=== PATIENT | male | born 1960 | race Caucasian/White ===

== ENCOUNTER → 2016-09-21 | Outpatient (CLI) | payer BC ==
[2016-09-21 11:02] LABS: Basophils # (A) 0.1 k/uL (0-0.2); Basophils % (A) 1 %; CH 29.5; CHCM 33.6; Eosinophils # (A) 0.2 k/uL (0-0.7); Eosinophils % (A) 2 %; HCT 48.9 % (39.0-53.0); HDW 2.71; HGB 16.4 gm/dL (13.0-17.5); Luc # (Auto) 0.14; Luc % (Auto) 2; Lymphocytes # (A) 2.6 k/uL (1.0-4.8); Lymphocytes % (A) 28 %; MCH 29.6 pg (25.0-35.0); MCHC 33.5 g/dL (31.0-37.0); MCV 88.3 fL (80.0-100.0); Mean Platelet Volume 8.8; Monocytes # (A) 0.7 k/uL (0-1.0); Monocytes % (A) 7 %; Neutrophils # (A) 5.7 k/uL (1.3-7.7); Neutrophils % (A) 61 %; RBC 5.53 m/uL (4.30-5.90); RDW 13.5 % (11.5-15.5); WBC 9.4 k/uL (3.8-10.6); WBC (Perox) 9.46
[2016-09-21 11:08] LABS: ALT 35 U/L (21-72); AST 29 U/L (17-59); Alkaline Phosphatase 45 U/L (38-126); Anion Gap 12 mmol/L; Blood Urea Nitrogen 10 mg/dL (9-20); Calcium 9.1 mg/dL (8.4-10.2); Carbon Dioxide 27 mmol/L (22-30); Chloride 102 mmol/L (98-107); Cholesterol 144 mg/dL (<200); Glucose 110 mg/dL (74-99); HDL Cholesterol 36 mg/dL (40-60); Non-African American GFR(MDRD) >60 (>60 ml/min/1.73 sqM); Sodium 141 mmol/L (137-145); Total Bilirubin 0.9 mg/dL (0.2-1.3); Triglycerides 220 mg/dL (<150); Uric Acid 8.7 mg/dL (3.5-8.5)
[2016-09-21 11:38] LABS: Prostate Specific Antigen <0.06 ng/mL (0.00-4.00)
[2016-09-21 12:25] LABS: Appearance,Urine Turbid (Clear); Bilirubin,Urine Negative (Negative); Glucose,Urine (UA) Negative (Negative); Ketones,Urine Negative (Negative); Leukocyte Esterase,Urine Large (Negative); Mucus,Urine Occasional /hpf; Nitrite,Urine Negative (Negative); PH, Urine 7.5 (5.0-8.0); Particle Count 134052; Protein,Urine Trace (Negative); RBC,Urine 13 /hpf (0-5); Squamous Epithelial Cell,Urine 8 /hpf (0-4); UA Billing (MACRO vs. MICRO) MICRO; Urobilinogen,Urine <2.0 mg/dL (<2.0); WBC,Urine >182 /hpf (0-5)
[2016-09-21 12:46] LABS: Hepatitis C Virus IgG Ab Negative (Negative); Hepatitis C Virus IgG Index 0.03
== END | disposition home or self-care (01) ==
LOC: LABWHC1 10:36
PROVIDERS: ATTEND Family Medicine
DX: Z00.01 Encounter for general adult medical examination with abnormal findings (principal); I10 Essential (primary) hypertension; R33.9 Retention of urine, unspecified; M10.9 Gout, unspecified; Z13.9 Encounter for screening, unspecified
CPT/HCPCS: 36415; 80053; 80061; 81001; 84153; 84550; 85025; 86803

== ENCOUNTER 2023-09-26 19:17 | Inpatient (IN) | payer BC ==
[2023-09-26] MEDS: MIDAZOLAM 1 MG/ML 5 ML VIAL IV STA (19:20)
[2023-09-26] MEDS ORDERED: NITROGLYCERIN SL TABS 0.4 MG TAB SUBLINGUAL PRN ×2 (19:29→21:06)
[2023-09-26] MEDS ORDERED: HEPARIN SODIUM 1,000 UN/ML (10ML VL) IV PRN (19:30)
--- NOTE | 2023-09-26 19:31 | ED ---
CPR HPI - General Chief Complaint: Cardiac Arrest/CPR Stated Complaint: Stemi Source: EMS, RN notes reviewed, old records reviewed Mode of arrival: EMS Limitations: no limitations - History of Present Illness Initial Comments: This is a 62-year-old male to the ER for evaluation today. Patient presents today for evaluation regards to w cardiac arrest. Patient brought in by EMS after getting ACLS protocol. Patient did have a ventricular tachycardia versus ventricular fibrillation arrest with ST elevation on initial EKG Patient was paged ST elevation LA prehospital MD Complaint: found unresponsive, collapsed during rest -: hour(s) (30) Place: home Bystander CPR Performed: No AED Applied by Bystander/Subcontract Manager: Yes Shock Advised: Yes Number of Shocks Delivered: 1 ROSC in the Field: Yes Associated Injuries: Yes Associated Symptoms: chest pain Treatments Prior to Arrival: BMV, other airway device, epinephrine mgs # - Related Data Home Medications Medication Instructions Recorded Confirmed amLODIPine BESYLATE [Amlodipine 10 mg PO DAILY 11/05/15 09/26/23 Besylate] lisinopriL [Lisinopril] 40 mg PO DAILY 11/05/15 09/26/23 Tamsulosin HCl [Flomax] 0.4 mg PO DAILY 02/15/16 09/26/23 Indomethacin [Indocin] 50 mg PO TID PRN 09/26/23 09/26/23 Tamsulosin [Flomax] 0.4 mg PO DAILY 09/26/23 09/26/23 allopurinoL [Zyloprim] 300 mg PO BID 09/26/23 09/26/23 Allergies Allergy/AdvReac Type Severity Reaction Status Date / Time No Known Allergies Allergy Verified 09/26/23 19:23 Review of Systems ROS Statement: Those systems with pertinent positive or pertinent negative responses have been documented in the HPI. ROS Other: All systems not noted in ROS Statement are negative. Past Medical History Past Medical History: Hypertension Additional Past Medical History / Comment(s): POSS BPH, NOT EMPTYING BLADDER COMPLETELY, TRYING NEW RX. History of Any Multi-Drug Resistant Organisms: None Reported Past Surgical History: Orthopedic Surgery Additional Past Surgical History / Comment(s): CYST REMOVED RT WRIST. COLONOSCOPY. SINUS SX Past Anesthesia/Blood Transfusion Reactions: No Reported Reaction Past Psychological History: No Psychological Hx Reported Past Alcohol Use History: Occasional Past Drug Use History: None Reported - Past Family History Mother Family Medical History: No Reported History General Exam General appearance: alert, in no apparent distress Head exam: Present: atraumatic, normocephalic, normal inspection Eye exam: Present: normal appearance, PERRL, EOMI. Absent: scleral icterus, conjunctival injection, periorbital swelling ENT exam: Present: normal exam, mucous membranes moist Neck exam: Present: normal inspection. Absent: tenderness, meningismus, lymphadenopathy Respiratory exam: Present: normal lung sounds bilaterally. Absent: respiratory distress, wheezes, rales, rhonchi, stridor Cardiovascular Exam: Present: regular rate, normal rhythm, normal heart sounds. Absent: systolic murmur, diastolic murmur, rubs, gallop, clicks GI/Abdominal exam: Present: soft, normal bowel sounds. Absent: distended, tenderness, guarding, rebound, rigid Extremities exam: Present: normal inspection, full ROM, normal capillary refill. Absent: tenderness, pedal edema, joint swelling, calf tenderness Back exam: Present: normal inspection Neurological exam: Present: alert, oriented X3, CN II-XII intact Psychiatric exam: Present: normal affect, normal mood Skin exam: Present: warm, dry, intact, normal color. Absent: rash Course Vital Signs 09/26/23 09/26/23 09/26/23 19:19 19:25 19:40 Temperature 97.9 F Pulse Rate 74 84 Respiratory 20 20 Rate Blood Pressure 95/80 96/65 O2 Sat by Pulse 86 L 100 Oximetry Fraction of 100 Inspired Oxygen (FIO2) - Reevaluation(s) Reevaluation #1: 09/26/23 20:45 Medical records reviewed Reevaluation #2: 09/26/23 20:45 Patient symptoms unchanged Reevaluation #3: 09/26/23 20:45 Patient informed of results and questions answered Reevaluation #4: Was pt. sent in by a medical professional or institution (, PA, FEATHERER, urgent care, hospital, or alf...) When possible be specific @ -no Did you speak to anyone other than the patient for history (EMS, parent, family, police, friend...)? What history was obtained from this source @ -no Did you review nursing and triage notes (agree or disagree)? Why? @ -agree Are old charts reviewed (outside hosp., previous admission, EMS record, old EKG, old radiological studies, urgent care reports/EKG's, alf records)? Report findings @ -yes Differential Diagnosis (chest pain, altered mental status, abdominal pain women, abdominal pain men, vaginal bleeding, weakness, fever, dyspnea, syncope, headache, dizziness, GI bleed, back pain, seizure, CVA, palpatations, mental health, musculoskeletal)? @ -prior EKG interpreted by me (3pts min.). @ -yes X-rays interpreted by me (1pt min.). @ -yes negative for acute disease CT interpreted by me (1pt min.). @ -no U/S interpreted by me (1pt. min.). @ -no What testing was considered but not performed or refused? (CT, X-rays, U/S, labs)? Why? @ -none What meds were considered but not given or refused? Why? @ -none Did you discuss the management of the patient with other professionals (professionals i.e. , PA, FEATHERER, lab, RT, psych nurse, social services assistant, dryland farmer, teacher, security police officer, case supervisor)? Give summary @ -no Was smoking cessation discussed for >3mins.? @ -no Were there social determinants of health that impacted care today? How? (Homelessness, low income, unemployed, alcoholism, drug addiction, tr ansportation, low edu. Level, literacy, decrease access to med. care, care home, rehab)? @ -none Was there de-escalation of care discussed even if they declined (Discuss DNR or withdrawal of care, Hospice)? DNR status @ -no What co-morbidities impacted this encounter? (DM, HTN, Smoking, COPD, CAD, Canc er, CVA, ARF, Chemo, Hep., AIDS, mental health diagnosis, sleep apnea, morbid obesity)? @ -none Was patient admitted / discharged? Hospital course, mention meds given and route, prescriptions, significant lab abnormalities, going to OR and other pertinent info. @ - 62 male to the ER for evaluation of significant for cardiac arrest ventricular tachycardic arrest patient will be admitted to the Lead Technical [facility] for cardiac arrest Admitted Was critical care preformed (if so, how long)? @ -yes31 Undiagnosed new problem with uncertain prognosis? @ -no Drug Therapy requiring intensive monitoring for toxicity (Heparin, Nitro, Insulin, Cardizem)? @ -no Were any procedures done? @ -no Diagnosis/symptom? @ - Acute, or cardiopulmonary arrest or Acute on Chronic? @ -Acute Uncomplicated (without systemic symptoms) or Complicated (systemic symptoms)? @ -Complicated Side effects of treatment? @ -no Exacerbation, Progression, or Severe Exacerbation? @ -exacerbation Poses a threat to life or bodily function? How? (Chest pain, USA, LA, pneumonia, PE, COPD, DKA, ARF, appy, cholecystitis, CVA, Diverticulitis, Homicidal, Suicidal, threat to staff... and all critical care pts) @ -yes with significant ST elevated [place] Reevaluation #5: Hypoxia,Hacidosis,HyperK,HypoGlycemia,Hypotension Trauma,Toxin,Tamponade,Ptx,Thrombosis - Consultations Consultation #1: With Dr. Carlson seeing patient here in the emergency department Consultation #2: Spoke with [facility] who agrees to admit this patient Procedures - Intubation Sedative: Versed Laryngoscope: Sujey Size: 4 ET Tube Size: 8.5 ET Tube Uncuffed: Yes Tube Secured Location: teeth Tube Placement Confirmation: visualized tube passing through cords, equal breath sounds bilaterally Patient Tolerated Procedure: well Intubation Complications: none, difficult intubation Medical Decision Making - Medical Decision Making 62 male to the ER for evaluation of significant for cardiac arrest ventricular tachycardic arrest patient will be admitted to the Lead Technical Architect for cardiac arrest - Lab Data Result diagrams: 09/30/23 04:16 09/30/23 04:16 Lab Results 09/26/23 09/26/23 09/26/23 Range/Units 19:20 19:20 19:20 WBC (3.8-10.6) k/uL RBC (4.30-5.90) m/uL Hgb (13.0-17.5) gm/dL Hct (39.0-53.0) % MCV (80.0-100.0) fL MCH (25.0-35.0) pg MCHC (31.0-37.0) g/dL RDW (11.5-15.5) % Plt Count (150-450) k/uL MPV Neutrophils % % Lymphocytes % % Monocytes % % Eosinophils % % Basophils % % Neutrophils # (1.3-7.7) k/uL Lymphocytes # (1.0-4.8) k/uL Monocytes # (0-1.0) k/uL Eosinophils # (0-0.7) k/uL Basophils # (0-0.2) k/uL PT 11.7 (10.0-12.5) sec INR 1.1 (<1.2) APTT 25.2 (22.0-30.0) sec Sodium 136 L (137-145) mmol/L Potassium 4.3 (3.5-5.1) mmol/L Chloride 103 (98-107) mmol/L Carbon Dioxide 21 L (22-30) mmol/L Anion Gap 12 mmol/L BUN 18 (9-20) mg/dL Creatinine 1.10 (0.66-1.25) mg/dL Est GFR (CKD-EPI)AfAm 82 (>60 ml/min/1.73 sqM) Est GFR (CKD-EPI)NonAf 71 (>60 ml/min/1.73 sqM) Glucose 230 H (74-99) mg/dL Calcium 8.6 (8.4-10.2) mg/dL Magnesium 1.7 (1.6-2.3) mg/dL Total Bilirubin 0.8 (0.2-1.3) mg/dL AST 125 H (17-59) U/L ALT 73 H (4-49) U/L Alkaline Phosphatase 49 (38-126) U/L Troponin I 0.482 H* (0.000-0.034) ng/mL Total Protein 6.4 (6.3-8.2) g/dL Albumin 3.8 (3.5-5.0) g/dL 09/26/23 Range/Units 19:29 WBC 18.9 H (3.8-10.6) k/uL RBC 5.31 (4.30-5.90) m/uL Hgb 15.8 (13.0-17.5) gm/dL Hct 50.1 (39.0-53.0) % MCV 94.3 (80.0-100.0) fL MCH 29.8 (25.0-35.0) pg MCHC 31.6 (31.0-37.0) g/dL RDW 13.3 (11.5-15.5) % Plt Count 272 (150-450) k/uL MPV 9.8 Neutrophils % 79 % Lymphocytes % 17 % Monocytes % 2 % Eosinophils % 1 % Basophils % 1 % Neutrophils # 15.0 H (1.3-7.7) k/uL Lymphocytes # 3.1 (1.0-4.8) k/uL Monocytes # 0.4 (0-1.0) k/uL Eosinophils # 0.2 (0-0.7) k/uL Basophils # 0.2 (0-0.2) k/uL PT (10.0-12.5) sec INR (<1.2) APTT (22.0-30.0) sec Sodium (137-145) mmol/L Potassium (3.5-5.1) mmol/L Chloride (98-107) mmol/L Carbon Dioxide (22-30) mmol/L Anion Gap mmol/L BUN (9-20) mg/dL Creatinine (0.66-1.25) mg/dL Est GFR (CKD-EPI)AfAm (>60 ml/min/1.73 sqM) Est GFR (CKD-EPI)NonAf (>60 ml/min/1.73 sqM) Glucose (74-99) mg/dL Calcium (8.4-10.2) mg/dL Magnesium (1.6-2.3) mg/dL Total Bilirubin (0.2-1.3) mg/dL AST (17-59) U/L ALT (4-49) U/L Alkaline Phosphatase (38-126) U/L Troponin I (0.000-0.034) ng/mL Total Protein (6.3-8.2) g/dL Albumin (3.5-5.0) g/dL - EKG Data -: EKG Interpreted by Me (EKG shows flutter waves 58 QRS 72 QTc 566) Rate: bradycardia - Radiology Data Radiology results: report reviewed (Chest x-ray shows positive ET tube placement), image reviewed Critical Care Time Critical Care Time: Yes Total Critical Care Time: 31 Disposition Clinical Impression: Acute myocardial infarction, Acute respiratory failure, Cardiac arrest, Ventricular tachycardia Disposition: ADMITTED IP TO THIS [facility] Condition: Critical Is patient prescribed a controlled substance at d/c from ED?: No Time of Disposition: 19:55
[2023-09-26] MEDS: HEPARIN SODIUM 1,000 UN/ML (10ML VL) IV ONE (19:40)
[2023-09-26] MEDS ORDERED: VERAPAMIL 2.5 MG/ML 2 ML AMP ONE (19:40)
[2023-09-26] MEDS: ASPIRIN 300 MG SUPP RECTAL STA (19:41)
[2023-09-26] MEDS: SODIUM CHLORIDE 0.9% 500 ML 500 ML IV STA (19:41)
[2023-09-26] MEDS ORDERED: LIDOCAINE 1% INJ 10MG/ML (20 ML MDV) ONE (19:41)
[2023-09-26] MEDS ORDERED: fentaNYL (PF) 50 MCG/ML 2 ML AMP ONE (19:41)
[2023-09-26] MEDS ORDERED: HEPARIN SODIUM 1,000 UN/ML (10ML VL) ONE (19:41)
[2023-09-26] MEDS: SODIUM CHLORIDE 0.9% 1,000 ML IV ONE (19:49)
[2023-09-26 19:55] LABS: Basophils # (A) 0.2 k/uL (0-0.2); Basophils % (A) 1 %; Eosinophils # (A) 0.2 k/uL (0-0.7); Eosinophils % (A) 1 %; HCT 50.1 % (39.0-53.0); HGB 15.8 gm/dL (13.0-17.5); Lymphocytes # (A) 3.1 k/uL (1.0-4.8); Lymphocytes % (A) 17 %; MCH 29.8 pg (25.0-35.0); MCHC 31.6 g/dL (31.0-37.0); MCV 94.3 fL (80.0-100.0); Mean Platelet Volume 9.8; Monocytes # (A) 0.4 k/uL (0-1.0); Monocytes % (A) 2 %; Neutrophils % (A) 79 %; Platelet Count 272 k/uL (150-450); RBC 5.31 m/uL (4.30-5.90); RDW 13.3 % (11.5-15.5); WBC 18.9 k/uL (3.8-10.6)
--- NOTE | 2023-09-26 19:56 | P.CRDCN ---
History of Present Illness History of present illness: HISTORY OF PRESENTING ILLNESS This is a pleasant 62-year-old with past medical history significant for obesity, gout, hypertension. patient unresponsive on ventilator and history is supplied by chart, EMS and ER. Per EMS patient had been with his and had been feeling fine and actually had a recent visit within the last few days with one of his doctors and was told he was doing fairly well. apparently patient had slumped over at the table and became unresponsive. No reported complaints prior to this. EMS was called and was there with patient not having a pulse and given CPR and epinephrine with reported initial rhythm of PEA and then second pulse check ventricular tachycardia. Patient had wide complex rhythm and EKG concerning for ST elevation anteriorly and therefore granulating blender was activated in route.per report from EMS patient had been down believes approximately 10 mi nutes. did not give CPR. Patient had agonal breathing on arrival and pinpoint pupils and nonresponsive. Patient was not given more sedation and not responding after return of spontaneous circulation. Patient was however given 10 mg of Versed in the emergency department and currently unresponsive on ventilator. EKG showing atrial flutter with slow ventricular rate, right bundle branch morphology with Q waves inferiorly and ST depressions in the lateral leads. previous EKG from 2016 did show right bundle-branch morphology with first-degree block and sinus bradycardia as well as ST depressions in the lateral leads. he is not on any pressors and blood pressures in the 90s over 80s. chest x-ray has not been interpreted however shows cardiomegaly and vascular congestion. REVIEW OF SYSTEMS At the time of my exam: unable to obtain secondary to sedation, unresponsive PHYSICAL EXAMINATION Vital signs reviewed. CONSTITUTIONAL: No apparent distress, obese, unresponsive on vent HEENT: Head is normocephalic. Pupils are equal, round. Sclerae anicteric. +ETT No JVD. No carotid bruit. CHEST EXAMINATION: Lungs are clear to auscultation. No chest wall tenderness is noted on palpation or with deep breathing. HEART EXAMINATION: Regular rate and rhythm. S1, S2 heard. No murmurs, gallops or rub. ABDOMEN: Soft, nontender. Positive bowel sounds. EXTREMITIES: 2+ peripheral pulses, no lower extremity edema and no calf tenderness. NEUROLOGIC EXAMINATION: Patient is awake, alert and oriented x3. ASSESSMENT 1. Cardiac arrest concerning for acute coronary syndrome 2. Reported ST elevation in EMS, EKG on presentation not meeting criteria for ST elevation 3. New-onset atrial flutter with slow ventricular rate 4. History of sinus bradycardia 5. Hypertension, currently borderline 6. Altered mental status, rule out anoxic brain injury 7. Morbid obesity PLAN Patient with acute onset cardiac arrest concerning for cardiac etiology. EKG not meeting criteria for STEMI however given presentation, risk factors and EKG having ST depressions we will check left heart catheterization for definitive evaluation. Check 2-D echo. If heart cath normal, would consider workup to rule out PE. Pressors as needed. Further recommendations to follow. Past Medical History Past Medical History: Hypertension Additional Past Medical History / Comment(s): POSS BPH, NOT EMPTYING BLADDER COMPLETELY, TRYING NEW RX. History of Any Multi-Drug Resistant Organisms: None Reported Past Surgical History: Orthopedic Surgery Additional Past Surgical History / Comment(s): CYST REMOVED RT WRIST. COLONOSCOPY. SINUS SX Past Anesthesia/Blood Transfusion Reactions: No Reported Reaction Past Psychological History: No Psychological Hx Reported Past Alcohol Use History: Occasional Past Drug Use History: None Reported - Past Family History Mother Family Medical History: No Reported History Medications and Allergies Home Medications Medication Instructions Recorded Confirmed Type Aspirin [Adult Low Dose Aspirin EC] 81 mg PO DAILY 11/05/15 02/15/16 History Metoprolol Tartrate [Lopressor] 100 mg PO DAILY 11/05/15 02/16/16 History Multivitamin [Men's Multi-Vitamin] 1 each PO DAILY 11/05/15 02/15/16 History amLODIPine BESYLATE [Amlodipine 10 mg PO DAILY 11/05/15 02/16/16 History Besylate] lisinopriL [Lisinopril] 40 mg PO DAILY 11/05/15 02/16/16 History Tamsulosin HCl [Flomax] 0.4 mg PO DAILY 02/15/16 02/16/16 History Docusate [Colace] 100 mg PO BID #30 capsule 02/16/16 Rx HYDROcodone/APAP 5-325MG [[place] 1 tab PO Q4HR PRN #30 tab 02/16/16 Rx 5-325] Allergies Allergy/AdvReac Type Severity Reaction Status Date / Time No Known Allergies Allergy Verified 09/26/23 19:23 Physical Exam Vitals: Vital Signs Pulse Resp BP Pulse Ox 09/26/23 19:19 74 20 95/80 86 L Intake and Output 09/26/23 09/26/23 09/26/23 06:59 14:59 22:59 Other: Weight 158.757 kg Results Current Medications Generic Name Dose Route Start Last Admin Trade Name Freq PRN Reason Stop Dose Admin Heparin Sodium (Porcine) 0 unit 09/26/23 19:30 Heparin Sodium 1,000 Un/Ml (10ml Vl) IV PER PROTOCOL PRN Low PTT Protocol Sodium Chloride 500 mls @ 999 mls/hr 09/26/23 19:29 09/26/23 19:41 Saline 0.9% IV 09/26/23 19:59 999 mls/hr .Q31M STA Administration Amiodarone HCl 360 mg/ 200 mls @ 33.333 mls/hr 09/26/23 20:00 Dextrose/Water IV 09/27/23 01:59 .Q6H ONE Protocol 1 MG/MIN Amiodarone HCl 450 mg/ 250 mls @ 16.667 mls/hr 09/27/23 02:00 Dextrose/Water IV 09/27/23 19:59 .Q15H MARICRUZ Protocol 0.5 MG/MIN Heparin Sodium/Sodium Chloride 250 mls @ 10 mls/hr 09/26/23 19:30 25,000 unit/ Sodium Chloride IV .Q24H MARICRUZ Protocol 6.299 UNITS/KG/HR Nitroglycerin 0.4 mg 09/26/23 19:29 Nitroglycerin Sl Tabs 0.4 Mg Tab SUBLINGUAL Q5M PRN Chest Pain Intake and Output 09/26/23 09/26/23 09/26/23 06:59 14:59 22:59 Other: Weight 158.757 kg Patient Weight 09/27/23 06:59 Weight 158.757 kg
[2023-09-26] MEDS ORDERED: NALOXONE 0.4 MG/ML 1 ML VIAL IV PRN (19:57)
[2023-09-26] MEDS ORDERED: AMIODARONE 360 MG in DEXTROSE 5% IN WATER 200 ML IV ONE (20:00)
[2023-09-26] MEDS: LIDOCAINE 1% INJ 10MG/ML (20 ML MDV) SQ ONE (20:02)
[2023-09-26] MEDS: VERAPAMIL SYRINGE (5 MG/10 ML) INTRAARTER ONE (20:02)
[2023-09-26 20:04] LABS: INR 1.1 (<1.2); Partial Thromboplastin Time 25.2 sec (22.0-30.0); Prothrombin Time 11.7 sec (10.0-12.5)
[2023-09-26 20:07] LABS: ALT 73 U/L (4-49); AST 125 U/L (17-59); African American GFR (CKD) 82 (>60 ml/min/1.73 sqM); Albumin 3.8 g/dL (3.5-5.0); Alkaline Phosphatase 49 U/L (38-126); Anion Gap 12 mmol/L; Blood Urea Nitrogen 18 mg/dL (9-20); Calcium 8.6 mg/dL (8.4-10.2); Carbon Dioxide 21 mmol/L (22-30); Chloride 103 mmol/L (98-107); Glucose 230 mg/dL (74-99); Magnesium 1.7 mg/dL (1.6-2.3); Non-African American GFR(CKD) 71 (>60 ml/min/1.73 sqM); Potassium 4.3 mmol/L (3.5-5.1); Sodium 136 mmol/L (137-145); Total Bilirubin 0.8 mg/dL (0.2-1.3); Total Protein 6.4 g/dL (6.3-8.2)
[2023-09-26] MEDS: HEPARIN SODIUM 1,000 UN/ML (10ML VL) IVP ONE (20:07)
[2023-09-26] MEDS: PHENYLEPHRINE 10 MG/ML VIAL IV ONE (20:08)
[2023-09-26] MEDS ORDERED: TICAGRELOR 90 MG TAB ONE (20:24)
[2023-09-26] MEDS: fentaNYL (PF) 50 MCG/1 ML VIAL IVP ONE (20:31)
[2023-09-26] MEDS: MIDAZOLAM 2 MG/2 ML VIAL IVP ONE (20:31)
[2023-09-26] MEDS ORDERED: ONDANSETRON 4 MG/2 ML VIAL IVP PRN (20:37)
[2023-09-26] MEDS: TICAGRELOR 90 MG TAB OG-TUBE ONE (20:50)
[2023-09-26] MEDS: IOPAMIDOL-370 100ML BTL INJ ONE ×2 (20:50)
[2023-09-26] MEDS ORDERED: ATROPINE SULFATE 0.1 MG/ML 10ML SYRINGE IV PRN (21:06)
[2023-09-26] MEDS ORDERED: ZOLPIDEM 5 MG TAB PO PRN (21:06)
[2023-09-26] MEDS ORDERED: RX INFO: IV CONTRAST WAS GIVEN 1 EACH MISC MISCELLANE PRN (21:06)
[2023-09-26] MEDS ORDERED: MAG HYDROX/AL HYDROX/SIMETH 30 ML CUP PO PRN (21:06)
[2023-09-26 21:16] LABS: Glucose,Whole Blood 152 mg/dL (70-110)
--- NOTE | 2023-09-26 21:17 | P.PRCINT ---
Percutaneous Coronary Int. - Percutaneous Coronary Intervention Percutaneous Coronary Intervention: PROCEDURES PERFORMED: Left heart catheterization, bilateral coronary angiography, ultrasound guided arterial access, IVUS LAD, PCI mid LAD with a 3.25 x 28mm Xience MARIO, post dilated with a 3.25mm NC balloon INDICATION: Cardiac arrest, NSTEMI CONSENT:I have discussed the risks, benefits and alternative therapies for the above-mentioned procedure and for both sedation/analgesia as well as necessary blood product administration, if indicated, as they pertain to this patient. The patient has indicated understanding and acceptance of the risks and procedures discussed. PROCEDURE: After the risks, benefits and alternatives of the above mentioned procedure explained in detail with the patient, informed consent was obtained. Patient was taken to the catheterization lab and prepped and draped in usual fashion. Ultrasound guidance was used to assess for arterial access. 1% lidocaine was used to anesthetize the right radial artery. A 6-Cuban sheath was placed in the right radial artery using modified Seldinger technique and ultrasound guidance. Left coronary angiography was performed with a 5-Cuban JL 3.5 catheter and right coronary angiography was performed with a 5-Cuban FR5 catheter in various views. A 5-Cuban FR5 catheter was inserted into the left ventricle and pressure measurements were obtained. There was haziness of the mid LAD with 80% appearing plaque. Therefore the decision was made to perform intravascular ultrasound/PCI of the LAD. A 6- [place] CLS 4.0 guide catheter was used to engage the left main. A 0.014 BMW wire was advanced in the distal LAD. Intravascular ultrasound showed diffuse mild plaque however no other focal 80% stenosis of the mid LAD with thrombus. Therefore decision made to perform PCI of LAD. The lesion was predilated with a 3.0 mm balloon. The reference vessel diameter was 3.25 mm. There was more diffuse distal 60-70% stenosis however mid LAD. The culprit lesion and therefore this was left for medical therapy. PCI was performed with a 3.25 x 28mm Xience MARIO. The proximal midportion of the stent were postdilated with a 3.25 mm noncompliant balloon. Repeat intravascular ultrasound showed well- expanded stent with no dissection and good stent apposition. Final angiograms were performed. Pre-intervention there is 80% stenosis and CECELIA-3 flow and postintervention there was less than 10% stenosis with CECELIA 3 flow. The right radial sheath was removed and a TR band was placed with hemostasis achieved. The patient tolerated the procedure well. Patient was transported back to the post catheterization holding area in stable condition. Conscious Sedation: Patient was monitored under the direct supervision of myself for conscious sedation using Versed and fentanyl for a total duration of 45 minutes HEMODYNAMICS: AO: 96/72 LV: 97/10, LVEDP 22 SELECTIVE CORONARY ARTERIOGRAPHY: LEFT MAIN: The left main is a large caliber vessel which bifurcates into the LAD and circumflex. There is no significant stenosis. LEFT ANTERIOR DESCENDING CORONARY ARTERY: LAD is a large caliber vessel which wraps around to the apex. There is no significant proximal LAD stenosis. Diagonal 1 is moderate caliber with a proximal to mid 40% stenosis. The entire mid to distal LAD has some diffuse disease with more focal 80% long tubular mid LAD stenosis after a larger first septal. The distal LAD has tandem 60% and 60- 70% stenosis. LEFT CIRCUMFLEX CORONARY ARTERY: Left circumflex is a moderate caliber vessel with a mid circumflex 30% stenosis. RIGHT CORONARY ARTERY: The right coronary artery is a large caliber vessel which gives off a PDA and PLV branch and is the dominant vessel. There is diffuse proximal to distal RCA disease with 20-30% stenoses. The mid to distal RCA has a focal 50-60% stenosis. FINAL IMPRESSION: 1. CAD as described above including 80% mid LAD, distal LAD 60-70%, circumflex 30% and mid to distal RCA 50-60% stenosis. 2. Elevated left sided filling pressures 3. S/p cardiac arrest PLAN: 1. Aggressive risk factor modification per most recent ACC/AHA guidelines. 2. Continue dual antiplatelets with aspirin and Brillinta for 12 months 3. Recommend medical therapy for RCA and distal LAD and less patient having more significant angina.
--- NOTE | 2023-09-26 21:28 | XR ---
EXAM: XR chest 1V portable CLINICAL INDICATION:Male, 62 years old with history of chest pain; [facility] COMPARISON: None. TECHNIQUE: Chest single view. FINDINGS: Lines/tubes/devices: ET tube tip about 2.9 cm above the diamante. Cardiomediastinum: Cardiac silhouette appears mildly enlarged. Unremarkable mediastinal silhouette. Vasculature: Mildly increased pulmonary vasculature. Lungs/pleura: No consolidation, sizeable effusion, or visible pneumothorax. Bones/soft tissues: Bony thorax appears grossly intact as seen. Regional soft tissues appear unremarkable. IMPRESSION: Mild cardiomegaly and mild pulmonary vascular congestion. ET tube in good position.
[2023-09-26 22:09] LABS: ABG Base Excess 0.4 mmol/L; ABG HCO3 26 mmol/L (21-25); ABG Oxygen Saturation 97.5 % (94-97); ABG PCO2 46 mmHg (35-45); ABG PH 7.37 (7.35-7.45); ABG PO2 100 mmHg (83-108); Allen Test Performed? Yes
[2023-09-26] MEDS: propofoL 100 ML IV ONE ×2 (23:15)
[2023-09-26] MEDS: SODIUM CHLORIDE 0.9% 1,000 ML IV SCH (23:15)
[2023-09-26] MEDS: HEPARIN SOD,PORK IN 0.45% NACL 25,000 UNIT in 0.45% NACL 1 250ML.BAG IV SCH (23:15)
--- NOTE | 2023-09-26 23:25 | XR ---
EXAM: XR Chest, 1 View CLINICAL HISTORY: ITS.REASON XR Reason: OG tube placement TECHNIQUE: Frontal view of the chest. COMPARISON: No relevant prior studies available. FINDINGS: Lungs: Unremarkable. No consolidation. Pleural space: Unremarkable. No pneumothorax. Heart: Unremarkable. No cardiomegaly. Mediastinum: Unremarkable. Normal mediastinal contour. Bones/joints: Unremarkable. No acute fracture. Tubes, lines and devices: Feeding tube terminates in the stomach. IMPRESSION: Feeding tube terminates in the stomach.
[2023-09-27] MEDS: HEPARIN SODIUM,PORCINE 5,000 UNIT/ML 1 ML VIAL SQ SCH (00:21)
[2023-09-27] MEDS: ATORVASTATIN 80 MG TAB PO SCH (00:21)
--- NOTE | 2023-09-27 01:04 | P.PCN ---
Date of Procedure: 09/27/23 Preoperative Diagnosis: Cardiac arrest, acute hypoxemic respiratory failure Postoperative Diagnosis: Cardiac arrest, acute hypoxemic respiratory failure Procedure(s) Performed: Insertion of a left wrist radial arterial line Indications for Procedure: Continuous blood pressure monitoring and frequent blood draws Description of Procedure: Informed consent was obtained, and a procedural timeout was performed . The patient was placed in supine position. The left radial region was prepared in a sterile fashion, and a sterile drape was applied. The left radial artery was palpated, easily cannulated, and a guidewire was placed. A Cook catheter was inserted over the guidewire, and the guidewire was removed. There was good arterial blood flow, good arterial waveform, and no complications. The line was secured with using a 3-0 silk suture.
[2023-09-27] MEDS: CHLORHEXIDINE GLUCONATE 15 ML CUP MUCOUS MEM SCH (01:57)
[2023-09-27] MEDS ORDERED: AMIODARONE 450 MG in DEXTROSE 5% IN WATER 250 ML IV SCH (02:00)
--- NOTE | 2023-09-27 02:15 | P.CNPUL ---
History of Present Illness Consult date: 09/27/23 Requesting physician: Eric Marcelo Reason for consult: other (Out of hospital cardiac arrest) Chief complaint: Out of hospital cardiac arrest History of present illness: Patient is a 62-year-old white male with past medical history significant for hypertension, obesity, and former tobacco smoker. Patient is currently intensive care unit, intubated and unable to provide any information. On review of the patient's EMR, the patient was an out of hospital cardiac arrest. He was apparently playing a board game on his phone, slumped over and became unresponsive. His then called 911. Patient was noted to have a V. tach/V- fib arrest by EMS. Estimated time before EMS arrival was 10 minutes, and did not provide CPR. ROSC was achieved in the field by EMS. May have had some ST elevation on initial EKG per EMS. On arrival to the emergency room, he was noted to be unresponsive after ROSC. The patient was intubated by the ER physician. Initial EKG done on arrival showed atrial flutter with slow ventricular rate, right bundle branch with Q waves inferiorly and ST depression in the lateral leads. Patient was emergently taken to the [facility], and was noted to have multivessel coronary artery disease including 80% stenosis of the mid LAD, 30% stenosis of the left circumflex, and 50 to 60% stenosis of the RCA. Patient did receive PCI/stenting of the mid LAD. He was then transferred to the intensive care unit in critical condition. I am evaluating this patient in room 262. He is intubated to the mechanical ventilator. Chest x-ray shows the endotracheal tube approximately 2.9 cm above the diamante. NG tube courses into the stomach. There is mild cardiomegaly and pulmonary vascular congestion. No effusions, pneumothoraces, focal infiltrates. Current ventilator settings include assist-control, respiratory rate 18, tidal volume 500, FiO2 60%, PEEP of 5. He is breathing above set rate in the mid 20s. ABGs done on the above- mentioned settings but an FiO2 of 100% had a PaO2 of 100, pCO2 46, pH of 7.37. He is sedated on propofol at 40 mcg/kg/min. Does not follow any commands. Unresponsive to painful stimuli at this time. Heart rhythm on bedside monitor appears first-degree AV block, with a heart rate of 60 bpm. Blood pressure is normotensive. He has received a total of 1.5 L normal saline bolus since arrival to the emergency room. Currently has normal saline infusing at 75 mL/h. No vasopressors have been required. Temperature currently 98.5 F. CBC on arrival: WBC count 18.9, hemoglobin 15.8, hematocrit 50.1, platelets 272. CMP on arrival: Sodium 136, potassium 4.3, chloride 103, serum bicarb 21, BUN 18, creatinine 1.1, glucose 230. Lactic acid level 3.1 and down to 2.2. LFTs mildly elevated. Troponin 0.482 and 0.848 respectively. NT proBNP 2900. Patient's has already left and went home for the night. Review of Systems ROS unobtainable: due to endotracheal tube, due to mental status Past Medical History Past Medical History: Hypertension Additional Past Medical History / Comment(s): POSS BPH, NOT EMPTYING BLADDER COMPLETELY, TRYING NEW RX. History of Any Multi-Drug Resistant Organisms: None Reported Past Surgical History: Orthopedic Surgery Additional Past Surgical History / Comment(s): CYST REMOVED RT WRIST. COLONOSCOPY. SINUS SX Past Anesthesia/Blood Transfusion Reactions: No Reported Reaction Past Psychological History: No Psychological Hx Reported Smoking Status: Never smoker Past Alcohol Use History: Occasional Past Drug Use History: None Reported - Past Family History Mother Family Medical History: No Reported History Medications and Allergies Home Medications Medication Instructions Recorded Confirmed Type amLODIPine BESYLATE [Amlodipine 10 mg PO DAILY 11/05/15 09/26/23 History Besylate] lisinopriL [Lisinopril] 40 mg PO DAILY 11/05/15 09/26/23 History Tamsulosin HCl [Flomax] 0.4 mg PO DAILY 02/15/16 09/26/23 History Indomethacin [Indocin] 50 mg PO TID PRN 09/26/23 09/26/23 History Tamsulosin [Flomax] 0.4 mg PO DAILY 09/26/23 09/26/23 History allopurinoL [Zyloprim] 300 mg PO BID 09/26/23 09/26/23 History Allergies Allergy/AdvReac Type Severity Reaction Status Date / Time No Known Allergies Allergy Verified 09/26/23 19:23 Physical Exam Vitals: Vital Signs Temp Pulse Pulse Resp BP BP Pulse Ox 09/27/23 00:01 09/26/23 23:45 62 26 H 99/72 94 L 09/26/23 23:30 63 18 93/70 94 L 09/26/23 23:22 09/26/23 23:15 61 25 H 92/62 99 09/26/23 23:00 63 23 85/61 99 09/26/23 22:45 63 19 87/62 99 09/26/23 22:30 98.5 F 68 63 18 83/53 110/79 99 09/26/23 22:15 66 26 H 68/41 99 09/26/23 22:00 66 18 92/62 99 09/26/23 21:51 98.5 F 66 26 H 09/26/23 21:45 76 18 94/63 99 09/26/23 21:30 75 32 H 114/80 99 09/26/23 21:18 09/26/23 21:15 73 30 H 110/79 09/26/23 21:14 30 H 110/79 09/26/23 21:12 09/26/23 20:15 09/26/23 19:40 09/26/23 19:25 84 20 96/65 100 09/26/23 19:19 97.9 F 74 20 95/80 86 L FiO2 09/27/23 00:01 60 09/26/23 23:45 09/26/23 23:30 09/26/23 23:22 60 09/26/23 23:15 09/26/23 23:00 09/26/23 22:45 09/26/23 22:30 100 09/26/23 22:15 09/26/23 22:00 09/26/23 21:51 100 09/26/23 21:45 09/26/23 21:30 09/26/23 21:18 100 09/26/23 21:15 09/26/23 21:14 09/26/23 21:12 100 09/26/23 20:15 100 09/26/23 19:40 100 09/26/23 19:25 09/26/23 19:19 Intake and Output 09/26/23 09/26/23 09/27/23 14:59 22:59 06:59 Intake Total 660.311 141 Output Total 400 30 Balance 260.311 111 Intake: IV 650 75 Sodium Chloride 0.9% 150 75 1000ml @ 75ml/hr Intake, IV Titration 10.311 66 Amount propofoL 1,000 mg In Empty Bag 1 bag @ 15 MCG/ KG/MIN 14.85 mls/hr IV . Q6H45M [facility] Rx#:[id number] Output: Urine 400 30 Other: Weight 165 kg GENERAL EXAM: Currently, unresponsive on the mechanical ventilator, breathing slightly above set rate, no seizure-like activity noted HEAD: Normocephalic and atraumatic EYES: Pupils approximately 1 mm in diameter, sluggish to light, equal size. NOSE: Clear with pink turbinates. THROAT: No erythema or exudates. NECK: No masses, no JVD. CHEST: No chest wall deformity. LUNGS: Equal air entry with no crackles, wheeze, rhonchi or dullness. Intubated to the mechanical ventilator, breathing slightly above set rate, peak pressures 19, no significant endotracheal secretions noted. CVS: S1 and S2 normal with no audible murmur, regular rhythm. No extra heart sounds ABDOMEN: No hepatosplenomegaly, active bowel sounds, no guarding or rigidity. SPINE: No scoliosis or deformity SKIN: No rashes CENTRAL NERVOUS SYSTEM: No obvious focal deficits, no seizure-like activity noted, no myoclonic jerks, eyes are midline, no nystagmus or asymmetry, no gag reflex, extremities are flaccid and did not withdraw to painful stimuli, patellar DTRs 1+ bilaterally, Babinski is neutral EXTREMITIES: There is no peripheral edema, clubbing, or cyanosis. Peripheral pulses are intact. Results - Laboratory Findings CBC and BMP: 09/26/23 19:09/26/23 19:20 ABG ABG pH 7.37 (7.35-7.45) 09/26/23 21:55 ABG pCO2 46 mmHg (35-45) H 09/26/23 21:55 ABG pO2 100 mmHg (83-108) 09/26/23 21:55 ABG O2 Saturation 97.5 % (94-97) H 09/26/23 21:55 PT/INR, D-dimer PT 11.7 sec (10.0-12.5) 09/26/23 19:20 INR 1.1 (<1.2) 09/26/23 19:20 Abnormal lab findings: Abnormal Labs 09/26/23 09/26/23 09/26/23 19:20 19:20 19:29 WBC 18.9 H Neutrophils # 15.0 H ABG pCO2 ABG HCO3 ABG O2 Saturation Sodium 136 L Carbon Dioxide 21 L Glucose 230 H POC Glucose (mg/dL) Plasma Lactic Acid Chase AST 125 H ALT 73 H Troponin I 0.482 H* 09/26/23 09/26/23 09/26/23 21:14 21:46 21:46 WBC Neutrophils # ABG pCO2 ABG HCO3 ABG O2 Saturation Sodium Carbon Dioxide Glucose POC Glucose (mg/dL) 152 H Plasma Lactic Acid Chase 3.1 H* AST ALT Troponin I 0.848 H* 09/26/23 21:55 WBC Neutrophils # ABG pCO2 46 H ABG HCO3 26 H ABG O2 Saturation 97.5 H Sodium Carbon Dioxide Glucose POC Glucose (mg/dL) Plasma Lactic Acid Chase AST ALT Troponin I - Diagnostic Findings Chest x-ray: image reviewed Assessment and Plan Assessment: Out of hospital cardiac arrest and suspected ACS, estimated downtime prior to EMS arrival was approximately 10 minutes, did not perform any CPR. Rhythm noted as V. tach versus V-fib arrest per EMS. ROSC was ultimately achieved in the field, and patient was intubated on arrival to the emergency department, there were concerns for airway protection as the patient was unresponsive. After ROSC, concerns for some potential ST elevation in route by EMS. Patient was emergently taken to the [facility] on arrival, and received 1 stent to the mid LAD. Acute hypoxemic respiratory failure, secondary to above, intubated to the mechanical ventilator. Chest x-ray shows the endotracheal tube in satisfactory position. Nasogastric tube also noted. There is mild cardiomegaly and pulmon shun vascular congestion. No pneumothoraces, pleural effusions, or focal infiltrates appreciated. Coronary artery disease, heart catheterization noted 80% stenosis of the mid LAD, 30% stenosis of the left circumflex, and 50 to 60% stenosis of the RCA. Patient did receive PCI/stenting of the mid LAD. Leukocytosis, likely reactive to cardiac arrest Mild transaminitis, likely secondary to cardiac arrest and hypoperfusion Altered mental status, rule out anoxic brain injury History of hypertension History of obesity with a BMI of 48 kg/m History of former tobacco dependence History of gout History of BPH Plan: Patient's medications, labs, imaging were reviewed Patient did undergo PCI/stenting of the mid LAD late last night. Follow-up echocardiogram is pending for later this morning Patient was noted to be atrial flutter with slow ventricular response earlier, beta-alissa currently on hold. Statin also on hold secondary to elevated LFTs. Started on dual antiplatelet medications. For tonight, he will remain on the mechanical ventilator with current settings. May wean FiO2 as tolerated. Ventilator bundle ordered. Wean sedation for appropriate RASS of 0 to -1 He is currently unresponsive, will have to rule out anoxic brain injury Not currently requiring any vasopressors No further arrhythmias noted. Heparin for DVT prophylaxis. Protonix for GI prophylaxis. Add dietary consult for tube feedings. Patient's condition is currently critical but stable, prognosis is guarded. He will continue to be monitored in the intensive care unit. I have personally seen and examined the patient, performed the documentation and the assessment and plan as written. Number of minutes spent on the visit:20 Time with Patient: Greater than 30
[2023-09-27] MEDS: MORPHINE SULFATE 4 MG/ML SYRINGE IV PRN (03:50)
[2023-09-27 04:45] LABS: Basophils % (A) 0 %; Eosinophils % (A) 0 %; HCT 47.1 % (39.0-53.0); HGB 15.4 gm/dL (13.0-17.5); Lymphocytes # (A) 0.9 k/uL (1.0-4.8); Lymphocytes % (A) 4 %; MCH 29.9 pg (25.0-35.0); MCHC 32.7 g/dL (31.0-37.0); MCV 91.6 fL (80.0-100.0); Mean Platelet Volume 9.8; Monocytes # (A) 1.2 k/uL (0-1.0); Monocytes % (A) 5 %; Neutrophils % (A) 90 %; Platelet Count 245 k/uL (150-450); RBC 5.15 m/uL (4.30-5.90); RDW 13.7 % (11.5-15.5); WBC 22.3 k/uL (3.8-10.6)
[2023-09-27 05:10] LABS: ABG HCO3 26 mmol/L (21-25); ABG Oxygen Saturation 94.4 % (94-97); ABG PCO2 40 mmHg (35-45); ABG PH 7.42 (7.35-7.45); ABG PO2 70 mmHg (83-108); Allen Test Performed? Yes
[2023-09-27 05:13] LABS: ALT 76 U/L (4-49); AST 84 U/L (17-59); African American GFR (CKD) 74 (>60 ml/min/1.73 sqM); Albumin 3.6 g/dL (3.5-5.0); Alkaline Phosphatase 62 U/L (38-126); Anion Gap 6 mmol/L; Blood Urea Nitrogen 24 mg/dL (9-20); Calcium 8.6 mg/dL (8.4-10.2); Carbon Dioxide 23 mmol/L (22-30); Chloride 106 mmol/L (98-107); Glucose 162 mg/dL (74-99); Magnesium 1.6 mg/dL (1.6-2.3); Non-African American GFR(CKD) 64 (>60 ml/min/1.73 sqM); Phosphorus 3.4 mg/dL (2.5-4.5); Potassium 4.2 mmol/L (3.5-5.1); Sodium 135 mmol/L (137-145); Total Bilirubin 0.6 mg/dL (0.2-1.3); Total Protein 6.2 g/dL (6.3-8.2)
[2023-09-27] MEDS ORDERED: MAGNESIUM SULFATE-D5W PMX 1 GM in DEXTROSE/WATER 1 100ML.BAG IVPB ONE (05:57)
[2023-09-27] MEDS ORDERED: Magnesium Replacement Protocol 1 EACH MISC MISCELLANE PRN (05:57)
[2023-09-27] MEDS: MAGNESIUM SULFATE-D5W PMX 1 GM in DEXTROSE/WATER 1 100ML.BAG IVPB SCH (06:18)
[2023-09-27 06:30] LABS: Glucose,Whole Blood 169 mg/dL (70-110)
--- NOTE | 2023-09-27 08:06 | XR ---
EXAMINATION TYPE: XR chest 1V portable DATE OF EXAM: 09/27/2023 Comparison: 09/26/2023 Clinical History: 62-year-old male Tube placement Findings: ET and NG tubes are satisfactory. Heart mild to moderately enlarged. Retrocardiac and left basilar op acity is suspected left effusion. Mild interstitial density persists. Impression: Correlate for ongoing CHF and mild pulmonary vascular congestion. Small left effusion with retrocardi ac atelectasis and/or consolidation.
[2023-09-27] MEDS: ASPIRIN 81 MG PO SCH (08:13)
[2023-09-27] MEDS: TICAGRELOR 90 MG TAB PO SCH (08:13)
[2023-09-27] MEDS: PANTOPRAZOLE 40 MG/10 ML VIAL IV SCH (08:14)
[2023-09-27] MEDS ORDERED: CHLORHEXIDINE GLUCONATE 15 ML CUP MUCOUS MEM SCH (09:00)
--- NOTE | 2023-09-27 09:38 | P.PN ---
Subjective Progress Note Date: 09/27/23 The patient is a 62-year-old male who presented to the hospital after PEA arrest in his home. On arrival to the emergency room, EKG showed right bundle branch block with ST depression and therefore was taken to the [facility]. Coronary angiogram revealed 80% lesion in the mid LAD, 60 to 70% lesion in the distal LAD, 30% in the left circumflex, and 50% in the distal RCA. He underwent stenting of the mid LAD. Patient is currently intubated and sedated in the ICU. Echocardiogram is pending. GENERAL: Ill-appearing, well-nourished and in no acute distress. Sedated on ventilator NECK: Supple without JVD or thyromegaly. LUNGS: Breath sounds clear to auscultation bilaterally. Respiration equal and unlabored. No wheezes, rales or rhonchi. HEART: Regular rate and rhythm without murmurs, rubs or gallops. S1 and S2 heard. EXTREMITIES: Normal range of motion, no edema. No clubbing or cyanosis. Periphe ral pulses intact and strong. TELEMETRY: Sinus rhythm overnight. 1 brief run of nonsustained ventricular tachycardia LABS: WBC 22.3, hemoglobin 15.4, hematocrit 47.1, platelet 245, sodium 135, potassium 4.2, BUN 24, creatinine 1.21, AST 84, ALT 76 IMPRESSION: Cardiac arrest, PEA followed by ventricular tachycardia Non-ST elevated myocardial infarction Status post stenting to the LAD History of hypertension History of dyslipidemia Morbid obesity, BMI 48 PLAN: Continue supportive treatment Will start beta-blockers once extubated Awaiting echocardiogram report Further recommendations to be based upon clinical course I am dictating on behalf of Dr Brad Westfall's history/physical and assess ment/plan. Objective - Vital Signs Vital signs: Vital Signs Temp 98.2 F 09/27/23 08:01 Pulse 67 09/27/23 09:00 Resp 22 09/27/23 09:00 BP 93/57 09/27/23 08:01 Pulse Ox 97 09/27/23 09:00 FiO2 60 09/27/23 08:28 Intake & Output 09/26/23 09/27/23 09/27/23 18:59 06:59 18:59 Intake Total 1729.451 494.225 Output Total 725 115 Balance 1004.451 379.225 Weight 163.5 kg 166 kg Intake: IV 1268 334 Magnesium Sulfate-D5w Pmx 100 1 gm In Dextrose/Water 1 100ml.bag @ 100 mls/hr IVPB ONCE ONE Rx#: [id number] Pressure Bag 18 9 Sodium Chloride 0.9% 750 225 1000ml @ 75ml/hr Intake, IV Titration 461.451 160.225 Amount Magnesium Sulfate-D5w Pmx 100 1 gm In Dextrose/Water 1 100ml.bag @ 100 mls/hr IVPB Q1H [facility] Rx#: [id number] propofoL 1,000 mg In 361.451 160.225 Empty Bag 1 bag @ 15 MCG/ KG/MIN 14.85 mls/hr IV . Q6H45M [facility] Rx#:[id number] Output: Urine 725 115 Other: Voiding Method Indwelling Catheter Indwelling Catheter ABP, PAP, CO, CI - Last Documented Arterial Blood Pressure 105/65 - Labs CBC & Chem 7: 09/27/23 04:22 09/27/23 04:22 Labs: Abnormal Lab Results - Last 24 Hours (Table) 09/26/23 09/26/23 09/26/23 Range/Units 19:20 19:20 19:29 WBC 18.9 H (3.8-10.6) k/uL Neutrophils # 15.0 H (1.3-7.7) k/uL Lymphocytes # (1.0-4.8) k/uL Monocytes # (0-1.0) k/uL ABG pCO2 (35-45) mmHg ABG pO2 (83-108) mmHg ABG HCO3 (21-25) mmol/L ABG O2 Saturation (94-97) % Sodium 136 L (137-145) mmol/L Carbon Dioxide 21 L (22-30) mmol/L BUN (9-20) mg/dL Glucose 230 H (74-99) mg/dL POC Glucose (mg/dL) (70-110) mg/dL Hemoglobin A1c (<=6.0) % Plasma Lactic Acid Chase (0.7-2.0) mmol/L AST 125 H (17-59) U/L ALT 73 H (4-49) U/L Troponin I 0.482 H* (0.000-0.034) ng/mL Total Protein (6.3-8.2) g/dL 09/26/23 09/26/23 09/26/23 Range/Units 21:14 21:46 21:46 WBC (3.8-10.6) k/uL Neutrophils # (1.3-7.7) k/uL Lymphocytes # (1.0-4.8) k/uL Monocytes # (0-1.0) k/uL ABG pCO2 (35-45) mmHg ABG pO2 (83-108) mmHg ABG HCO3 (21-25) mmol/L ABG O2 Saturation (94-97) % Sodium (137-145) mmol/L Carbon Dioxide (22-30) mmol/L BUN (9-20) mg/dL Glucose (74-99) mg/dL POC Glucose (mg/dL) 152 H (70-110) mg/dL Hemoglobin A1c (<=6.0) % Plasma Lactic Acid Chase 3.1 H* (0.7-2.0) mmol/L AST (17-59) U/L ALT (4-49) U/L Troponin I 0.848 H* (0.000-0.034) ng/mL Total Protein (6.3-8.2) g/dL 09/26/23 09/26/23 09/27/23 Range/Units 21:46 21:55 00:19 WBC (3.8-10.6) k/uL Neutrophils # (1.3-7.7) k/uL Lymphocytes # (1.0-4.8) k/uL Monocytes # (0-1.0) k/uL ABG pCO2 46 H (35-45) mmHg ABG pO2 (83-108) mmHg ABG HCO3 26 H (21-25) mmol/L ABG O2 Saturation 97.5 H (94-97) % Sodium (137-145) mmol/L Carbon Dioxide (22-30) mmol/L BUN (9-20) mg/dL Glucose (74-99) mg/dL POC Glucose (mg/dL) (70-110) mg/dL Hemoglobin A1c 6.4 H (<=6.0) % Plasma Lactic Acid Chase (0.7-2.0) mmol/L AST (17-59) U/L ALT (4-49) U/L Troponin I 1.190 H* (0.000-0.034) ng/mL Total Protein (6.3-8.2) g/dL 09/27/23 09/27/23 09/27/23 Range/Units 01:00 04:22 04:22 WBC 22.3 H (3.8-10.6) k/uL Neutrophils # 20.0 H (1.3-7.7) k/uL Lymphocytes # 0.9 L (1.0-4.8) k/uL Monocytes # 1.2 H (0-1.0) k/uL ABG pCO2 (35-45) mmHg ABG pO2 (83-108) mmHg ABG HCO3 (21-25) mmol/L ABG O2 Saturation (94-97) % Sodium 135 L (137-145) mmol/L Carbon Dioxide (22-30) mmol/L BUN 24 H (9-20) mg/dL Glucose 162 H (74-99) mg/dL POC Glucose (mg/dL) (70-110) mg/dL Hemoglobin A1c (<=6.0) % Plasma Lactic Acid Chase 2.2 H* (0.7-2.0) mmol/L AST 84 H (17-59) U/L ALT 76 H (4-49) U/L Troponin I (0.000-0.034) ng/mL Total Protein 6.2 L (6.3-8.2) g/dL 09/27/23 09/27/23 Range/Units 05:10 06:28 WBC (3.8-10.6) k/uL Neutrophils # (1.3-7.7) k/uL Lymphocytes # (1.0-4.8) k/uL Monocytes # (0-1.0) k/uL ABG pCO2 (35-45) mmHg ABG pO2 70 L (83-108) mmHg ABG HCO3 26 H (21-25) mmol/L ABG O2 Saturation (94-97) % Sodium (137-145) mmol/L Carbon Dioxide (22-30) mmol/L BUN (9-20) mg/dL Glucose (74-99) mg/dL POC Glucose (mg/dL) 169 H (70-110) mg/dL Hemoglobin A1c (<=6.0) % Plasma Lactic Acid Chase (0.7-2.0) mmol/L AST (17-59) U/L ALT (4-49) U/L Troponin I (0.000-0.034) ng/mL Total Protein (6.3-8.2) g/dL
[2023-09-27] MEDS ORDERED: RX INFO: IV CONTRAST WAS GIVEN 1 EACH MISC MISCELLANE PRN (09:59)
[2023-09-27] MEDS: SODIUM CHLORIDE 0.9% 1,000 ML IV SCH (10:54)
[2023-09-27 11:27] VITALS: BMI 48.2
[2023-09-27] MEDS: INSULIN ASPART (NovoLOG) 100 UNIT/ML VIAL SQ SCH (12:15)
[2023-09-27 12:27] LABS: Glucose,Whole Blood 154 mg/dL (70-110)
[2023-09-27] MEDS ORDERED: DEXTROSE 50% SYRINGE 50 ML IVP PRN ×2 (12:27)
--- NOTE | 2023-09-27 13:11 | CT ---
EXAMINATION TYPE: CT brain wo con DATE OF EXAM: 09/27/2023 COMPARISON: INDICATION: cardiac arrest DLP: 1213.4 mGycm, Automated exposure control for dose reduction was used. CONTRAST: None CT of the brain is performed utilizing 3 mm thick sections through the posterior fossa and 3 mm thick sections through the remaining calvarium. Study is performed within 24 hours of arrival to the hosp ital. No abnormal hyperdensity is present to suggest an acute intracranial hemorrhage. No mass lesion is evident. No acute infarcts are evident. The ventricular white matter hypodensity is present, likely on the bas is of chronic white matter ischemic change. Ventricles and sulci are appropriate for the patient age. Prior surgery is evident with ethmoidectomy and uncinectomy. There is diffuse mucosal thickening with in ethmoid air cells and sphenoid sinuses contain fluid IMPRESSION: 1. Patchy periventricular white matter ischemic type changes. Follow-up MRI can be performed as cli nically indicated.
--- NOTE | 2023-09-27 16:54 | P.HPIM ---
History of Present Illness H&P Date: 09/27/23 Chief Complaint: cardiac arrest Patient is a 62-year-old male with a past medical history of hypertension, obesity, gout who came into the ER by EMS after getting ACLS protocol for cardiac arrest. was at bedside. states that patient was doing well in the day. He went out for a walk in the neighborhood. She states that later on in the day he was sitting on a chair and then went unresponsive. So she then called EMS. In the ED patient was found to have ST depressions on his EKG. Patient was intubated. Patient then had an emergent heart catheterization done and it showed 80% lesion in the mid LAD 60 to 70% lesion in the distal LAD, 30% in the left circumflex, and 50% in the distal RCA. He underwent stenting of the mid LAD. Patient was then admitted to the medicine service. ROS: Patient currently intubated and sedated so unable to obtain history Physical exam General: [Patient intubated and sedated]. Eye: [Pinpoint pupils, no scleral icterus]. HENT: [Normocephalic, clear tympanic membranes]. Neck: [Supple, non-tender, no carotid bruits, no JVD, no lymphadenopathy]. Lungs: [Diminished breath sounds bilaterally, ET tube in place]. Heart: [Normal rate, regular rhythm, no murmur, gallop or edema]. Abdomen: [Soft, non-tender, non-distended, normal bowel sounds, no masses, morbidly obese]. Neurologic: [Patient currently intubated and sedated so unable to assess]. Psychiatric: [Patient intubated and sedated so unable to assess]. Assessment and plan Cardiac arrest with PEA followed by ventricular tachycardia Non-ST elevation IA Status post stenting to the LAD Cardiology on board Echocardiogram pending Patient started on aspirin 81 mg daily, atorvastatin 80 mg p.o. at bedtime, Brilinta 90 mg p.o. twice daily Ventilatory dependent respiratory failure secondary cardiac arrest Will need to rule out anoxic brain injury Nutrition Instructor to manage the vent CT head is pending Leukocytosis Likely reactive Continue to monitor for signs or symptoms of infection Hypertension Currently patient is normotensive Hold lisinopril and amlodipine for now Per cardiology will start beta-alissa once off the ventilator Gout Resume allopurinol BPH Hold on on tamsulosin until blood pressure improves DVT prophylaxis: Subcu heparin Past Medical History Past Medical History: Hypertension Additional Past Medical History / Comment(s): POSS BPH, NOT EMPTYING BLADDER COMPLETELY, TRYING NEW RX. History of Any Multi-Drug Resistant Organisms: None Reported Past Surgical History: Orthopedic Surgery Additional Past Surgical History / Comment(s): CYST REMOVED RT WRIST. COLONOSCOPY. SINUS SX Past Anesthesia/Blood Transfusion Reactions: No Reported Reaction Past Psychological History: No Psychological Hx Reported Smoking Status: Never smoker Past Alcohol Use History: Occasional Past Drug Use History: None Reported - Past Family History Mother Family Medical History: No Reported History Medications and Allergies Home Medications Medication Instructions Recorded Confirmed Type amLODIPine BESYLATE [Amlodipine 10 mg PO DAILY 11/05/15 09/26/23 History Besylate] lisinopriL [Lisinopril] 40 mg PO DAILY 11/05/15 09/26/23 History Tamsulosin HCl [Flomax] 0.4 mg PO DAILY 02/15/16 09/26/23 History Indomethacin [Indocin] 50 mg PO TID PRN 09/26/23 09/26/23 History Tamsulosin [Flomax] 0.4 mg PO DAILY 09/26/23 09/26/23 History allopurinoL [Zyloprim] 300 mg PO BID 09/26/23 09/26/23 History Allergies Allergy/AdvReac Type Severity Reaction Status Date / Time No Known Allergies Allergy Verified 09/26/23 19:23 Physical Exam Osteopathic Statement: *. No significant issues noted on an osteopathic structural exam other than those noted in the History and Physical/Consult. Vitals: Vital Signs Temp Pulse Pulse Resp BP BP Pulse Ox 09/27/23 16:00 99.1 F 69 18 98 09/27/23 15:56 09/27/23 15:55 99.3 F 75 21 121/70 97 09/27/23 15:45 70 20 97 09/27/23 15:30 70 19 97 09/27/23 15:29 09/27/23 15:24 09/27/23 15:15 71 20 99 09/27/23 15:00 73 19 99 09/27/23 14:45 75 19 99 09/27/23 14:30 76 19 98 09/27/23 14:15 78 19 97 09/27/23 14:00 79 20 96 05/30/24 13:45 78 19 95 09/27/23 13:30 78 21 93 L 09/27/23 13:26 09/27/23 13:15 78 24 92 L 09/27/23 13:06 09/27/23 13:00 83 19 88 L 09/27/23 12:30 75 18 95 09/27/23 12:15 89 18 95 09/27/23 12:00 99.7 F H 89 27 H 95 09/27/23 11:45 86 29 H 94 L 09/27/23 11:42 09/27/23 11:30 83 25 H 95 09/27/23 11:15 71 22 97 09/27/23 11:00 71 24 103/73 97 09/27/23 10:45 69 23 103/73 97 09/27/23 10:30 70 23 103/73 95 09/27/23 10:15 70 22 103/73 96 09/27/23 10:01 09/27/23 10:00 71 22 103/73 97 09/27/23 09:45 71 20 103/73 98 09/27/23 09:30 69 23 103/73 98 09/27/23 09:15 68 23 103/73 98 09/27/23 09:00 67 22 97 09/27/23 08:45 68 22 96 09/27/23 08:30 68 22 95 09/27/23 08:19 09/27/23 08:15 65 22 95 09/27/23 08:01 98.2 F 65 24 93/57 95 09/27/23 08:00 98.2 F 75 22 95 09/27/23 07:54 09/27/23 07:45 65 23 95 09/27/23 07:30 65 23 95 09/27/23 07:15 66 22 95 09/27/23 07:00 67 24 103/73 95 09/27/23 06:45 69 23 103/73 94 L 09/27/23 06:30 71 24 103/73 95 09/27/23 06:15 72 21 95 09/27/23 06:00 72 24 97 09/27/23 05:45 73 23 97 09/27/23 05:30 75 23 97 09/27/23 05:19 09/27/23 05:15 76 23 103/73 95 09/27/23 05:00 78 23 103/73 93 L 09/27/23 04:45 77 24 103/73 94 L 09/27/23 04:30 78 24 93/69 94 L 09/27/23 04:15 82 31 H 93/69 96 09/27/23 04:00 83 27 H 93/69 95 09/27/23 03:45 82 28 H 93/69 94 L 09/27/23 03:30 84 28 H 93/69 95 09/27/23 03:23 09/27/23 03:15 98.6 F 79 27 H 93/69 94 L 09/27/23 03:00 78 27 H 93/69 95 09/27/23 02:45 75 26 H 93/69 95 09/27/23 02:30 71 27 H 93/69 98 09/27/23 02:15 71 26 H 93/69 98 09/27/23 02:00 67 27 H 93/69 98 09/27/23 01:45 63 25 H 93/69 98 09/27/23 01:30 64 25 H 93/69 98 09/27/23 01:15 64 26 H 93/69 97 09/27/23 01:00 64 27 H 93/69 96 09/27/23 00:45 64 21 93/68 96 09/27/23 00:30 64 26 H 95/70 95 09/27/23 00:15 62 25 H 94/70 95 09/27/23 00:01 09/27/23 00:00 59 L 25 H 93/69 95 09/26/23 23:51 63 24 93/69 94 L 09/26/23 23:45 62 26 H 99/72 94 L 09/26/23 23:30 63 18 93/70 94 L 09/26/23 23:22 09/26/23 23:15 61 25 H 92/62 99 09/26/23 23:00 63 23 85/61 99 09/26/23 22:45 63 19 87/62 99 09/26/23 22:30 98.5 F 68 63 18 83/53 110/79 99 09/26/23 22:15 66 26 H 68/41 99 09/26/23 22:00 66 18 92/62 99 09/26/23 21:51 98.5 F 66 26 H 09/26/23 21:45 76 18 94/63 99 09/26/23 21:30 75 32 H 114/80 99 09/26/23 21:18 09/26/23 21:15 73 30 H 110/79 09/26/23 21:14 30 H 110/79 09/26/23 21:12 09/26/23 19:40 09/26/23 19:25 84 20 96/65 100 09/26/23 19:19 97.9 F 74 20 95/80 86 L FiO2 09/27/23 16:00 50 09/27/23 15:56 50 09/27/23 15:55 50 09/27/23 15:45 09/27/23 15:30 09/27/23 15:29 50 09/27/23 15:24 70 09/27/23 15:15 09/27/23 15:00 09/27/23 14:45 09/27/23 14:30 09/27/23 14:15 09/27/23 14:00 09/27/23 13:45 09/27/23 13:30 70 09/27/23 13:26 70 09/27/23 13:15 09/27/23 13:06 50 09/27/23 13:00 09/27/23 12:30 09/27/23 12:15 09/27/23 12:00 50 09/27/23 11:45 09/27/23 11:42 50 09/27/23 11:30 09/27/23 11:15 09/27/23 11:00 09/27/23 10:45 09/27/23 10:30 09/27/23 10:15 09/27/23 10:01 50 09/27/23 10:00 50 09/27/23 09:45 09/27/23 09:30 50 09/27/23 09:15 09/27/23 09:00 09/27/23 08:45 09/27/23 08:30 09/27/23 08:19 60 09/27/23 08:15 09/27/23 08:01 60 09/27/23 08:00 09/27/23 07:54 60 09/27/23 07:45 09/27/23 07:30 09/27/23 07:15 09/27/23 07:00 09/27/23 06:45 09/27/23 06:30 09/27/23 06:15 09/27/23 06:00 09/27/23 05:45 09/27/23 05:30 09/27/23 05:19 80 09/27/23 05:15 09/27/23 05:00 09/27/23 04:45 09/27/23 04:30 09/27/23 04:15 09/27/23 04:00 60 09/27/23 03:45 09/27/23 03:30 09/27/23 03:23 60 09/27/23 03:15 60 09/27/23 03:00 09/27/23 02:45 09/27/23 02:30 09/27/23 02:15 09/27/23 02:00 09/27/23 01:45 09/27/23 01:30 09/27/23 01:15 09/27/23 01:00 09/27/23 00:45 09/27/23 00:30 09/27/23 00:15 09/27/23 00:01 60 09/27/23 00:00 100 09/26/23 23:51 09/26/23 23:45 09/26/23 23:30 09/26/23 23:22 60 09/26/23 23:15 09/26/23 23:00 09/26/23 22:45 09/26/23 22:30 100 09/26/23 22:15 09/26/23 22:00 09/26/23 21:51 100 09/26/23 21:45 09/26/23 21:30 09/26/23 21:18 100 09/26/23 21:15 09/26/23 21:14 09/26/23 21:12 100 09/26/23 19:40 100 09/26/23 19:25 09/26/23 19:19 Intake and Output 09/27/23 09/27/23 09/27/23 06:59 14:59 22:59 Intake Total 9162.671 3446.517 281 Output Total 325 355 120 Balance 744.140 786.517 161 Intake: IV 618 724 181 Magnesium Sulfate-D5w Pmx 100 1 gm In Dextrose/Water 1 100ml.bag @ 100 mls/hr IVPB ONCE ONE Rx#: [id number] Pressure Bag 18 24 6 Sodium Chloride 0.9% 1, 100 000 ml @ 100 mls/hr IV . Q10H [facility] Rx#:[id number] Sodium Chloride 0.9% 600 600 75 1000ml @ 75ml/hr Intake, IV Titration 451.140 337.517 100 Amount Magnesium Sulfate-D5w Pmx 100 1 gm In Dextrose/Water 1 100ml.bag @ 100 mls/hr IVPB Q1H [facility] Rx#: [id number] propofoL 1,000 mg In 351.140 337.517 100 Empty Bag 1 bag @ 15 MCG/ KG/MIN 14.85 mls/hr IV . Q6H45M [facility] Rx#:[id number] Oral 80 Output: Urine 325 355 120 Other: Voiding Method Indwelling Catheter Indwelling Catheter Indwelling Catheter Weight 163.5 kg 166 kg ABP, PAP, CO, CI - Last 8 Hours Arterial Blood Pressure 111/71 Arterial Blood Pressure 113/69 Arterial Blood Pressure 111/71 Arterial Blood Pressure 121/69 Arterial Blood Pressure 120/69 Arterial Blood Pressure 114/70 Arterial Blood Pressure 125/72 Arterial Blood Pressure 126/72 Arterial Blood Pressure 125/72 Arterial Blood Pressure 116/72 Arterial Blood Pressure 103/71 Arterial Blood Pressure 108/68 Arterial Blood Pressure 114/78 Arterial Blood Pressure 130/76 Arterial Blood Pressure 121/82 Arterial Blood Pressure 127/88 Arterial Blood Pressure 119/84 Arterial Blood Pressure 145/86 Arterial Blood Pressure 113/73 Arterial Blood Pressure 114/72 Arterial Blood Pressure 106/66 Arterial Blood Pressure 103/63 Arterial Blood Pressure 108/66 Arterial Blood Pressure 110/68 Arterial Blood Pressure 107/66 Arterial Blood Pressure 106/64 Arterial Blood Pressure 106/65 Arterial Blood Pressure 105/65 Results CBC & Chem 7: 09/27/23 04:22 09/27/23 04:22 Labs: Abnormal Lab Results - Last 24 Hours (Table) 09/26/23 09/26/23 09/26/23 Range/Units 19:20 19:20 19:29 WBC 18.9 H (3.8-10.6) k/uL Neutrophils # 15.0 H (1.3-7.7) k/uL Lymphocytes # (1.0-4.8) k/uL Monocytes # (0-1.0) k/uL ABG pCO2 (35-45) mmHg ABG pO2 (83-108) mmHg ABG HCO3 (21-25) mmol/L ABG O2 Saturation (94-97) % Sodium 136 L (137-145) mmol/L Carbon Dioxide 21 L (22-30) mmol/L BUN (9-20) mg/dL Glucose 230 H (74-99) mg/dL POC Glucose (mg/dL) (70-110) mg/dL Hemoglobin A1c (<=6.0) % Plasma Lactic Acid Chase (0.7-2.0) mmol/L AST 125 H (17-59) U/L ALT 73 H (4-49) U/L Troponin I 0.482 H* (0.000-0.034) ng/mL Total Protein (6.3-8.2) g/dL 09/26/23 09/26/23 09/26/23 Range/Units 21:14 21:46 21:46 WBC (3.8-10.6) k/uL Neutrophils # (1.3-7.7) k/uL Lymphocytes # (1.0-4.8) k/uL Monocytes # (0-1.0) k/uL ABG pCO2 (35-45) mmHg ABG pO2 (83-108) mmHg ABG HCO3 (21-25) mmol/L ABG O2 Saturation (94-97) % Sodium (137-145) mmol/L Carbon Dioxide (22-30) mmol/L BUN (9-20) mg/dL Glucose (74-99) mg/dL POC Glucose (mg/dL) 152 H (70-110) mg/dL Hemoglobin A1c (<=6.0) % Plasma Lactic Acid Chase 3.1 H* (0.7-2.0) mmol/L AST (17-59) U/L ALT (4-49) U/L Troponin I 0.848 H* (0.000-0.034) ng/mL Total Protein (6.3-8.2) g/dL 09/26/23 09/26/23 09/27/23 Range/Units 21:46 21:55 00:19 WBC (3.8-10.6) k/uL Neutrophils # (1.3-7.7) k/uL Lymphocytes # (1.0-4.8) k/uL Monocytes # (0-1.0) k/uL ABG pCO2 46 H (35-45) mmHg ABG pO2 (83-108) mmHg ABG HCO3 26 H (21-25) mmol/L ABG O2 Saturation 97.5 H (94-97) % Sodium (137-145) mmol/L Carbon Dioxide (22-30) mmol/L BUN (9-20) mg/dL Glucose (74-99) mg/dL POC Glucose (mg/dL) (70-110) mg/dL Hemoglobin A1c 6.4 H (<=6.0) % Plasma Lactic Acid Chase (0.7-2.0) mmol/L AST (17-59) U/L ALT (4-49) U/L Troponin I 1.190 H* (0.000-0.034) ng/mL Total Protein (6.3-8.2) g/dL 09/27/23 09/27/23 09/27/23 Range/Units 01:00 04:22 04:22 WBC 22.3 H (3.8-10.6) k/uL Neutrophils # 20.0 H (1.3-7.7) k/uL Lymphocytes # 0.9 L (1.0-4.8) k/uL Monocytes # 1.2 H (0-1.0) k/uL ABG pCO2 (35-45) mmHg ABG pO2 (83-108) mmHg ABG HCO3 (21-25) mmol/L ABG O2 Saturation (94-97) % Sodium 135 L (137-145) mmol/L Carbon Dioxide (22-30) mmol/L BUN 24 H (9-20) mg/dL Glucose 162 H (74-99) mg/dL POC Glucose (mg/dL) (70-110) mg/dL Hemoglobin A1c (<=6.0) % Plasma Lactic Acid Chase 2.2 H* (0.7-2.0) mmol/L AST 84 H (17-59) U/L ALT 76 H (4-49) U/L Troponin I (0.000-0.034) ng/mL Total Protein 6.2 L (6.3-8.2) g/dL 09/27/23 09/27/23 09/27/23 Range/Units 05:10 06:28 12:25 WBC (3.8-10.6) k/uL Neutrophils # (1.3-7.7) k/uL Lymphocytes # (1.0-4.8) k/uL Monocytes # (0-1.0) k/uL ABG pCO2 (35-45) mmHg ABG pO2 70 L (83-108) mmHg ABG HCO3 26 H (21-25) mmol/L ABG O2 Saturation (94-97) % Sodium (137-145) mmol/L Carbon Dioxide (22-30) mmol/L BUN (9-20) mg/dL Glucose (74-99) mg/dL POC Glucose (mg/dL) 169 H 154 H (70-110) mg/dL Hemoglobin A1c (<=6.0) % Plasma Lactic Acid Chase (0.7-2.0) mmol/L AST (17-59) U/L ALT (4-49) U/L Troponin I (0.000-0.034) ng/mL Total Protein (6.3-8.2) g/dL Microbiology - Last 24 Hours (Table) 09/27/23 03:25 Gram Stain - Preliminary Sputum Thrombosis Risk Factor Assmnt - Choose All That Apply Each Factor Represents 1 point: Acute IA, Obesity (BMI >25) Each Risk Factor Represents 2 Points: Age 61-74 years Thrombosis Risk Factor Assessment Total Risk Factor Score: 4 Thrombosis Risk Factor Assessment Level: Moderate Risk
[2023-09-27 17:55] LABS: Glucose,Whole Blood 114 mg/dL (70-110)
--- NOTE | 2023-09-27 18:35 | P.CNNES ---
History of Present Illness Consult date: 09/27/23 Requesting physician: Jacqueline Arcos Reason for Consult: Abnormal CT History of Present Illness: Patient is a 62-year-old male with history of hypertension, gout, was brought to the hospital by ambulance yesterday at 7:17 PM for cardiac arrest. Patient's mentions that he was sitting in the easy chair, doing some word puzzle, talking to his , when he suddenly started gurgling and his head went backwards. She thought that he was choking, but he was not eating. He became unresponsive. She called 911 immediately. The Police Department came earlier and helped him get down onto the floor. The Police Department started some chest compressions, which was continued when the EMS arrived. As per EMS flowsheet they were dispatched at 6:28 PM and arrived at the scene at 6:41 PM. As per EMS flowsheet, patient was in cardiac arrest. CPR began at 6:34 PM. AED and shock was delivered at 6:36 PM and patient remained pulseless and CPR was continued. At 6:37 PM another shock was delivered via AED and patient remained pulseless. Patient had agonal respiration. Patient's mentioned that patient had no prior cardiac history and had a normal physical 2 days prior. She mentioned that patient was walking through his house and he began "gurgling" and collapsed to the floor. No signs of trauma was noted. Skin was pink warm and cyanotic. At 6:50 PM, the rhythm was converted to V. tach and a shock was delivered at 6:51 PM at 120 J and patient remained in V. tach without a pulse and CPR was continued. At 6:54 PM, 150 mg amiodarone was given and another 150 mg of amiodarone was being drawn up and the patient converted to idioventricular rhythm and the carotid and radial pulses are palpa ble. Blood test shows WBC 18.9 hemoglobin 15.8 normal platelets, PT PTT. Sodium 136 potassium 4.3, normal renal function. Lactate was 3.1. A1c 6.4. Troponins elevated. AST 125 ALT 73. Repeat WBC count is 22.3. CT head revealed patchy periventricular white matter ischemic type changes. Follow-up MRI can be performed as clinically indicated. I personally reviewed CT head and agree with evidence of some patchy white matter abnormalities bilaterally in subcortical white matter EKG shows sinus rhythm with first-degree AV block. Chest x-ray revealed ongoing CHF and mild pulmonary vascular congestion. Small left effusion with retrocardiac atelectasis and/or consolidation. Patient was taken to cardiac cath, underwent stenting at the LAD. At present patient is on propofol 50 mcg/kg/min. He is comatose. Nonresponsive. Per nursing report, when the sedation was decreased to 20 mcg/kg/min, he had a weak gag and cough. Still no response to commands. Patient is a non-smoker, denies diabetes. He has hypertension and gout. Patient's mother and father both of [place]. Patient does take aspirin every day. Patient's mentions that he is cognitively perfectly intact otherwise. Patient does not use any assistive device at home. Review of Systems As per report from patient's . Constitutional: Reports weight loss (Intentional. Lost 30 pounds.), Denies chills, Denies fever Eyes: denies blurred vision, denies decreased vision, denies pain, denies loss of peripheral vision Ears: deny: decreased hearing, ear discharge Ears, nose, mouth and throat: Denies headache, Denies sore throat, Denies vertigo Cardiovascular: Denies chest pain, Denies lightheadedness, Denies shortness of breath Respiratory: Denies cough, Denies excessive sputum Gastrointestinal: Denies abdominal pain, Denies diarrhea, Denies nausea, Denies vomiting Musculoskeletal: Reports low back pain, Denies neck pain Integumentary: Denies pruritus, Denies rash Neurological: Reports as per HPI Psychiatric: Denies anxiety, Denies depression Hematologic/Lymphatic: Denies easy bleeding, Denies easy bruising Past Medical History Past Medical History: Hypertension Additional Past Medical History / Comment(s): POSS BPH, NOT EMPTYING BLADDER COMPLETELY, TRYING NEW RX. History of Any Multi-Drug Resistant Organisms: None Reported Past Surgical History: Orthopedic Surgery Additional Past Surgical History / Comment(s): CYST REMOVED RT WRIST. COLONOSCOPY. SINUS SX Past Anesthesia/Blood Transfusion Reactions: No Reported Reaction Past Psychological History: No Psychological Hx Reported Smoking Status: Never smoker Past Alcohol Use History: Occasional Past Drug Use History: None Reported - Past Family History Mother Family Medical History: No Reported History Medications and Allergies Home Medications Medication Instructions Recorded Confirmed Type amLODIPine BESYLATE [Amlodipine 10 mg PO DAILY 11/05/15 09/26/23 History Besylate] lisinopriL [Lisinopril] 40 mg PO DAILY 11/05/15 09/26/23 History Tamsulosin HCl [Flomax] 0.4 mg PO DAILY 02/15/16 09/26/23 History Indomethacin [Indocin] 50 mg PO TID PRN 09/26/23 09/26/23 History Tamsulosin [Flomax] 0.4 mg PO DAILY 09/26/23 09/26/23 History allopurinoL [Zyloprim] 300 mg PO BID 09/26/23 09/26/23 History Allergies Allergy/AdvReac Type Severity Reaction Status Date / Time No Known Allergies Allergy Verified 09/26/23 19:23 Physical Examination - Vital Signs Vital Signs: Vital Signs Temp Pulse Pulse Resp BP BP Pulse Ox 09/27/23 17:00 66 18 98 09/27/23 16:45 67 18 98 09/27/23 16:30 67 18 98 09/27/23 16:15 68 18 98 09/27/23 16:00 99.1 F 69 18 98 09/27/23 15:56 09/27/23 15:55 99.3 F 75 21 121/70 97 09/27/23 15:45 70 20 97 09/27/23 15:30 70 19 97 09/27/23 15:29 09/27/23 15:24 09/27/23 15:15 71 20 99 09/27/23 15:00 73 19 99 09/27/23 14:45 75 19 99 09/27/23 14:30 76 19 98 09/27/23 14:15 78 19 97 09/27/23 14:00 79 20 96 09/27/23 13:45 78 19 95 09/27/23 13:30 78 21 93 L 09/27/23 13:26 09/27/23 13:15 78 24 92 L 09/27/23 13:06 09/27/23 13:00 83 19 88 L 09/27/23 12:30 75 18 95 09/27/23 12:15 89 18 95 09/27/23 12:00 99.7 F H 89 27 H 95 09/27/23 11:45 86 29 H 94 L 09/27/23 11:42 09/27/23 11:30 83 25 H 95 09/27/23 11:15 71 22 97 09/27/23 11:00 71 24 103/73 97 09/27/23 10:45 69 23 103/73 97 09/27/23 10:30 70 23 103/73 95 09/27/23 10:15 70 22 103/73 96 09/27/23 10:01 09/27/23 10:00 71 22 103/73 97 09/27/23 09:45 71 20 103/73 98 09/27/23 09:30 69 23 103/73 98 09/27/23 09:15 68 23 103/73 98 09/27/23 09:00 67 22 97 09/27/23 08:45 68 22 96 09/27/23 08:30 68 22 95 09/27/23 08:19 09/27/23 08:15 65 22 95 09/27/23 08:01 98.2 F 65 24 93/57 95 09/27/23 08:00 98.2 F 75 22 95 09/27/23 07:54 09/27/23 07:45 65 23 95 09/27/23 07:30 65 23 95 09/27/23 07:15 66 22 95 09/27/23 07:00 67 24 103/73 95 09/27/23 06:45 69 23 103/73 94 L 09/27/23 06:30 71 24 103/73 95 09/27/23 06:15 72 21 95 09/27/23 06:00 72 24 97 09/27/23 05:45 73 23 97 09/27/23 05:30 75 23 97 09/27/23 05:19 09/27/23 05:15 76 23 103/73 95 09/27/23 05:00 78 23 103/73 93 L 09/27/23 04:45 77 24 103/73 94 L 09/27/23 04:30 78 24 93/69 94 L 09/27/23 04:15 82 31 H 93/69 96 09/27/23 04:00 83 27 H 93/69 95 09/27/23 03:45 82 28 H 93/69 94 L 09/27/23 03:30 84 28 H 93/69 95 09/27/23 03:23 09/27/23 03:15 98.6 F 79 27 H 93/69 94 L 09/27/23 03:00 78 27 H 93/69 95 09/27/23 02:45 75 26 H 93/69 95 09/27/23 02:30 71 27 H 93/69 98 09/27/23 02:15 71 26 H 93/69 98 09/27/23 02:00 67 27 H 93/69 98 09/27/23 01:45 63 25 H 93/69 98 09/27/23 01:30 64 25 H 93/69 98 09/27/23 01:15 64 26 H 93/69 97 09/27/23 01:00 64 27 H 93/69 96 09/27/23 00:45 64 21 93/68 96 09/27/23 00:30 64 26 H 95/70 95 09/27/23 00:15 62 25 H 94/70 95 09/27/23 00:01 09/27/23 00:00 59 L 25 H 93/69 95 09/26/23 23:51 63 24 93/69 94 L 09/26/23 23:45 62 26 H 99/72 94 L 09/26/23 23:30 63 18 93/70 94 L 09/26/23 23:22 09/26/23 23:15 61 25 H 92/62 99 09/26/23 23:00 63 23 85/61 99 09/26/23 22:45 63 19 87/62 99 09/26/23 22:30 98.5 F 68 63 18 83/53 110/79 99 09/26/23 22:15 66 26 H 68/41 99 09/26/23 22:00 66 18 92/62 99 09/26/23 21:51 98.5 F 66 26 H 09/26/23 21:45 76 18 94/63 99 09/26/23 21:30 75 32 H 114/80 99 09/26/23 21:18 09/26/23 21:15 73 30 H 110/79 09/26/23 21:14 30 H 110/79 09/26/23 21:12 09/26/23 19:40 09/26/23 19:25 84 20 96/65 100 09/26/23 19:19 97.9 F 74 20 95/80 86 L FiO2 09/27/23 17:00 09/27/23 16:45 09/27/23 16:30 09/27/23 16:15 09/27/23 16:00 50 09/27/23 15:56 50 09/27/23 15:55 50 09/27/23 15:45 09/27/23 15:30 09/27/23 15:29 50 09/27/23 15:24 70 09/27/23 15:15 09/27/23 15:00 09/27/23 14:45 09/27/23 14:30 09/27/23 14:15 09/27/23 14:00 09/27/23 13:45 09/27/23 13:30 70 09/27/23 13:26 70 09/27/23 13:15 09/27/23 13:06 50 09/27/23 13:00 09/27/23 12:30 09/27/23 12:15 09/27/23 12:00 50 09/27/23 11:45 09/27/23 11:42 50 09/27/23 11:30 09/27/23 11:15 09/27/23 11:00 09/27/23 10:45 09/27/23 10:30 09/27/23 10:15 09/27/23 10:01 50 09/27/23 10:00 50 09/27/23 09:45 09/27/23 09:30 50 09/27/23 09:15 09/27/23 09:00 09/27/23 08:45 09/27/23 08:30 09/27/23 08:19 60 09/27/23 08:15 09/27/23 08:01 60 09/27/23 08:00 09/27/23 07:54 60 09/27/23 07:45 09/27/23 07:30 09/27/23 07:15 09/27/23 07:00 09/27/23 06:45 09/27/23 06:30 09/27/23 06:15 09/27/23 06:00 09/27/23 05:45 09/27/23 05:30 09/27/23 05:19 80 09/27/23 05:15 09/27/23 05:00 09/27/23 04:45 09/27/23 04:30 09/27/23 04:15 09/27/23 04:00 60 09/27/23 03:45 09/27/23 03:30 09/27/23 03:23 60 09/27/23 03:15 60 09/27/23 03:00 09/27/23 02:45 09/27/23 02:30 09/27/23 02:15 09/27/23 02:00 09/27/23 01:45 09/27/23 01:30 09/27/23 01:15 09/27/23 01:00 09/27/23 00:45 09/27/23 00:30 09/27/23 00:15 09/27/23 00:01 60 09/27/23 00:00 100 09/26/23 23:51 09/26/23 23:45 09/26/23 23:30 09/26/23 23:22 60 09/26/23 23:15 09/26/23 23:00 09/26/23 22:45 09/26/23 22:30 100 09/26/23 22:15 09/26/23 22:00 09/26/23 21:51 100 09/26/23 21:45 09/26/23 21:30 09/26/23 21:18 100 09/26/23 21:15 09/26/23 21:14 09/26/23 21:12 100 09/26/23 19:40 100 09/26/23 19:25 09/26/23 19:19 Intake and Output 09/27/23 09/27/23 09/27/23 06:59 14:59 22:59 Intake Total 7548.128 0957.517 384 Output Total 325 355 165 Balance 744.140 786.517 219 Intake: IV 618 724 284 Magnesium Sulfate-D5w Pmx 100 1 gm In Dextrose/Water 1 100ml.bag @ 100 mls/hr IVPB ONCE ONE Rx#: [id number] Pressure Bag 18 24 9 Sodium Chloride 0.9% 1, 200 000 ml @ 100 mls/hr IV . Q10H [facility] Rx#:[id number] Sodium Chloride 0.9% 600 600 75 1000ml @ 75ml/hr Intake, IV Titration 451.140 337.517 100 Amount Magnesium Sulfate-D5w Pmx 100 1 gm In Dextrose/Water 1 100ml.bag @ 100 mls/hr IVPB Q1H [facility] Rx#: [id number] propofoL 1,000 mg In 351.140 337.517 100 Empty Bag 1 bag @ 15 MCG/ KG/MIN 14.85 mls/hr IV . Q6H45M [facility] Rx#:[id number] Oral 80 Output: Urine 325 355 165 Other: Voiding Method Indwelling Catheter Indwelling Catheter Indwelling Catheter Weight 163.5 kg 166 kg ABP, PAP, CO, CI - Last 8 Hours Arterial Blood Pressure 103/67 Arterial Blood Pressure 110/70 Arterial Blood Pressure 99/68 Arterial Blood Pressure 112/73 Arterial Blood Pressure 111/71 Arterial Blood Pressure 113/69 Arterial Blood Pressure 111/71 Arterial Blood Pressure 121/69 Arterial Blood Pressure 120/69 Arterial Blood Pressure 114/70 Arterial Blood Pressure 125/72 Arterial Blood Pressure 126/72 Arterial Blood Pressure 125/72 Arterial Blood Pressure 116/72 Arterial Blood Pressure 103/71 Arterial Blood Pressure 108/68 Arterial Blood Pressure 114/78 Arterial Blood Pressure 130/76 Arterial Blood Pressure 121/82 Arterial Blood Pressure 127/88 Arterial Blood Pressure 119/84 Arterial Blood Pressure 145/86 Arterial Blood Pressure 113/73 Arterial Blood Pressure 114/72 Arterial Blood Pressure 106/66 Arterial Blood Pressure 103/63 Arterial Blood Pressure 108/66 Arterial Blood Pressure 110/68 Patient is an elderly male, appears slightly older than his stated age. No obvious seizure-like activity noted. Patient is intubated, sedated with propofol 50 mcg/kg/min. Patient is comatose with GCS of 3. On cranial nerve examination, pupils are equal, about 2 to 3 mm, round and nonreactive to light. Oculocephalics are absent. Corneals are absent. Patient does not have any gag or cough. Per nursing report, when the sedation was decreased to propofol 20 mcg/kg/min, he had a very weak gag and cough. He is slightly breathing over the ventilator. Other cranial nerves cannot be assessed. On muscle strength testing, patient is not following any directions. Tone is equal bilaterally. Deep tendon reflexes absent all over and plantars are flat. Sensory to touch is no response. No response to painful stimuli either. Cerebellar function cannot be tested. Gait cannot be tested. On general examination, there is no carotid bruit or murmur, S1-S2 audible. Chest is clear on consultation. Abdomen is soft nontender. No organomegaly, bowel sounds present. Peripheral edema. Results - Laboratory Findings CBC and BMP: 09/27/23 04:22 09/27/23 04:22 Abnormal Lab Findings: Abnormal Labs 09/26/23 09/26/23 09/26/23 19:20 19:20 19:29 WBC 18.9 H Neutrophils # 15.0 H Lymphocytes # Monocytes # ABG pCO2 ABG pO2 ABG HCO3 ABG O2 Saturation Sodium 136 L Carbon Dioxide 21 L BUN Glucose 230 H POC Glucose (mg/dL) Hemoglobin A1c Plasma Lactic Acid Chase AST 125 H ALT 73 H Troponin I 0.482 H* Total Protein 09/26/23 09/26/23 09/26/23 21:14 21:46 21:46 WBC Neutrophils # Lymphocytes # Monocytes # ABG pCO2 ABG pO2 ABG HCO3 ABG O2 Saturation Sodium Carbon Dioxide BUN Glucose POC Glucose (mg/dL) 152 H Hemoglobin A1c Plasma Lactic Acid Chase 3.1 H* AST ALT Troponin I 0.848 H* Total Protein 09/26/23 09/26/23 09/27/23 21:46 21:55 00:19 WBC Neutrophils # Lymphocytes # Monocytes # ABG pCO2 46 H ABG pO2 ABG HCO3 26 H ABG O2 Saturation 97.5 H Sodium Carbon Dioxide BUN Glucose POC Glucose (mg/dL) Hemoglobin A1c 6.4 H Plasma Lactic Acid Chase AST ALT Troponin I 1.190 H* Total Protein 09/27/23 09/27/23 09/27/23 01:00 04:22 04:22 WBC 22.3 H Neutrophils # 20.0 H Lymphocytes # 0.9 L Monocytes # 1.2 H ABG pCO2 ABG pO2 ABG HCO3 ABG O2 Saturation Sodium 135 L Carbon Dioxide BUN 24 H Glucose 162 H POC Glucose (mg/dL) Hemoglobin A1c Plasma Lactic Acid Chase 2.2 H* AST 84 H ALT 76 H Troponin I Total Protein 6.2 L 09/27/23 09/27/23 09/27/23 05:10 06:28 12:25 WBC Neutrophils # Lymphocytes # Monocytes # ABG pCO2 ABG pO2 70 L ABG HCO3 26 H ABG O2 Saturation Sodium Carbon Dioxide BUN Glucose POC Glucose (mg/dL) 169 H 154 H Hemoglobin A1c Plasma Lactic Acid Chase AST ALT Troponin I Total Protein Assessment and Plan Assessment: * Cardiac arrest (PEA followed by V. tach) with prolonged downtime. As per review of electronic records and EMS flowsheet, it appears downtime was at least 25 minutes. * Patient comatose, probable anoxic encephalopathy. * Acute non-ST elevated AR, status post stenting to the LAD. * Ventilator dependent respiratory failure, on mechanical ventilation. * Hypertension * Gout * Morbid obesity Plan: * CT head was performed. It revealed patchy periventricular white matter ischemic type changes. Follow-up MRI can be performed as clinically indicated. I personally reviewed CT head, agree with the findings. There is suspicious patchy periventricular white matter, which could be from small vessel disease, although may be related to cardiac arrest/anoxic encephalopathy. We will repeat CT head in 48 hours to evaluate for any change. * Check EEG in the morning. * Other medical management as per IM and other specialties on board. * We will follow clinically. Discussed with patient's and the nursing staff in detail. * Thank you for the consult.
[2023-09-27] MEDS: METOPROLOL TARTRATE 12.5 MG TAB PO SCH (21:15)
[2023-09-27] MEDS: allopurinoL 300 MG TAB PO SCH (21:15)
[2023-09-27 23:45] LABS: Glucose,Whole Blood 125 mg/dL (70-110)
[2023-09-28 04:45] LABS: Basophils # (A) 0.1 k/uL (0-0.2); Basophils % (A) 0 %; Eosinophils # (A) 0.1 k/uL (0-0.7); Eosinophils % (A) 1 %; HCT 42.7 % (39.0-53.0); HGB 13.7 gm/dL (13.0-17.5); Lymphocytes # (A) 1.4 k/uL (1.0-4.8); Lymphocytes % (A) 8 %; MCH 30.1 pg (25.0-35.0); MCHC 32.1 g/dL (31.0-37.0); MCV 93.8 fL (80.0-100.0); Monocytes # (A) 0.7 k/uL (0-1.0); Monocytes % (A) 4 %; Neutrophils # (A) 14.3 k/uL (1.3-7.7); Neutrophils % (A) 86 %; Platelet Count 201 k/uL (150-450); RBC 4.55 m/uL (4.30-5.90); RDW 13.6 % (11.5-15.5); WBC 16.7 k/uL (3.8-10.6)
[2023-09-28 04:57] LABS: African American GFR (CKD) 59 (>60 ml/min/1.73 sqM); Anion Gap 4 mmol/L; Blood Urea Nitrogen 26 mg/dL (9-20); Calcium 8.1 mg/dL (8.4-10.2); Carbon Dioxide 22 mmol/L (22-30); Chloride 109 mmol/L (98-107); Glucose 147 mg/dL (74-99); Magnesium 2.1 mg/dL (1.6-2.3); Non-African American GFR(CKD) 51 (>60 ml/min/1.73 sqM); Sodium 135 mmol/L (137-145)
[2023-09-28 05:21] LABS: ABG Base Excess -0.9 mmol/L; ABG HCO3 24 mmol/L (21-25); ABG Oxygen Saturation 96.7 % (94-97); ABG PCO2 38 mmHg (35-45); ABG PH 7.41 (7.35-7.45); ABG PO2 82 mmHg (83-108); Allen Test Performed? Yes
[2023-09-28 05:34] LABS: Glucose,Whole Blood 147 mg/dL (70-110)
--- NOTE | 2023-09-28 08:02 | XR ---
EXAMINATION TYPE: XR chest 1V portable DATE OF EXAM: 09/28/2023 COMPARISON: 09/27/2023 INDICATION: Tube placement TECHNIQUE: Single frontal view of the chest is obtained. FINDINGS: The heart size is enlarged. The pulmonary vasculature is normal. Mild left lower lobe infiltrate may be present. Correlate for atelectasis. Small effusion may be pres ent Endotracheal tube tip in the laryngeal region. This is 12 cm above the diamante. Should be advanced 10 cm. Nasogastric tube is present, tip appears to be within the abdomen. Report was called to the ICU a t the time of final interpretation. IMPRESSION: 1. Endotracheal tube tip within the proximal airway and should be advanced. 2. Mild left lower lobe infiltrate with small left pleural effusion.
--- NOTE | 2023-09-28 09:30 | P.PN ---
Subjective Progress Note Date: 09/28/23 The patient is a 62-year-old male who presented to the hospital after PEA arrest in his home. On arrival to the emergency room, EKG showed right bundle branch block with ST depression and therefore was taken to the [facility]. Coronary angiogram revealed 80% lesion in the mid LAD, 60 to 70% lesion in the distal LAD, 30% in the left circumflex, and 50% in the distal RCA. He underwent stenting of the mid LAD. Over the last 24 hours he has been difficult to arouse and follow commands in order to be extubated. Neurology has been consulted with suspicious patchy periventricular white matter changes on CT scan of the brain, which is suspicious for anoxic encephalopathy. The patient is currently underg oing EEG. Patient is currently intubated and sedated in the ICU. GENERAL: Ill-appearing, well-nourished and in no acute distress. Sedated on ventilator NECK: Supple without JVD or thyromegaly. LUNGS: Breath sounds clear to auscultation bilaterally. Respiration equal and unlabored. No wheezes, rales or rhonchi. HEART: Regular rate and rhythm without murmurs, rubs or gallops. S1 and S2 heard. EXTREMITIES: Normal range of motion, no edema. No clubbing or cyanosis. Peripheral pulses intact and strong. TELEMETRY: Sinus rhythm overnight. No additional episodes of nonsustained ventricular tac hycardia. IMPRESSION: Cardiac arrest, PEA followed by ventricular tachycardia Non-ST elevated myocardial infarction Status post stenting to the LAD History of hypertension History of dyslipidemia Morbid obesity, BMI 48 PLAN: Continue supportive treatment Increase beta-alissa and start low-dose FREEDOM inhibitor Awaiting echocardiogram report Further recommendations to be based upon clinical course I am dictating on behalf of Dr Brad Westfall's history/physical and assessment/plan. Objective - Vital Signs Vital signs: Vital Signs Temp 100.2 F H 09/28/23 04:00 Pulse 77 09/28/23 07:00 Resp 25 H 09/28/23 07:00 BP 103/73 09/28/23 07:00 Pulse Ox 96 09/28/23 07:00 FiO2 50 09/28/23 04:00 Intake & Output 09/27/23 09/28/23 09/28/23 18:59 06:59 18:59 Intake Total 3471.480 7105 330.35 Output Total 570 525 50 Balance 1301.081 5403 280.35 Weight 166 kg 166 kg Intake: IV 1108 1236 103 Magnesium Sulfate-D5w Pmx 100 1 gm In Dextrose/Water 1 100ml.bag @ 100 mls/hr IVPB ONCE ONE Rx#: [id number] Pressure Bag 33 36 3 Sodium Chloride 0.9% 1, 300 1200 100 000 ml @ 100 mls/hr IV . Q10H [facility] Rx#:[id number] Sodium Chloride 0.9% 675 1000ml @ 75ml/hr Intake, IV Titration 537.517 300 197.35 Amount propofoL 1,000 mg In 537.517 300 197.35 Empty Bag 1 bag @ 15 MCG/ KG/MIN 14.85 mls/hr IV . Q6H45M [facility] Rx#:[id number] Oral 80 Tube Feeding 50 280 30 Other 30 90 Output: Urine 570 525 50 Other: Voiding Method Indwelling Catheter Indwelling Catheter ABP, PAP, CO, CI - Last Documented Arterial Blood Pressure 152/81 - Labs CBC & Chem 7: 09/28/23 03:35 09/28/23 03:35 Labs: Abnormal Lab Results - Last 24 Hours (Table) 09/27/23 09/27/23 09/27/23 Range/Units 12:25 17:54 23:44 WBC (3.8-10.6) k/uL Neutrophils # (1.3-7.7) k/uL ABG pO2 (83-108) mmHg Sodium (137-145) mmol/L Chloride (98-107) mmol/L BUN (9-20) mg/dL Creatinine (0.66-1.25) mg/dL Glucose (74-99) mg/dL POC Glucose (mg/dL) 154 H 114 H 125 H (70-110) mg/dL Calcium (8.4-10.2) mg/dL 09/28/23 09/28/23 09/28/23 Range/Units 03:35 03:35 05:20 WBC 16.7 H (3.8-10.6) k/uL Neutrophils # 14.3 H (1.3-7.7) k/uL ABG pO2 82 L (83-108) mmHg Sodium 135 L (137-145) mmol/L Chloride 109 H (98-107) mmol/L BUN 26 H (9-20) mg/dL Creatinine 1.45 H (0.66-1.25) mg/dL Glucose 147 H (74-99) mg/dL POC Glucose (mg/dL) (70-110) mg/dL Calcium 8.1 L (8.4-10.2) mg/dL 09/28/23 Range/Units 05:32 WBC (3.8-10.6) k/uL Neutrophils # (1.3-7.7) k/uL ABG pO2 (83-108) mmHg Sodium (137-145) mmol/L Chloride (98-107) mmol/L BUN (9-20) mg/dL Creatinine (0.66-1.25) mg/dL Glucose (74-99) mg/dL POC Glucose (mg/dL) 147 H (70-110) mg/dL Calcium (8.4-10.2) mg/dL Microbiology - Last 24 Hours (Table) 09/27/23 03:25 Gram Stain - Preliminary Sputum
--- NOTE | 2023-09-28 10:30 | XR ---
EXAMINATION TYPE: XR chest 1V portable DATE OF EXAM: 09/28/2023 COMPARISON: 09/28/2023 INDICATION: ET tube adjustment TECHNIQUE: Single frontal view of the chest is obtained. FINDINGS: The heart size is enlarged. The pulmonary vasculature is normal. Some minimal atelectasis may be at the right base. Left lower lobe infiltrate may be similar to prior study. Endotracheal tube is been advanced. The tip is currently 9.5 cm above the diamante. This could be advan marquis approximately 5 cm for better positioning. Nasogastric tube is present, distal tip cannot be iden tified due to the degree of penetration IMPRESSION: 1. Bibasilar infiltrates, increasing right base from earlier exam likely atelectasis. 2. Endotracheal tube advanced with tip currently 9.5 cm above the diamante. Consider advancing 5 cm.
--- NOTE | 2023-09-28 10:32 | CA ---
Transthoracic Echo Report Name: Juan Woodall Age: 62 Gender: M : 1960 Exam Date: 09/27/2023 08:54 Exam Location: [facility] Ht (in): 73 Wt (lb): 350 Ordering Physician: Armando Carlson DO ([email or web address]) Attending/Referring Phys: Athletics Director Lucinda Tom, AGUSTÍN Procedure CPT: Indications: re: CAD, cardiac arrest Cardiac Hx: Technical Quality: Very technically difficult study Contrast 1: Definity Total Dose (mL): 2 Contrast 2: Total Dose (mL): MEASUREMENTS (Male / Female) Normal Values 2D ECHO LV Diastolic Diameter PLAX 4.9 cm 4.2 - 5.9 / 3.9 - 5.3 cm LV Systolic Diameter PLAX 3.4 cm IVS Diastolic Thickness 2.1 cm 0.6 - 1.0 / 0.6 - 0.9 cm LVPW Diastolic Thickness 1.5 cm 0.6 - 1.0 / 0.6 - 0.9 cm LV Relative Wall Thickness 0.7 RV Internal Dim ED PLAX 3.6 cm M-MODE Aortic Root Diameter MM 3.8 cm LA Systolic Diameter MM 5.2 cm LA Ao Ratio MM 1.4 AV Cusp Separation MM 2.3 cm FINDINGS Left Ventricle Left ventricle not well visualized. Left ventricular hypertrophy. Hypokinetic posterior wall. Hypokinetic inferior wall. Left ventricular ejection fraction is estimated at 35-40 %. Right Ventricle Right ventricular dilatation. Right Atrium Right atrium not well visualized. Left Atrium Left atrium not well visualized. Left atrial dilatation. Mitral Valve Mitral valve not well visualized. No mitral stenosis. Aortic Valve Trileaflet aortic valve. No aortic valve stenosis or regurgitation. Tricuspid Valve Tricuspid valve not well visualized. Pulmonic Valve Pulmonic valve not well visualized. Pericardium No pericardial effusion. Aorta Aortic root and proximal ascending aorta not well visualized. CONCLUSIONS This is a technically difficult study with poor visualization of endocardial margins. Echo contrast was used. It appears that there is global decrease in contractility more so in the inferoposterior wall. Valvular structures are poorly seen no pericardial effusion Previewed by: Dr. Jayjay Virgen MD (Electronically Signed) Final Date: 28 Sep 2023 10:31
--- NOTE | 2023-09-28 10:44 | P.PN ---
Subjective Progress Note Date: 09/28/23 Patient is a 62-year-old male with a past medical history of hypertension, obesity, gout who came into the ER by EMS after getting ACLS protocol for cardiac arrest. was at bedside. states that patient was doing well in the day. He went out for a walk in the neighborhood. She states that later on in the day he was sitting on a chair and then went unresponsive. So she then called EMS. In the ED patient was found to have ST depressions on his EKG. Patient was intubated. Patient then had an emergent heart catheterization done and it showed 80% lesion in the mid LAD 60 to 70% lesion in the distal LAD, 30% in the left circumflex, and 50% in the distal RCA. He underwent stenting of the mid LAD. Patient was then admitted to the medicine service. ROS: Patient currently intubated and sedated so unable to obtain history Physical exam General: [Patient intubated and sedated]. Eye: [Pinpoint pupils, no scleral icterus]. HENT: [Normocephalic, clear tympanic membranes]. Neck: [Supple, non-tender, no carotid bruits, no JVD, no lymphadenopathy]. Lungs: [Diminished breath sounds bilaterally, ET tube in place]. Heart: [Normal rate, regular rhythm, no murmur, gallop or edema]. Abdomen: [Soft, non-tender, non-distended, normal bowel sounds, no masses, morbidly obese]. Neurologic: [Patient currently intubated and sedated so unable to assess]. Psychiatric: [Patient intubated and sedated so unable to assess]. Assessment and plan Cardiac arrest with PEA followed by ventricular tachycardia Non-ST elevation FL Status post stenting to the LAD Cardiology on board Echocardiogram pending Patient started on aspirin 81 mg daily, atorvastatin 80 mg p.o. at bedtime, Brilinta 90 mg p.o. twice daily Cardiology started the patient on metoprolol 25 mg twice daily and lisinopril 5 mg p.o. daily Ventilatory dependent respiratory failure secondary cardiac arrest Acute encephalopathy likely due to anoxic brain injury Service Learning Coordinator to manage the vent CT head showed periventricular patchy white matter there could be due to ischemia versus anoxic brain injury per neurology Neurology recommending repeat CT head in 48 hours EEG report is pending Acute kidney injury likely due to the cardiac arrest Creatinine this morning slightly increased from 1.21-1.45 Will continue to monitor creatinine Prediabetic Patient's hemoglobin A1c is 6.4 Sliding scale insulin Leukocytosis Likely reactive Continue to monitor for signs or symptoms of infection WBC this morning is 16.5 and improving Hypertension Currently patient is normotensive Hold lisinopril and amlodipine for now Per cardiology will start beta-alissa once off the ventilator Gout Resume allopurinol BPH Hold on on tamsulosin until blood pressure improves DVT prophylaxis: Subcu heparin Objective - Vital Signs Vital signs: Vital Signs Temp 98.9 F 09/28/23 08:00 Pulse 76 09/28/23 10:00 Resp 25 H 09/28/23 10:00 BP 103/73 09/28/23 10:00 Pulse Ox 96 09/28/23 10:00 FiO2 50 09/28/23 09:24 Intake & Output 09/27/23 09/28/23 09/28/23 18:59 06:59 18:59 Intake Total 1063.917 2447 760.623 Output Total 570 525 300 Balance 4333.539 6673 460.623 Weight 166 kg 166 kg Intake: IV 1108 1236 459 Magnesium Sulfate-D5w Pmx 100 1 gm In Dextrose/Water 1 100ml.bag @ 100 mls/hr IVPB ONCE ONE Rx#: [id number] Pressure Bag 33 36 9 Sodium Chloride 0.9% 1, 300 1200 300 000 ml @ 100 mls/hr IV . Q10H [facility] Rx#:[id number] Sodium Chloride 0.9% 675 150 1000ml @ 75ml/hr Intake, IV Titration 537.517 300 211.623 Amount propofoL 1,000 mg In 537.517 300 211.623 Empty Bag 1 bag @ 15 MCG/ KG/MIN 14.85 mls/hr IV . Q6H45M [facility] Rx#:[id number] Oral 80 Tube Feeding 50 280 90 Other 30 90 Output: Urine 570 525 300 Other: Voiding Method Indwelling Catheter Indwelling Catheter Indwelling Catheter ABP, PAP, CO, CI - Last Documented Arterial Blood Pressure 143/86 - Labs CBC & Chem 7: 09/28/23 03:35 09/28/23 03:35 Labs: Abnormal Lab Results - Last 24 Hours (Table) 09/27/23 09/27/23 09/27/23 Range/Units 12:25 17:54 23:44 WBC (3.8-10.6) k/uL Neutrophils # (1.3-7.7) k/uL ABG pO2 (83-108) mmHg Sodium (137-145) mmol/L Chloride (98-107) mmol/L BUN (9-20) mg/dL Creatinine (0.66-1.25) mg/dL Glucose (74-99) mg/dL POC Glucose (mg/dL) 154 H 114 H 125 H (70-110) mg/dL Calcium (8.4-10.2) mg/dL 09/28/23 09/28/23 09/28/23 Range/Units 03:35 03:35 05:20 WBC 16.7 H (3.8-10.6) k/uL Neutrophils # 14.3 H (1.3-7.7) k/uL ABG pO2 82 L (83-108) mmHg Sodium 135 L (137-145) mmol/L Chloride 109 H (98-107) mmol/L BUN 26 H (9-20) mg/dL Creatinine 1.45 H (0.66-1.25) mg/dL Glucose 147 H (74-99) mg/dL POC Glucose (mg/dL) (70-110) mg/dL Calcium 8.1 L (8.4-10.2) mg/dL 09/28/23 Range/Units 05:32 WBC (3.8-10.6) k/uL Neutrophils # (1.3-7.7) k/uL ABG pO2 (83-108) mmHg Sodium (137-145) mmol/L Chloride (98-107) mmol/L BUN (9-20) mg/dL Creatinine (0.66-1.25) mg/dL Glucose (74-99) mg/dL POC Glucose (mg/dL) 147 H (70-110) mg/dL Calcium (8.4-10.2) mg/dL Microbiology - Last 24 Hours (Table) 09/27/23 03:25 Gram Stain - Preliminary Sputum
[2023-09-28] MEDS: lisinopriL 5 MG TAB PO SCH (11:21)
[2023-09-28] MEDS: CISATRACURIUM 2 MG/ML 5 ML VIAL IV ONE (11:29)
[2023-09-28 11:39] LABS: Glucose,Whole Blood 116 mg/dL (70-110)
--- NOTE | 2023-09-28 15:08 | OP ---
OPERATIVE REPORT DATE OF SERVICE : PROCEDURE PERFORMED: Placement of a right femoral triple-lumen catheter. PREOPERATIVE DIAGNOSIS: Acute hypoxic respiratory failure, secondary to cardiac arrest. POSTOPERATIVE DIAGNOSIS: Acute hypoxic respiratory failure, secondary to cardiac arrest. ANESTHESIA USED: None deployed. DESCRIPTION OF PROCEDURE: The patient was placed in the supine position, the right groin was prepared in a sterile fashion. The drapes were applied. Then, the right femoral artery was palpated, and the area medial to the right femoral artery was cannulated and cannulated the right femoral vein easily. The guidewire was placed, and the area around the guidewire was dilated. Then, a triple-lumen catheter was inserted over the guidewire, and the guidewire was removed. Good flow noted in the 3 different ports of the triple- lumen catheter, no complications, line was secured using 3.0 silk sutures. MMARPIT / VALERIEN: [id number] /
--- NOTE | 2023-09-28 15:14 | P.PN ---
Subjective Progress Note Date: 09/28/23 Principal diagnosis: Cardiac arrest and anoxic brain injury Patient is a 62-year-old white male with past medical history significant for hypertension, obesity, and former tobacco smoker. Patient is currently intensive care unit, intubated and unable to provide any information. On review of the patient's EMR, the patient was an out of hospital cardiac arrest. He was apparently playing a board game on his phone, slumped over and became unresponsive. His then called 911. Patient was noted to have a V. tach/V- fib arrest by EMS. Estimated time before EMS arrival was 10 minutes, and did not provide CPR. ROSC was achieved in the field by EMS. May have had some ST elevation on initial EKG per EMS. On arrival to the emergency room, he was noted to be unresponsive after ROSC. The patient was intubated by the ER physician. Initial EKG done on arrival showed atrial flutter with slow ventricular rate, right bundle branch with Q waves inferiorly and ST depression in the lateral leads. Patient was emergently taken to the [facility], and was noted to have multivessel coronary artery disease including 80% stenosis of the mid LAD, 30% stenosis of the left circumflex, and 50 to 60% stenosis of the RCA. Patient did receive PCI/stenting of the mid LAD. He was then transferred to the intensive care unit in critical condition. I am evaluating this patient in room 262. He is intubated to the mechanical ventilator. Chest x-ray shows the endotracheal tube approximately 2.9 cm above the diamante. NG tube courses into the stomach. There is mild cardiomegaly and pulmonary vascular congestion. No effusions, pneumothoraces, focal infiltrates. Current ventilator settings include assist-control, respiratory rate 18, tidal volume 500, FiO2 60%, PEEP of 5. He is breathing above set rate in the mid 20s. ABGs done on the above- mentioned settings but an FiO2 of 100% had a PaO2 of 100, pCO2 46, pH of 7.37. He is sedated on propofol at 40 mcg/kg/min. Does not follow any commands. Unresponsive to painful stimuli at this time. Heart rhythm on bedside monitor appears first-degree AV block, with a heart rate of 60 bpm. Blood pressure is normotensive. He has received a total of 1.5 L normal saline bolus since arrival to the emergency room. Currently has normal saline infusing at 75 mL/h. No vasopressors have been required. Temperature currently 98.5 F. CBC on arrival: WBC count 18.9, hemoglobin 15.8, hematocrit 50.1, platelets 272. CMP o n arrival: Sodium 136, potassium 4.3, chloride 103, serum bicarb 21, BUN 18, creatinine 1.1, glucose 230. Lactic acid level 3.1 and down to 2.2. LFTs mildly elevated. Troponin 0.482 and 0.848 respectively. NT proBNP 2900. Patient's has already left and went home for the night. Patient was evaluated today on 09/28/2023, remains in the ICU, intubated and mechanically ventilated. He is presently on assist-control rate of 18 tidal volume 500 FiO2 50% PEEP of 8 ABG showed a pO2 of 82 pCO2 38 pH of 7.41. Patient still requiring propofol at 40 mcg/kg/min, IV fluid at 100 cc/h. CT of the brain showed white matter changes consistent with ischemic changes. EEG is pending, patient is being followed by neurology for what seems to be anoxic brain injury. Today we had issues with his endotracheal tube, patient underwent bronchoscopy and adjustment of the endotracheal tube advanced down to the area just above the diamante. Lavage of his lungs was performed since he had significant amount of secretions noted as well adjusting the endotracheal tube. Patient is on Zosyn empirically he did have a temp last night. Considering the patient has no good venous access, a right femoral triple-lumen catheter was also placed today. Neurologically the patient is about the same, no responses whatsoever, we will continue to have daily interruption of sedation and assessment of mental status, this will be evaluated again tomorrow. Patient is hemodynamically stable not requiring any pressors, remains on GI and DVT prophylaxis, and we addressed enteral feeding via nasogastric WBC count today is 16.7 hemoglobin 13.7 electrolytes are normal BUN is 26 creatinine 1.45 slightly rising compared to 1.21 yesterday's x-ray is showing bibasilar infiltrates, more so at the right lung base, hence Zosyn was initiated today. And lavage of lungs was performed today Objective - Vital Signs Vital signs: Vital Signs Temp 99.7 F H 09/28/23 12:00 Pulse 81 09/28/23 14:45 Resp 23 09/28/23 14:45 BP 123/89 09/28/23 14:45 Pulse Ox 94 L 09/28/23 14:45 FiO2 50 09/28/23 12:00 Intake & Output 09/27/23 09/28/23 09/28/23 18:59 06:59 18:59 Intake Total 9181.236 7395 1817.685 Output Total 570 525 975 Balance 9888.312 2713 842.685 Weight 166 kg 166 kg Intake: IV 1108 1236 1349 Magnesium Sulfate-D5w Pmx 100 1 gm In Dextrose/Water 1 100ml.bag @ 100 mls/hr IVPB ONCE ONE Rx#: [id number] Pressure Bag 33 36 24 Sodium Chloride 0.9% 1, 300 1200 800 000 ml @ 100 mls/hr IV . Q10H [facility] Rx#:[id number] Sodium Chloride 0.9% 675 525 1000ml @ 75ml/hr Intake, IV Titration 537.517 300 378.685 Amount propofoL 1,000 mg In 537.517 300 378.685 Empty Bag 1 bag @ 15 MCG/ KG/MIN 14.85 mls/hr IV . Q6H45M [facility] Rx#:[id number] Oral 80 Tube Feeding 50 280 90 Other 30 90 Output: Urine 570 525 975 Other: Voiding Method Indwelling Catheter Indwelling Catheter Indwelling Catheter ABP, PAP, CO, CI - Last Documented Arterial Blood Pressure 157/84 - Exam GENERAL EXAM: Remains unresponsive, morbidly obese, ventilated, on mechanical ventilation HEAD: Normocephalic and atraumatic EYES: Pupils approximately 1 mm in diameter, remain sluggish to light NOSE: Clear with pink turbinates. THROAT: No erythema or exudates. NECK: No masses, no JVD. CHEST: No chest wall deformity. LUNGS: Equal air entry with no crackles, rhonchi noted bilaterally CVS: S1 and S2 normal with no audible murmur, regular rhythm. No extra heart sounds ABDOMEN: No hepatosplenomegaly, active bowel sounds, no guarding or rigidity. SKIN: No rashes CENTRAL NERVOUS SYSTEM: Could not assess patient is sedated on propofol EXTREMITIES: There is no peripheral edema, clubbing, or cyanosis. Peripheral pulses are intact. - Labs CBC & Chem 7: 09/28/23 03:35 09/28/23 03:35 Labs: Abnormal Lab Results - Last 24 Hours (Table) 09/27/23 09/27/23 09/28/23 Range/Units 17:54 23:44 03:35 WBC 16.7 H (3.8-10.6) k/uL Neutrophils # 14.3 H (1.3-7.7) k/uL ABG pO2 (83-108) mmHg Sodium (137-145) mmol/L Chloride (98-107) mmol/L BUN (9-20) mg/dL Creatinine (0.66-1.25) mg/dL Glucose (74-99) mg/dL POC Glucose (mg/dL) 114 H 125 H (70-110) mg/dL Calcium (8.4-10.2) mg/dL 09/28/23 09/28/23 09/28/23 Range/Units 03:35 05:20 05:32 WBC (3.8-10.6) k/uL Neutrophils # (1.3-7.7) k/uL ABG pO2 82 L (83-108) mmHg Sodium 135 L (137-145) mmol/L Chloride 109 H (98-107) mmol/L BUN 26 H (9-20) mg/dL Creatinine 1.45 H (0.66-1.25) mg/dL Glucose 147 H (74-99) mg/dL POC Glucose (mg/dL) 147 H (70-110) mg/dL Calcium 8.1 L (8.4-10.2) mg/dL 09/28/23 Range/Units 11:38 WBC (3.8-10.6) k/uL Neutrophils # (1.3-7.7) k/uL ABG pO2 (83-108) mmHg Sodium (137-145) mmol/L Chloride (98-107) mmol/L BUN (9-20) mg/dL Creatinine (0.66-1.25) mg/dL Glucose (74-99) mg/dL POC Glucose (mg/dL) 116 H (70-110) mg/dL Calcium (8.4-10.2) mg/dL Microbiology - Last 24 Hours (Table) 09/27/23 03:25 Gram Stain - Preliminary Sputum Sputum Culture - Preliminary Assessment and Plan Assessment: Impression: Out of hospital cardiac arrest and suspected ACS, estimated downtime prior to EMS arrival was approximately 10 minutes, did not perform any CPR. Rhythm noted as V. tach versus V-fib arrest per EMS. ROSC was ultimately achieved in the field, and patient was intubated on arrival to the emergency department, there were concerns for airway protection as the patient was unresponsive. After ROSC, concerns for some potential ST elevation in route by EMS. Patient was emergently taken to the [facility] on arrival, and received 1 stent to the mid LAD. Strongly suspect anoxic brain injury I believe the patient must have had a longer downtime then mentioned earlier Acute hypoxemic respiratory failure, secondary to above, intubated to the mechanical ventilator. Coronary artery disease, heart catheterization noted 80% stenosis of the mid LAD, 30% stenosis of the left circumflex, and 50 to 60% stenosis of the RCA. Patient did receive PCI/stenting of the mid LAD. Leukocytosis, likely reactive to cardiac arrest Mild transaminitis, likely secondary to cardiac arrest and hypoperfusion Altered mental status, rule out anoxic brain injury History of hypertension History of obesity with a BMI of 48 kg/m History of former tobacco dependence History of gout History of BPH Recommendation: Continue ventilatory support Continue IV fluids Start patient on Zosyn Continue medical therapy for his underlying coronary artery disease, status post stent of mid LAD Continue GI DVT prophylaxis Continue nutritional support/enteral feeding reviewed the findings on the CT of the brain Neurology is following regarding his anoxic brain injury EEG is pending Check cultures from BAL which was done today/from bronchoscopy Overall prognosis is extremely poor and guarded considering his anoxic brain injury Continue antiplatelet therapy as ordered by cardiology Patient remains critically ill Critical care time is over 30 minutes not including the time spent on procedures Will continue to follow Time with Patient: Greater than 30
--- NOTE | 2023-09-28 15:17 | OP ---
OPERATIVE REPORT DATE OF SERVICE : PROCEDURES PERFORMED: Bronchoscopy, endotracheal tube placement in the proper position, and bronchoalveolar lavage/random washing of both lungs. PREOPERATIVE DIAGNOSES: Acute hypoxic respiratory failure, secondary to CVA, requiring intubation and mechanical ventilation, the patient has issues with his endotracheal tube, and has lots of secretions. POSTOPERATIVE DIAGNOSES: Acute hypoxic respiratory failure, secondary to CVA, requiring intubation and mechanical ventilation, the patient has issues with his endotracheal tube, and has lots of secretions. ANESTHESIA USED: The patient was already on propofol, the patient received a dose of Nimbex 15 mg IV push, and he also received morphine 4 mg IV push plus the propofol he was on already. DESCRIPTION OF PROCEDURE: The patient was placed in a supine position, and an adapter was applied to the endotracheal tube, then the bronchoscope was inserted down to the distal end of the endotracheal tube, there was no evidence of kinking; however, the endotracheal tube was noted to be sitting way up high in the trachea in the proximal portion of the trachea, although it was already at 25 cm at the lip. Then, using the bronchoscope and the stylet, the endotracheal tube was advanced down further to the distal trachea and was placed about 4 cm above the diamante. This was done with direct visualization. However, I have noted that there was significant amount of secretions in the distal end and in the carinal area, suctioning was performed, lavage of the right upper lobe, right middle lobe, right lower lobe, and lavage of the left upper lobe lingula and left lower lobe was done. The purulent secretions were suctioned out of the airways, and sent for different diagnostic studies. Again, the endotracheal tube was secured to be in the proper position. The procedure was well tolerated and no complications. MMODL / IJN: [id number] /
[2023-09-28] MEDS: PIPERACILLIN-TAZOBACTAM 3.375 GM in SODIUM CHLORIDE 0.9% 100 ML IVPB SCH (15:43)
[2023-09-28 17:04] LABS: Appearance,BF Turbid (Clear); RBC, Body Fluid 8500 /UL (0-2000)
[2023-09-28 17:45] LABS: Glucose,Whole Blood 149 mg/dL (70-110)
[2023-09-28] MEDS: carvediloL 6.25 MG TAB PO SCH (18:53)
[2023-09-28] MEDS: lisinopriL 20 MG TAB PO SCH (20:03)
[2023-09-28] MEDS ORDERED: METOPROLOL TARTRATE 25 MG TAB PO SCH (21:00)
[2023-09-28] MEDS: SODIUM CHLORIDE 0.9% 500 ML 500 ML IV ONE (21:29)
[2023-09-28 23:59] LABS: Glucose,Whole Blood 164 mg/dL (70-110)
--- NOTE | 2023-09-29 02:35 | EEG ---
ELECTROENCEPHALOGRAM REPORT PREAMBLE: This is a 62-year-old male with cardiac arrest. This study is performed to evaluate for cerebral activity. EEG FINDINGS: This is a 21-channel portable EEG recorded with video component, utilizing 10/20 international system with referential and bipolar montages. The background consists of moderately well-developed, poorly regulated, mixed frequencies of alpha and theta activity seen diffusely in bihemispheric region. Some sweat artifact was also seen periodically. Background does not seem to be reactive to eye opening or closing. Photic driving response was not seen. Different stages of sleep were not seen. No focal or generalized epileptiform activity was seen. IMPRESSION: Abnormal EEG due to background slowing of mild to moderate degree. This is seen with generalized cerebral dysfunction as can be seen with toxic metabolic encephalopathy. Alpha coma can be associated with cardiac arrest. Clinical correlation strongly recommended. No epileptiform activity was seen. Followup EEG recommended, if clinically indicated. MMARPIT / VALERIEN: [id number] / MTDD
[2023-09-29 05:15] LABS: ABG Base Excess -0.7 mmol/L; ABG HCO3 24 mmol/L (21-25); ABG Oxygen Saturation 95.6 % (94-97); ABG PCO2 39 mmHg (35-45); ABG PO2 77 mmHg (83-108); Allen Test Performed? Yes
[2023-09-29 05:37] LABS: Basophils # (A) 0.1 k/uL (0-0.2); Basophils % (A) 0 %; Eosinophils # (A) 0.1 k/uL (0-0.7); Eosinophils % (A) 1 %; HCT 39.8 % (39.0-53.0); HGB 12.8 gm/dL (13.0-17.5); Lymphocytes # (A) 1.5 k/uL (1.0-4.8); Lymphocytes % (A) 6 %; MCHC 32.2 g/dL (31.0-37.0); MCV 93.2 fL (80.0-100.0); Mean Platelet Volume 10.4; Monocytes # (A) 1.4 k/uL (0-1.0); Monocytes % (A) 6 %; Neutrophils # (A) 20.8 k/uL (1.3-7.7); Neutrophils % (A) 86 %; Platelet Count 164 k/uL (150-450); RBC 4.27 m/uL (4.30-5.90); RDW 13.9 % (11.5-15.5); WBC 24.1 k/uL (3.8-10.6)
[2023-09-29 05:38] LABS: Glucose,Whole Blood 156 mg/dL (70-110)
[2023-09-29 05:52] LABS: African American GFR (CKD) 68 (>60 ml/min/1.73 sqM); Anion Gap 3 mmol/L; Blood Urea Nitrogen 21 mg/dL (9-20); Calcium 8.2 mg/dL (8.4-10.2); Carbon Dioxide 24 mmol/L (22-30); Chloride 112 mmol/L (98-107); Glucose 149 mg/dL (74-99); Magnesium 1.8 mg/dL (1.6-2.3); Non-African American GFR(CKD) 59 (>60 ml/min/1.73 sqM); Potassium 4.1 mmol/L (3.5-5.1); Sodium 139 mmol/L (137-145)
--- NOTE | 2023-09-29 06:42 | XR ---
EXAMINATION TYPE: XR chest 1V portable DATE OF EXAM: 09/29/2023 COMPARISON: 09/28/2023 HISTORY: Tube placement TECHNIQUE: Single frontal view of the chest is obtained. FINDINGS: ET tube is 4.4 cm above the diamante. There are persistent small effusions and moderate cardiomegaly. There is no pneumothorax. IMPRESSION: ET tube 4.4 cm above the diamante. No other significant interval change in the mild cardio pulmonary disease.
[2023-09-29] MEDS: MAGNESIUM SULFATE-D5W PMX 1 GM in DEXTROSE/WATER 1 100ML.BAG IVPB ONE (06:54)
[2023-09-29] MEDS: CISATRACURIUM 2 MG/ML 5 ML VIAL IV ONE ×2 (10:25→11:59)
--- NOTE | 2023-09-29 10:42 | XR ---
EXAMINATION TYPE: XR chest 1V portable DATE OF EXAM: 09/29/2023 COMPARISON: 09/29/2023 HISTORY: Decreased breath sounds TECHNIQUE: Single frontal view of the chest is obtained. FINDINGS: The ET tube is now 2.5 cm above the diamante. There is an NG tube within the stomach. There is persistent cardiomegaly and by lateral pleural effusions. There is no airspace consolidation . There is no pneumothorax. IMPRESSION: 1. ET tube 2.5 cm above the diamante. 2. No change in the bilateral pleural effusions and cardiomegaly.
[2023-09-29 11:21] LABS: Amorphous Sediment,Urine Rare /hpf; Appearance,Urine Cloudy (Clear); Bilirubin,Urine Negative (Negative); Blood,Urine Moderate (Negative); Color,Urine Yellow; Glucose,Urine (UA) Negative (Negative); Ketones,Urine Negative (Negative); Leukocyte Esterase,Urine Moderate (Negative); Mucus,Urine Rare /hpf; Nitrite,Urine Negative (Negative); Protein,Urine 1+ (Negative); RBC,Urine 6 /hpf (0-5); Specific Gravity,Urine 1.033 (1.001-1.035); Squamous Epithelial Cell,Urine 16 /hpf (0-4); Urobilinogen,Urine <2.0 mg/dL (<2.0); WBC,Urine 34 /hpf (0-5)
--- NOTE | 2023-09-29 11:30 | P.PN ---
Subjective Progress Note Date: 09/29/23 Principal diagnosis: Cardiac arrest and anoxic brain injury Patient is a 62-year-old white male with past medical history significant for hypertension, obesity, and former tobacco smoker. Patient is currently intensive care unit, intubated and unable to provide any information. On review of the patient's EMR, the patient was an out of hospital cardiac arrest. He was apparently playing a board game on his phone, slumped over and became unresponsive. His then called 911. Patient was noted to have a V. tach/V- fib arrest by EMS. Estimated time before EMS arrival was 10 minutes, and did not provide CPR. ROSC was achieved in the field by EMS. May have had some ST elevation on initial EKG per EMS. On arrival to the emergency room, he was noted to be unresponsive after ROSC. The patient was intubated by the ER physician. Initial EKG done on arrival showed atrial flutter with slow ventricular rate, right bundle branch with Q waves inferiorly and ST depression in the lateral leads. Patient was emergently taken to the [facility], and was noted to have multivessel coronary artery disease including 80% stenosis of the mid LAD, 30% stenosis of the left circumflex, and 50 to 60% stenosis of the RCA. Patient did receive PCI/stenting of the mid LAD. He was then transferred to the intensive care unit in critical condition. I am evaluating this patient in room 262. He is intubated to the mechanical ventilator. Chest x-ray shows the endotracheal tube approximately 2.9 cm above the diamante. NG tube courses into the stomach. There is mild cardiomegaly and pulmonary vascular congestion. No effusions, pneumothoraces, focal infiltrates. Current ventilator settings include assist-control, respiratory rate 18, tidal volume 500, FiO2 60%, PEEP of 5. He is breathing above set rate in the mid 20s. ABGs done on the above- mentioned settings but an FiO2 of 100% had a PaO2 of 100, pCO2 46, pH of 7.37. He is sedated on propofol at 40 mcg/kg/min. Does not follow any commands. Unresponsive to painful stimuli at this time. Heart rhythm on bedside monitor appears first-degree AV block, with a heart rate of 60 bpm. Blood pressure is normotensive. He has received a total of 1.5 L normal saline bolus since arrival to the emergency room. Currently has normal saline infusing at 75 mL/h. No vasopressors have been required. Temperature currently 98.5 F. CBC on arrival: WBC count 18.9, hemoglobin 15.8, hematocrit 50.1, platelets 272. CMP o n arrival: Sodium 136, potassium 4.3, chloride 103, serum bicarb 21, BUN 18, creatinine 1.1, glucose 230. Lactic acid level 3.1 and down to 2.2. LFTs mildly elevated. Troponin 0.482 and 0.848 respectively. NT proBNP 2900. Patient's has already left and went home for the night. Patient was evaluated today on 09/28/2023, remains in the ICU, intubated and mechanically ventilated. He is presently on assist-control rate of 18 tidal volume 500 FiO2 50% PEEP of 8 ABG showed a pO2 of 82 pCO2 38 pH of 7.41. Patient still requiring propofol at 40 mcg/kg/min, IV fluid at 100 cc/h. CT of the brain showed white matter changes consistent with ischemic changes. EEG is pending, patient is being followed by neurology for what seems to be anoxic brain injury. Today we had issues with his endotracheal tube, patient underwent bronchoscopy and adjustment of the endotracheal tube advanced down to the area just above the diamante. Lavage of his lungs was performed since he had significant amount of secretions noted as well adjusting the endotracheal tube. Patient is on Zosyn empirically he did have a temp last night. Considering the patient has no good venous access, a right femoral triple-lumen catheter was also placed today. Neurologically the patient is about the same, no responses whatsoever, we will continue to have daily interruption of sedation and assessment of mental status, this will be evaluated again tomorrow. Patient is hemodynamically stable not requiring any pressors, remains on GI and DVT prophylaxis, and we addressed enteral feeding via nasogastric WBC count today is 16.7 hemoglobin 13.7 electrolytes are normal BUN is 26 creatinine 1.45 slightly rising compared to 1.21 yesterday's x-ray is showing bibasilar infiltrates, more so at the right lung base, hence Zosyn was initiated today. And lavage of lungs was performed today Patient was reevaluated today on 09/29/2023, patient is in the ICU, intubated and mechanically ventilated. Patient is on assist-control rate of 18 tidal volume 500 FiO2 50% and PEEP of 10 ABG showed a pO2 of 77 pCO2 39 pH of 7.40. Patient spiked a temp last night he had a temp of 102.8, patient was started empirically yesterday on Zosyn specially after noticing that the patient had significant purulent secretions from his bronchoscopy yesterday. Cultures are pending in the meantime the patient is on Zosyn. Patient is on propofol at 50 mcg/kg/min IV fluid at 20 cc/h he is on vital HP at 42 cc/h. No ventilator setting changes were done today, chest x-ray was reviewed, patient has adequate placement of the endotracheal tube., There is cardiomegaly and small bilateral pleural effusions noted. Endotracheal tube is 2.5 cm above the diamante. No clear-cut evidence of pneumonia although the patient is a potential set up for aspiration pneumonia. And he is being treated as such. Patient has positive fluid balance, may gently diurese the patient today. His urine output is excellent. Patient had sedation interruption yesterday and no neurological recovery is noted his EEG showed generalized ischemic cerebral dysfunction consistent with toxic metabolic encephalopathy. And consistent with anoxic brain injury for Objective - Vital Signs Vital signs: Vital Signs Temp 99.8 F H 09/29/23 04:00 Pulse 75 09/29/23 07:00 Resp 25 H 09/29/23 07:00 BP 135/88 09/29/23 00:15 Pulse Ox 98 09/29/23 07:00 FiO2 70 09/29/23 08:43 Intake & Output 09/28/23 09/29/23 09/29/23 18:59 06:59 18:59 Intake Total 2000.573 3021.858 265 Output Total 1325 773 40 Balance 851.781 0488.858 225 Weight 166 kg 164 kg Intake: IV 1331 1498 123 Piperacillin-Tazobactam 3 75 25 .375 gm In Sodium Chloride 0.9% 100 ml @ 25 mls/hr IVPB Q8HR [facility] Rx# :[id number] Pressure Bag 36 33 3 Sodium Chloride 0.9% 1, 1000 1200 100 000 ml @ 100 mls/hr IV . Q10H [facility] Rx#:[id number] Sodium Chloride 0.9% 1, 220 240 20 000 ml @ 20 mls/hr IV . Q24H [facility] Rx#:[id number] Intake, IV Titration 579.573 635.858 100 Amount Piperacillin-Tazobactam 3 100 .375 gm In Sodium Chloride 0.9% 100 ml @ 25 mls/hr IVPB Q8HR [facility] Rx# :[id number] propofoL 1,000 mg In 579.573 535.858 100 Empty Bag 1 bag @ 15 MCG/ KG/MIN 14.85 mls/hr IV . Q6H45M [facility] Rx#:[id number] Tube Feeding 90 798 42 Other 90 Output: Urine 1325 773 40 Other: Voiding Method Indwelling Catheter Indwelling Catheter ABP, PAP, CO, CI - Last Documented Arterial Blood Pressure 144/68 - Exam GENERAL EXAM:unresponsive, morbidly obese, ventilated, on mechanical ventilation HEAD: Normocephalic and atraumatic EYES: Pupils approximately 1 mm in diameter, remain sluggish to light NOSE: Clear with pink turbinates. THROAT: No erythema or exudates. NECK: No masses, no JVD. CHEST: No chest wall deformity. LUNGS: Equal air entry with no crackles, rhonchi noted bilaterally CVS: S1 and S2 normal with no audible murmur, regular rhythm. No extra heart sounds ABDOMEN: No hepatosplenomegaly, active bowel sounds, no guarding or rigidity. SKIN: No rashes CENTRAL NERVOUS SYSTEM: Could not assess patient is sedated on propofol, may give the patient a trial of sedation interruption today EXTREMITIES: There is trace of peripheral edema, clubbing, or cyanosis. Peripheral pulses are intact. - Labs CBC & Chem 7: 09/29/23 05:11 09/29/23 05:11 Labs: Abnormal Lab Results - Last 24 Hours (Table) 09/28/23 09/28/23 09/28/23 Range/Units 11:20 11:38 17:43 WBC (3.8-10.6) k/uL RBC (4.30-5.90) m/uL Hgb (13.0-17.5) gm/dL Neutrophils # (1.3-7.7) k/uL Monocytes # (0-1.0) k/uL ABG pO2 (83-108) mmHg Chloride (98-107) mmol/L BUN (9-20) mg/dL Creatinine (0.66-1.25) mg/dL Glucose (74-99) mg/dL POC Glucose (mg/dL) 116 H 149 H (70-110) mg/dL Calcium (8.4-10.2) mg/dL Fluid Appearance Turbid A (Clear) 09/28/23 09/29/23 09/29/23 Range/Units 23:57 05:11 05:11 WBC 24.1 H (3.8-10.6) k/uL RBC 4.27 L (4.30-5.90) m/uL Hgb 12.8 L (13.0-17.5) gm/dL Neutrophils # 20.8 H (1.3-7.7) k/uL Monocytes # 1.4 H (0-1.0) k/uL ABG pO2 (83-108) mmHg Chloride 112 H (98-107) mmol/L BUN 21 H (9-20) mg/dL Creatinine 1.29 H (0.66-1.25) mg/dL Glucose 149 H (74-99) mg/dL POC Glucose (mg/dL) 164 H (70-110) mg/dL Calcium 8.2 L (8.4-10.2) mg/dL Fluid Appearance (Clear) 09/29/23 09/29/23 Range/Units 05:15 05:37 WBC (3.8-10.6) k/uL RBC (4.30-5.90) m/uL Hgb (13.0-17.5) gm/dL Neutrophils # (1.3-7.7) k/uL Monocytes # (0-1.0) k/uL ABG pO2 77 L (83-108) mmHg Chloride (98-107) mmol/L BUN (9-20) mg/dL Creatinine (0.66-1.25) mg/dL Glucose (74-99) mg/dL POC Glucose (mg/dL) 156 H (70-110) mg/dL Calcium (8.4-10.2) mg/dL Fluid Appearance (Clear) Microbiology - Last 24 Hours (Table) 09/27/23 03:25 Gram Stain - Final Sputum Sputum Culture - Final 09/28/23 11:20 Gram Stain - Preliminary Bronchoalviolar Lavage - Right Assessment and Plan Assessment: Impression: Out of hospital cardiac arrest and suspected ACS, estimated downtime prior to EMS arrival was approximately 10 minutes, did not perform any CPR. Rhythm noted as V. tach versus V-fib arrest per EMS. ROSC was ultimately achieved in the field, and patient was intubated on arrival to the emergency department, there were concerns for airway protection as the patient was unresponsive. After ROSC, concerns for some potential ST elevation in route by EMS. Patient was emergently taken to the [facility] on arrival, and received 1 stent to the mid LAD. Strongly suspect anoxic brain injury I believe the patient must have had a longer downtime then mentioned earlier Acute hypoxemic respiratory failure, secondary to above, intubated to the mechanical ventilator. Coronary artery disease, heart catheterization noted 80% stenosis of the mid LAD, 30% stenosis of the left circumflex, and 50 to 60% stenosis of the RCA. Patient did receive PCI/stenting of the mid LAD. Leukocytosis, likely reactive to cardiac arrest, patient clearly has purulent tracheobronchitis based on bronchoscopy findings, underlying aspiration pneumo nunu is also suspected. Mild transaminitis, likely secondary to cardiac arrest and hypoperfusion Altered mental status, rule out anoxic brain injury History of hypertension History of obesity with a BMI of 48 kg/m History of former tobacco dependence History of gout History of BPH Recommendation: Continue ventilatory support Continue antibiotics/Zosyn Continue medical therapy for his underlying coronary artery disease, status post stent of mid LAD Continue GI DVT prophylaxis Continue nutritional support/enteral feeding Reviewed EEG results and CT of the brain results consistent with anoxic brain injury Neurology is following regarding his anoxic brain injury Check cultures from BAL Overall prognosis is extremely poor and guarded considering his anoxic brain injury Continue antiplatelet therapy as ordered by cardiology Patient is still critically ill. Prognosis is extremely poor considering his anoxic brain injury Critical care time is over 30 minutes Will continue to follow Time with Patient: Greater than 30
[2023-09-29] MEDS: FUROSEMIDE 10 MG/ML 4 ML VIAL IV STA (11:39)
--- NOTE | 2023-09-29 11:44 | P.PN ---
Subjective Progress Note Date: 09/29/23 The patient is a 62-year-old male who presented to the hospital after PEA arrest in his home. On arrival to the emergency room, EKG showed right bundle branch block with ST depression and therefore was taken to the [facility]. Coronary angiogram revealed 80% lesion in the mid LAD, 60 to 70% lesion in the distal LAD, 30% in the left circumflex, and 50% in the distal RCA. He underwent stenting of the mid LAD. Thereafter the patient's neurological status has not returned and he underwent CT scan showing periventricular white matter changes consistent with anoxic encephalopathy. EEG readings also reveal generalized cerebral dysfunction, consistent with metabolic encephalopathy. The patient is currently being weaned from his propofol. He will open his eyes, but continues to fight the ventilator and has hypertension GENERAL: Ill-appearing, well-nourished. Patient is agitated off of sedation NECK: Supple without JVD or thyromegaly. LUNGS: Breath sounds coarse to auscultation bilaterally. Respiration equal and unlabored. Bilateral rhonchi HEART: Regular rate and rhythm without murmurs, rubs or gallops. S1 and S2 heard. EXTREMITIES: Normal range of motion, no edema. No clubbing or cyanosis. Peripheral pulses intact and strong. TELEMETRY: Sinus rhythm overnight. Occasional PVCs IMPRESSION: Cardiac arrest, PEA followed by ventricular tachycardia Non-ST elevated myocardial infarction Status post stenting to the LAD Ischemic cardiomyopathy, EF 35 to 40% with inferior hypokinesis History of hypertension History of dyslipidemia Morbid obesity, BMI 48 PLAN: Continue supportive treatment Poor prognosis with patient's neurological status Further recommendations to be based upon clinical course I am dictating on behalf of Dr Brad Westfall's history/physical and assessment/plan. Objective - Vital Signs Vital signs: Vital Signs Temp 99.8 F H 09/29/23 04:00 Pulse 75 09/29/23 07:00 Resp 25 H 09/29/23 07:00 BP 135/88 09/29/23 00:15 Pulse Ox 98 09/29/23 07:00 FiO2 70 09/29/23 08:43 Intake & Output 09/28/23 09/29/23 09/29/23 18:59 06:59 18:59 Intake Total 2000.573 3021.858 265 Output Total 1325 773 40 Balance 892.474 0718.858 225 Weight 166 kg 164 kg Intake: IV 1331 1498 123 Piperacillin-Tazobactam 3 75 25 .375 gm In Sodium Chloride 0.9% 100 ml @ 25 mls/hr IVPB Q8HR [facility] Rx# :[id number] Pressure Bag 36 33 3 Sodium Chloride 0.9% 1, 1000 1200 100 000 ml @ 100 mls/hr IV . Q10H [facility] Rx#:[id number] Sodium Chloride 0.9% 1, 220 240 20 000 ml @ 20 mls/hr IV . Q24H [facility] Rx#:[id number] Intake, IV Titration 579.573 635.858 100 Amount Piperacillin-Tazobactam 3 100 .375 gm In Sodium Chloride 0.9% 100 ml @ 25 mls/hr IVPB Q8HR [facility] Rx# :[id number] propofoL 1,000 mg In 579.573 535.858 100 Empty Bag 1 bag @ 15 MCG/ KG/MIN 14.85 mls/hr IV . Q6H45M [facility] Rx#:[id number] Tube Feeding 90 798 42 Other 90 Output: Urine 1325 773 40 Other: Voiding Method Indwelling Catheter Indwelling Catheter ABP, PAP, CO, CI - Last Documented Arterial Blood Pressure 144/68 - Labs CBC & Chem 7: 09/29/23 05:11 09/29/23 05:11 Labs: Abnormal Lab Results - Last 24 Hours (Table) 09/28/23 09/28/23 09/28/23 Range/Units 11:20 17:43 23:57 WBC (3.8-10.6) k/uL RBC (4.30-5.90) m/uL Hgb (13.0-17.5) gm/dL Neutrophils # (1.3-7.7) k/uL Monocytes # (0-1.0) k/uL ABG pO2 (83-108) mmHg Chloride (98-107) mmol/L BUN (9-20) mg/dL Creatinine (0.66-1.25) mg/dL Glucose (74-99) mg/dL POC Glucose (mg/dL) 149 H 164 H (70-110) mg/dL Calcium (8.4-10.2) mg/dL Urine Protein (Negative) Urine Blood (Negative) Ur Leukocyte Esterase (Negative) Urine RBC (0-5) /hpf Urine WBC (0-5) /hpf Ur Squamous Epith Cells (0-4) /hpf Amorphous Sediment (None) /hpf Urine Mucus (None) /hpf Fluid Appearance Turbid A (Clear) 09/29/23 09/29/23 09/29/23 Range/Units 05:11 05:11 05:15 WBC 24.1 H (3.8-10.6) k/uL RBC 4.27 L (4.30-5.90) m/uL Hgb 12.8 L (13.0-17.5) gm/dL Neutrophils # 20.8 H (1.3-7.7) k/uL Monocytes # 1.4 H (0-1.0) k/uL ABG pO2 77 L (83-108) mmHg Chloride 112 H (98-107) mmol/L BUN 21 H (9-20) mg/dL Creatinine 1.29 H (0.66-1.25) mg/dL Glucose 149 H (74-99) mg/dL POC Glucose (mg/dL) (70-110) mg/dL Calcium 8.2 L (8.4-10.2) mg/dL Urine Protein (Negative) Urine Blood (Negative) Ur Leukocyte Esterase (Negative) Urine RBC (0-5) /hpf Urine WBC (0-5) /hpf Ur Squamous Epith Cells (0-4) /hpf Amorphous Sediment (None) /hpf Urine Mucus (None) /hpf Fluid Appearance (Clear) 09/29/23 09/29/23 Range/Units 05:37 10:55 WBC (3.8-10.6) k/uL RBC (4.30-5.90) m/uL Hgb (13.0-17.5) gm/dL Neutrophils # (1.3-7.7) k/uL Monocytes # (0-1.0) k/uL ABG pO2 (83-108) mmHg Chloride (98-107) mmol/L BUN (9-20) mg/dL Creatinine (0.66-1.25) mg/dL Glucose (74-99) mg/dL POC Glucose (mg/dL) 156 H (70-110) mg/dL Calcium (8.4-10.2) mg/dL Urine Protein 1+ H (Negative) Urine Blood Moderate H (Negative) Ur Leukocyte Esterase Moderate H (Negative) Urine RBC 6 H (0-5) /hpf Urine WBC 34 H (0-5) /hpf Ur Squamous Epith Cells 16 H (0-4) /hpf Amorphous Sediment Rare H (None) /hpf Urine Mucus Rare H (None) /hpf Fluid Appearance (Clear) Microbiology - Last 24 Hours (Table) 09/27/23 03:25 Gram Stain - Final Sputum Sputum Culture - Final 09/28/23 11:20 Gram Stain - Preliminary Bronchoalviolar Lavage - Right
[2023-09-29 11:53] LABS: Glucose,Whole Blood 164 mg/dL (70-110)
[2023-09-29] MEDS: CISATRACURIUM 200 MG in SODIUM CHLORIDE 0.9% 180 ML IV SCH (12:00)
--- NOTE | 2023-09-29 12:12 | P.PN ---
Subjective Progress Note Date: 09/28/23 Patient was seen for a follow-up. Patient's was present. Patient has developed temperature of 100. He has developed pneumonia. Patient underwent bronchoscopy today for which he received a dose of Nimbex. Patient continues to be on propofol 50 mcg/kg/min. Patient has been started on antibiotics. No sedation holiday performed today. Objective - Vital Signs Vital signs: Vital Signs Temp 99.7 F H 09/28/23 12:00 Pulse 81 09/28/23 14:45 Resp 23 09/28/23 14:45 BP 123/89 09/28/23 14:45 Pulse Ox 94 L 09/28/23 14:45 FiO2 50 09/28/23 12:00 Intake & Output 09/27/23 09/28/23 09/28/23 18:59 06:59 18:59 Intake Total 0868.230 0172 1817.685 Output Total 570 525 975 Balance 1829.675 7157 842.685 Weight 166 kg 166 kg Intake: IV 1108 1236 1349 Magnesium Sulfate-D5w Pmx 100 1 gm In Dextrose/Water 1 100ml.bag @ 100 mls/hr IVPB [facility] Rx#: [id number] Pressure Bag 33 36 24 Sodium Chloride 0.9% 1, 300 1200 800 000 ml @ 100 mls/hr IV . Q10H [facility] Rx#:[id number] Sodium Chloride 0.9% 675 525 1000ml @ 75ml/hr Intake, IV Titration 537.517 300 378.685 Amount propofoL 1,000 mg In 537.517 300 378.685 Empty Bag 1 bag @ 15 MCG/ KG/MIN 14.85 mls/hr IV . Q6H45M [facility] Rx#:[id number] Oral 80 Tube Feeding 50 280 90 Other 30 90 Output: Urine 570 525 975 Other: Voiding Method Indwelling Catheter Indwelling Catheter Indwelling Catheter ABP, PAP, CO, CI - Last Documented Arterial Blood Pressure 157/84 - Exam Patient is intubated, sedated with propofol 50 mcg/kg/min. Patient is comatose with GCS of 3. Pupils are equal, round, but nonreactive. Oculocephalics absent. Corneals absent. No response to painful stimuli. Deep tendon reflexes are absent. Per nursing staff, with sedation holiday yesterday, patient had weak gag and cough. No obvious seizure-like activity noted. - Labs CBC & Chem 7: 09/29/23 05:11 09/29/23 05:11 Labs: Abnormal Lab Results - Last 24 Hours (Table) 09/27/23 09/27/23 09/28/23 Range/Units 17:54 23:44 03:35 WBC 16.7 H (3.8-10.6) k/uL Neutrophils # 14.3 H (1.3-7.7) k/uL ABG pO2 (83-108) mmHg Sodium (137-145) mmol/L Chloride (98-107) mmol/L BUN (9-20) mg/dL Creatinine (0.66-1.25) mg/dL Glucose (74-99) mg/dL POC Glucose (mg/dL) 114 H 125 H (70-110) mg/dL Calcium (8.4-10.2) mg/dL 09/28/23 09/28/23 09/28/23 Range/Units 03:35 05:20 05:32 WBC (3.8-10.6) k/uL Neutrophils # (1.3-7.7) k/uL ABG pO2 82 L (83-108) mmHg Sodium 135 L (137-145) mmol/L Chloride 109 H (98-107) mmol/L BUN 26 H (9-20) mg/dL Creatinine 1.45 H (0.66-1.25) mg/dL Glucose 147 H (74-99) mg/dL POC Glucose (mg/dL) 147 H (70-110) mg/dL Calcium 8.1 L (8.4-10.2) mg/dL 09/28/23 Range/Units 11:38 WBC (3.8-10.6) k/uL Neutrophils # (1.3-7.7) k/uL ABG pO2 (83-108) mmHg Sodium (137-145) mmol/L Chloride (98-107) mmol/L BUN (9-20) mg/dL Creatinine (0.66-1.25) mg/dL Glucose (74-99) mg/dL POC Glucose (mg/dL) 116 H (70-110) mg/dL Calcium (8.4-10.2) mg/dL Microbiology - Last 24 Hours (Table) 09/27/23 03:25 Gram Stain - Preliminary Sputum Sputum Culture - Preliminary Assessment and Plan Assessment: * Cardiac arrest (PEA followed by [facility] tach) with prolonged downtime. As per review of electronic records and EMS flowsheet, it appears downtime was at least 25 minutes. * Patient comatose, probable anoxic encephalopathy. * Acute non-ST elevated PR, status post stenting to the LAD. * Ventilator dependent respiratory failure, on mechanical ventilation. * Probable aspiration pneumonia * Hypertension * Gout * Morbid obesity Plan: * Patient continues to be comatose 48 hours postcardiac arrest. * CT head was performed. It revealed patchy periventricular white matter ischemic type changes. Follow-up MRI can be performed as clinically indicat ed. I personally reviewed CT head, agree with the findings. There is suspicious patchy periventricular white matter, which could be from small vessel disease, although may be related to cardiac arrest/anoxic encephalopathy. * Repeat CT head in the morning. * EEG was performed, which apparently only showed slowing of mild to moderate degree. This is suggestive of generalized cerebral dysfunction as can be seen with toxic metabolic encephalopathy. No epileptiform activity was seen. Alpha coma can be associated with cardiac arrest. Follow-up EEG recommended, if clinically indicated. * Patient has developed pneumonia, currently on Zosyn. * Patient is status post cardiac stenting, currently on Brilinta 90 mg twice daily and aspirin 81 mg daily. Continue Lipitor 80 mg. * Other medical management as per IM and other specialties on board. * DVT prophylaxis: Patient on Lovenox 40 mg SQ twice daily. * We will follow clinically. Discussed with patient's and the nursing staff in detail.
[2023-09-29] MEDS: ARTIFICIAL TEARS-HYPROMELLOSE DROPS 15 ML BTL BOTH EYES SCH (13:35)
[2023-09-29] MEDS: ARTIFICIAL TEARS OINTMENT 3.5 GM TUBE BOTH EYES SCH (13:36)
--- NOTE | 2023-09-29 15:07 | P.PN ---
Subjective Progress Note Date: 09/29/23 (seen at 1046) Patient is a 62-year-old male with known gout, hypertension, and morbid obesity who presented to the ER with CPR in progress. Patient had hospital arrest. Patient was seen by cardiology in the emergency department and was diagnosed with possible ST segment elevation myocardial infarction and was taken directly to the [facility] where he was found to have an 80% mid LAD lesion, 60 to 70% distal LAD lesion, 30% lesion of the left circumflex, and 50 to 60% lesion of the RCA. Patient underwent stenting of the mid LAD. Dual antiplatelet medications and aggressive risk factor modification were recommended. He was transferred to the ICU. Pulmonary critical care were consulted. Patient was noted to be in atrial flutter with slow ventricular response. He was started on tube feedings. He underwent an echocardiogram which demonstrated globally decreased contractility with ejection fraction 35 to 40%. Neurology was consulted. Patient was noted to have significant secretions and a fever and therefore Zosyn was empirically added. Patient underwent right radial art line placement on 09/27/2023 and subsequently had a left femoral triple-lumen catheter placed on 09/28/2023. He also underwent bronchial alveolar lavage secondary to under replacement of ET 2 and increased secretions. On attempting of weaning trial on 09/29/2023 patient became tachycardic and hypoxic. He underwent EEG which showed generalized cerebral dysfunction and neurology was consulted. Patient seen and examined at bedside. Unresponsive. Discussed with nursing. Patient continues to spike fevers overnight. Today during weaning trial patient became tachypneic and had an episode where he was asynchronous with the vent and became hypoxic. Patient has had difficulty recovering and continues with SpO2 88%. Vital signs reviewed General toxic, ill-appearing, mild distress appears at stated age Cardiovascular: S1S2 reg, no murmur Lungs: Coarse breath sounds bilateral, no rhonchi, no rales, no accessory muscle use, on vent Abdominal: Soft, nontender to palpation, no guarding Ext: No gross muscle atrophy, no edema b/l lower extremities, no contractures Neuro: Unresponsive on vent, breathing over Psych: Currently sedated with propofol Assessment/Plan: [id number] arrest Non-ST segment elevated myocardial infarction Ischemic cardiomyopathy, ejection fraction 35 to 40% Acute encephalopathy, possible anoxic Acute Hypoxic respiraotry Failure secondary to above Transient A. flutter, 1 episode Hypertension -Cardiology note reviewed: Poor overall prognosis, further recommendations to follow. -Pulmonary note reviewed: Continue with Zosyn, await BAL results, managing vent and weaning -Neurology note reviewed:-Patient continues to be comatose 48 hours after cardiac arrest will follow clinically. -Aspirin 81 mg daily, Ticagrelor 90 mg twice daily, Lipitor 80 mg daily, Coreg 6.25 mg twice daily, lisinopril 20 mg twice daily -Patient underwent bronch with BAL on 09/28/2023 -EEG demonstrated generalized cerebral dysfunction Fevers with increased sputum production, possible aspiration pneumonia -Zosyn 3.375 mg IV piggyback every 8 hours -Follow chest x-ray -Await sputum culture -Check urinalysis -Check blood cultures -Patient with continued fevers Prediabetes with A1c 6.4 Class 3 obesity with BMI 47.7 -Sliding scale insulin -Follow blood sugars -Likely would benefit from Farxiga given cardiomyopathy on discharge Transaminitis, suspect ischemic -Repeat CMP in a.m. Imaging: X-rays reviewed by myself shows cardiomegaly with scant bilateral pleural eff usions Data Review: Labs reviewed today include CBC and basic metabolic profile which are remarkable for white blood cell count 24.1, chloride 112, BUN 21, creatinine 1.21, and glucose of 149. DVT prophylaxis: D/C heparin start lovenox 40 mg SC BID due to BMI Anticipated discharge date: Pending Clinincal course Anticipated discharge place: Pending Clinincal course This dictation was prepared using [employer] voice recognition software. Though every attempt is made to correct errors during dictation some may still exist. Objective - Vital Signs Vital signs: Vital Signs Temp 99.2 F 09/29/23 12:00 Pulse 70 09/29/23 15:00 Resp 18 09/29/23 15:00 BP 114/72 09/29/23 07:30 Pulse Ox 91 L 09/29/23 15:00 FiO2 70 09/29/23 12:24 Intake & Output 09/28/23 09/29/23 09/29/23 18:59 06:59 18:59 Intake Total 1999.573 3021.858 1419.92 Output Total 1325 773 660 Balance 988.976 2844.858 759.92 Weight 166 kg 164 kg Intake: IV 1331 1498 841 Piperacillin-Tazobactam 3 75 25 100 .375 gm In Sodium Chloride 0.9% 100 ml @ 25 mls/hr IVPB Q8HR [facility] Rx# :[id number] Pressure Bag 36 33 21 Sodium Chloride 0.9% 1, 1000 1200 700 000 ml @ 100 mls/hr IV . Q10H [facility] Rx#:[id number] Sodium Chloride 0.9% 1, 220 240 20 000 ml @ 20 mls/hr IV . Q24H [facility] Rx#:[id number] Intake, IV Titration 579.573 635.858 224.92 Amount Cisatracurium 200 mg In 4.92 Sodium Chloride 0.9% 180 ml @ 1 MCG/KG/MIN 9.84 mls/hr IV .[id number] [facility] Rx #:[id number] Piperacillin-Tazobactam 3 100 .375 gm In Sodium Chloride 0.9% 100 ml @ 25 mls/hr IVPB Q8HR [facility] Rx# :[id number] Sodium Chloride 0.9% 1, 20 000 ml @ 20 mls/hr IV . Q24H [facility] Rx#:[id number] propofoL 1,000 mg In 579.573 535.858 200 Empty Bag 1 bag @ 15 MCG/ KG/MIN 14.85 mls/hr IV . Q6H45M [facility] Rx#:[id number] Tube Feeding 90 798 294 Other 90 60 Output: Urine 1325 773 660 Other: Voiding Method Indwelling Catheter Indwelling Catheter Indwelling Catheter ABP, PAP, CO, CI - Last Documented Arterial Blood Pressure 133/67 - Labs CBC & Chem 7: 09/29/23 05:11 09/29/23 05:11 Labs: Abnormal Lab Results - Last 24 Hours (Table) 09/28/23 09/28/23 09/28/23 Range/Units 11:20 17:43 23:57 WBC (3.8-10.6) k/uL RBC (4.30-5.90) m/uL Hgb (13.0-17.5) gm/dL Neutrophils # (1.3-7.7) k/uL Monocytes # (0-1.0) k/uL ABG pO2 (83-108) mmHg Chloride (98-107) mmol/L BUN (9-20) mg/dL Creatinine (0.66-1.25) mg/dL Glucose (74-99) mg/dL POC Glucose (mg/dL) 149 H 164 H (70-110) mg/dL Calcium (8.4-10.2) mg/dL Urine Protein (Negative) Urine Blood (Negative) Ur Leukocyte Esterase (Negative) Urine RBC (0-5) /hpf Urine WBC (0-5) /hpf Ur Squamous Epith Cells (0-4) /hpf Amorphous Sediment (None) /hpf Urine Mucus (None) /hpf Fluid Appearance Turbid A (Clear) 09/29/23 09/29/23 09/29/23 Range/Units 05:11 05:11 05:15 WBC 24.1 H (3.8-10.6) k/uL RBC 4.27 L (4.30-5.90) m/uL Hgb 12.8 L (13.0-17.5) gm/dL Neutrophils # 20.8 H (1.3-7.7) k/uL Monocytes # 1.4 H (0-1.0) k/uL ABG pO2 77 L (83-108) mmHg Chloride 112 H (98-107) mmol/L BUN 21 H (9-20) mg/dL Creatinine 1.29 H (0.66-1.25) mg/dL Glucose 149 H (74-99) mg/dL POC Glucose (mg/dL) (70-110) mg/dL Calcium 8.2 L (8.4-10.2) mg/dL Urine Protein (Negative) Urine Blood (Negative) Ur Leukocyte Esterase (Negative) Urine RBC (0-5) /hpf Urine WBC (0-5) /hpf Ur Squamous Epith Cells (0-4) /hpf Amorphous Sediment (None) /hpf Urine Mucus (None) /hpf Fluid Appearance (Clear) 09/29/23 09/29/23 09/29/23 Range/Units 05:37 10:55 11:51 WBC (3.8-10.6) k/uL RBC (4.30-5.90) m/uL Hgb (13.0-17.5) gm/dL Neutrophils # (1.3-7.7) k/uL Monocytes # (0-1.0) k/uL ABG pO2 (83-108) mmHg Chloride (98-107) mmol/L BUN (9-20) mg/dL Creatinine (0.66-1.25) mg/dL Glucose (74-99) mg/dL POC Glucose (mg/dL) 156 H 164 H (70-110) mg/dL Calcium (8.4-10.2) mg/dL Urine Protein 1+ H (Negative) Urine Blood Moderate H (Negative) Ur Leukocyte Esterase Moderate H (Negative) Urine RBC 6 H (0-5) /hpf Urine WBC 34 H (0-5) /hpf Ur Squamous Epith Cells 16 H (0-4) /hpf Amorphous Sediment Rare H (None) /hpf Urine Mucus Rare H (None) /hpf Fluid Appearance (Clear) Microbiology - Last 24 Hours (Table) 09/27/23 03:25 Gram Stain - Final Sputum Sputum Culture - Final 09/28/23 11:20 Gram Stain - Preliminary Bronchoalviolar Lavage - Right
[2023-09-29] MEDS: HYDROmorphone 1 MG/ML 1 ML SYRINGE IVP PRN (15:11)
[2023-09-29 17:39] LABS: Glucose,Whole Blood 146 mg/dL (70-110)
[2023-09-29] MEDS: ENOXAPARIN 40 MG/0.4 ML SYRINGE SQ SCH (20:04)
[2023-09-29 23:02] LABS: Glucose,Whole Blood 152 mg/dL (70-110)
--- NOTE | 2023-09-29 23:16 | XR ---
EXAM: XR chest 1V portable CLINICAL INDICATION:Male, 62 years old with history of OG tube placement; [facility] COMPARISON: 09/29/2023 10:28 AM before TECHNIQUE: Chest single view. FINDINGS: Difficult exam due to patient's body habitus. ET tube tip appears about 3.7 cm above the diamante. OG t ube, courses over the mediastinum and extends into the left upper quadrant likely terminating over th e proximal gastric body. Monitor leads over the chest. Lung volumes are further diminished, partially obscuring the cardiomediastinum however the heart appe ars similarly moderately enlarged. Mildly prominent mediastinum. Mild pulmonary vascular congestion. Bibasilar opacities appear slightly increased, likely compressive atelectasis with small to moderate pleural effusions. No visible pneumothorax. No acute osseous abnormality is shown. IMPRESSION: 1. ET tube appears in satisfactory position. 2. OG tube appears to terminate over the region of the proximal gastric body. Recommend several cent imeters of additional advancement and repeat exam to confirm tip placement. 3. Bibasilar opacities appear slightly increased, likely atelectasis with small to moderate pleural effusions.
--- NOTE | 2023-09-30 00:55 | XR ---
EXAM: XR Chest, 1 View CLINICAL HISTORY: ITS.REASON XR Reason: OGT placement TECHNIQUE: Frontal view of the chest. COMPARISON: 09/29/23 at 1024 hrs. FINDINGS/IMPRESSION: 1. Limited by body habitus. 2. Enteric tube appears to extend to the upper stomach. 3. Endotracheal tube 4.3 cm from the diamante. 4. No change in cardiomegaly, pleural effusions, and suspected pulmonary edema.
[2023-09-30 04:46] LABS: HCT 38.5 % (39.0-53.0); HGB 12.1 gm/dL (13.0-17.5); Hypochromasia Slight; MCH 30.2 pg (25.0-35.0); MCHC 31.3 g/dL (31.0-37.0); MCV 96.4 fL (80.0-100.0); Mean Platelet Volume 9.9; Platelet Count 184 k/uL (150-450); RDW 13.7 % (11.5-15.5); WBC 19.9 k/uL (3.8-10.6)
[2023-09-30 04:55] LABS: ALT 53 U/L (4-49); AST 65 U/L (17-59); African American GFR (CKD) 53 (>60 ml/min/1.73 sqM); Albumin 2.7 g/dL (3.5-5.0); Alkaline Phosphatase 74 U/L (38-126); Anion Gap 1 mmol/L; Blood Urea Nitrogen 25 mg/dL (9-20); Calcium 8.3 mg/dL (8.4-10.2); Carbon Dioxide 26 mmol/L (22-30); Chloride 112 mmol/L (98-107); Glucose 135 mg/dL (74-99); Magnesium 1.9 mg/dL (1.6-2.3); Non-African American GFR(CKD) 46 (>60 ml/min/1.73 sqM); Phosphorus 4.2 mg/dL (2.5-4.5); Potassium 4.3 mmol/L (3.5-5.1); Sodium 139 mmol/L (137-145); Total Bilirubin 1.2 mg/dL (0.2-1.3); Total Protein 5.3 g/dL (6.3-8.2)
[2023-09-30 05:22] LABS: Glucose,Whole Blood 146 mg/dL (70-110)
[2023-09-30] MEDS: MAGNESIUM SULFATE-D5W PMX 1 GM in DEXTROSE/WATER 1 100ML.BAG IVPB ONE (05:30)
[2023-09-30 05:35] LABS: Prothrombin Time 11.1 sec (10.0-12.5)
[2023-09-30 06:43] LABS: ABG Base Excess -0.8 mmol/L; ABG HCO3 26 mmol/L (21-25); ABG PCO2 53 mmHg (35-45); ABG PO2 92 mmHg (83-108); Allen Test Performed? Yes
--- NOTE | 2023-09-30 10:09 | P.PN ---
Subjective Progress Note Date: 09/30/23 This is Junior Beard NP, I'm dictating on behalf of Dr. Westfall's H&P and A&P. Patient was examined. Patient is a 62-year-old male who presented to the hospital with an NSTEMI with PEA with associated ventricular tachycardia postresuscitation. Patient remains intubated and sedated without much evidence of recovery. Currently unstable to go down for CT scan to evaluate for further anoxia. From a cardiac standpoint the patient appears stable at this time. Prognosis is poor. GENERAL: Well-appearing, well-nourished and in no acute distress. NECK: Supple without JVD or thyromegaly. LUNGS: Breath sounds clear to auscultation bilaterally. Respiration equal and unlabored. No wheezes, rales or rhonchi. HEART: Regular rate and rhythm without murmurs, rubs or gallops. S1 and S2 heard. EXTREMITIES: Normal range of motion, no edema. No clubbing or cyanosis. Peripheral pulses intact and strong. VITALS: Temp 100.1, pulse 62, respirations 18, blood pressure 118/54, O2 saturation 93% on ventilation TELEMETRY: Sinus mechanism LABS: White count 19.9, hemoglobin 12.1, platelets 194, sodium 139, potassium 4.3, BUN 25, creatinine 1.58, magnesium 1.9 IMPRESSION: 1. Cardiac arrest, PEA followed by ventricular tachycardia 2. Non-ST elevated myocardial infarction 3. Status post stenting to the LAD 4. Ischemic cardiomyopathy, EF 35 to 40% with inferior hypokinesis 5. History of hypertension 6. History of dyslipidemia 7. Morbid obesity, BMI 48 PLAN: Continue supportive treatment. Patient likely experiencing anoxic brain injury, poor prognosis. Further recommendations based on patient's clinical course. Objective - Vital Signs Vital signs: Vital Signs Temp 100.1 F H 09/30/23 04:00 Pulse 62 09/30/23 07:00 Resp 18 09/30/23 07:00 BP 101/58 09/30/23 03:00 Pulse Ox 93 L 09/30/23 07:00 FiO2 70 09/30/23 07:42 Intake & Output 09/29/23 09/30/23 09/30/23 18:59 06:59 18:59 Intake Total 2485.52 2304.840 420.50 Output Total 1220 720 50 Balance 1265.52 1584.840 370.50 Weight 169 kg Intake: IV 1356 1336 103 Piperacillin-Tazobactam 3 100 100 .375 gm In Sodium Chloride 0.9% 100 ml @ 25 mls/hr IVPB Q8HR [facility] Rx# :[id number] Pressure Bag 36 36 3 Sodium Chloride 0.9% 1, 1200 1200 100 000 ml @ 100 mls/hr IV . Q10H [facility] Rx#:[id number] Sodium Chloride 0.9% 1, 20 000 ml @ 20 mls/hr IV . Q24H [facility] Rx#:[id number] Intake, IV Titration 577.52 728.840 275.50 Amount Cisatracurium 200 mg In 4.92 339.89 104.55 Sodium Chloride 0.9% 180 ml @ 1 MCG/KG/MIN 9.84 mls/hr IV .[id number] [facility] Rx #:[id number] Piperacillin-Tazobactam 3 100 .375 gm In Sodium Chloride 0.9% 100 ml @ 25 mls/hr IVPB Q8HR [facility] Rx# :[id number] Sodium Chloride 0.9% 1, 100 20 000 ml @ 20 mls/hr IV . Q24H [facility] Rx#:[id number] propofoL 1,000 mg In 372.6 368.950 170.95 Empty Bag 1 bag @ 15 MCG/ KG/MIN 14.85 mls/hr IV . Q6H45M [facility] Rx#:[id number] Tube Feeding 462 210 42 Other 90 30 Output: Urine 1220 720 50 Other: Voiding Method Indwelling Catheter Indwelling Catheter ABP, PAP, CO, CI - Last Documented Arterial Blood Pressure 118/54 - Labs CBC & Chem 7: 09/30/23 04:16 09/30/23 04:16 Labs: Abnormal Lab Results - Last 24 Hours (Table) 09/29/23 09/29/23 09/29/23 Range/Units 10:55 11:51 17:37 WBC (3.8-10.6) k/uL RBC (4.30-5.90) m/uL Hgb (13.0-17.5) gm/dL Hct (39.0-53.0) % ABG pH (7.35-7.45) ABG pCO2 (35-45) mmHg ABG HCO3 (21-25) mmol/L Chloride (98-107) mmol/L BUN (9-20) mg/dL Creatinine (0.66-1.25) mg/dL Glucose (74-99) mg/dL POC Glucose (mg/dL) 164 H 146 H (70-110) mg/dL Calcium (8.4-10.2) mg/dL AST (17-59) U/L ALT (4-49) U/L Total Protein (6.3-8.2) g/dL Albumin (3.5-5.0) g/dL Urine Protein 1+ H (Negative) Urine Blood Moderate H (Negative) Ur Leukocyte Esterase Moderate H (Negative) Urine RBC 6 H (0-5) /hpf Urine WBC 34 H (0-5) /hpf Ur Squamous Epith Cells 16 H (0-4) /hpf Amorphous Sediment Rare H (None) /hpf Urine Mucus Rare H (None) /hpf 09/29/23 09/30/23 09/30/23 Range/Units 23:00 04:16 04:16 WBC 19.9 H (3.8-10.6) k/uL RBC 4.00 L (4.30-5.90) m/uL Hgb 12.1 L (13.0-17.5) gm/dL Hct 38.5 L (39.0-53.0) % ABG pH (7.35-7.45) ABG pCO2 (35-45) mmHg ABG HCO3 (21-25) mmol/L Chloride 112 H (98-107) mmol/L BUN 25 H (9-20) mg/dL Creatinine 1.58 H (0.66-1.25) mg/dL Glucose 135 H (74-99) mg/dL POC Glucose (mg/dL) 152 H (70-110) mg/dL Calcium 8.3 L (8.4-10.2) mg/dL AST 65 H (17-59) U/L ALT 53 H (4-49) U/L Total Protein 5.3 L (6.3-8.2) g/dL Albumin 2.7 L (3.5-5.0) g/dL Urine Protein (Negative) Urine Blood (Negative) Ur Leukocyte Esterase (Negative) Urine RBC (0-5) /hpf Urine WBC (0-5) /hpf Ur Squamous Epith Cells (0-4) /hpf Amorphous Sediment (None) /hpf Urine Mucus (None) /hpf 09/30/23 09/30/23 Range/Units 05:20 06:42 WBC (3.8-10.6) k/uL RBC (4.30-5.90) m/uL Hgb (13.0-17.5) gm/dL Hct (39.0-53.0) % ABG pH 7.30 L (7.35-7.45) ABG pCO2 53 H (35-45) mmHg ABG HCO3 26 H (21-25) mmol/L Chloride (98-107) mmol/L BUN (9-20) mg/dL Creatinine (0.66-1.25) mg/dL Glucose (74-99) mg/dL POC Glucose (mg/dL) 146 H (70-110) mg/dL Calcium (8.4-10.2) mg/dL AST (17-59) U/L ALT (4-49) U/L Total Protein (6.3-8.2) g/dL Albumin (3.5-5.0) g/dL Urine Protein (Negative) Urine Blood (Negative) Ur Leukocyte Esterase (Negative) Urine RBC (0-5) /hpf Urine WBC (0-5) /hpf Ur Squamous Epith Cells (0-4) /hpf Amorphous Sediment (None) /hpf Urine Mucus (None) /hpf Microbiology - Last 24 Hours (Table) 09/28/23 11:20 Gram Stain - Final Bronchoalviolar Lavage - Right Bronchial Washings Culture - Final 09/28/23 11:20 Acid Fast Bacilli Smear - Preliminary Bronchoalviolar Lavage - Right 09/27/23 03:25 Gram Stain - Final Sputum Sputum Culture - Final
--- NOTE | 2023-09-30 10:50 | P.PN ---
Subjective Progress Note Date: 09/29/23 Patient was seen for a follow-up. Patient continues to be comatose. Per nursing report patient propofol was shutdown for about 35-40 minutes. As per nursing report, patient did open his eyes, but was not tracking, not following directions. Only once she saw patient flexed her left foot. Otherwise no meaningful response. Patient soon developed respiratory distress, FiO2 was increased. Patient also started on Nimbex drip at 2 g/kg per minute. Now also back on propofol 50 mcg/kg per minute. Patient continues to be comatose. Objective - Vital Signs Vital signs: Vital Signs Temp 99.2 F 09/29/23 12:00 Pulse 70 09/29/23 15:00 Resp 18 09/29/23 15:00 BP 114/72 09/29/23 07:30 Pulse Ox 91 L 09/29/23 15:00 FiO2 70 09/29/23 12:24 Intake & Output 09/28/23 09/29/23 09/29/23 18:59 06:59 18:59 Intake Total 2000.573 3021.858 1822.52 Output Total 1325 773 960 Balance 394.172 8323.858 862.52 Weight 166 kg 164 kg Intake: IV 1331 1498 1047 Piperacillin-Tazobactam 3 75 25 100 .375 gm In Sodium Chloride 0.9% 100 ml @ 25 mls/hr IVPB Q8HR [facility] Rx# :[id number] Pressure Bag 36 33 27 Sodium Chloride 0.9% 1, 1000 1200 900 000 ml @ 100 mls/hr IV . Q10H [facility] Rx#:[id number] Sodium Chloride 0.9% 1, 220 240 20 000 ml @ 20 mls/hr IV . Q24H [facility] Rx#:[id number] Intake, IV Titration 579.573 635.858 337.52 Amount Cisatracurium 200 mg In 4.92 Sodium Chloride 0.9% 180 ml @ 1 MCG/KG/MIN 9.84 mls/hr IV .[id number] [facility] Rx #:[id number] Piperacillin-Tazobactam 3 100 .375 gm In Sodium Chloride 0.9% 100 ml @ 25 mls/hr IVPB Q8HR [facility] Rx# :[id number] Sodium Chloride 0.9% 1, 60 000 ml @ 20 mls/hr IV . Q24H [facility] Rx#:[id number] propofoL 1,000 mg In 579.573 535.858 272.6 Empty Bag 1 bag @ 15 MCG/ KG/MIN 14.85 mls/hr IV . Q6H45M [facility] Rx#:[id number] Tube Feeding 90 798 378 Other 90 60 Output: Urine 1325 773 960 Other: Voiding Method Indwelling Catheter Indwelling Catheter Indwelling Catheter ABP, PAP, CO, CI - Last Documented Arterial Blood Pressure 133/67 - Exam Patient is intubated, sedated with propofol 50 mcg/kg/min. now also on Nimbex 2 mcg/kg per minute. Patient is comatose with GCS of 3. Pupils are equal, round, but nonreactive. Oculocephalics absent. Corneals absent. No response to painful stimuli. Deep tendon reflexes are absent. Per nursing staff, with sedation holiday yesterday, patient had weak gag and cough. No obvious seizure-like activity noted. - Labs CBC & Chem 7: 09/30/23 04:16 09/30/23 04:16 Labs: Abnormal Lab Results - Last 24 Hours (Table) 09/28/23 09/28/23 09/28/23 Range/Units 11:20 17:43 23:57 WBC (3.8-10.6) k/uL RBC (4.30-5.90) m/uL Hgb (13.0-17.5) gm/dL Neutrophils # (1.3-7.7) k/uL Monocytes # (0-1.0) k/uL ABG pO2 (83-108) mmHg Chloride (98-107) mmol/L BUN (9-20) mg/dL Creatinine (0.66-1.25) mg/dL Glucose (74-99) mg/dL POC Glucose (mg/dL) 149 H 164 H (70-110) mg/dL Calcium (8.4-10.2) mg/dL Urine Protein (Negative) Urine Blood (Negative) Ur Leukocyte Esterase (Negative) Urine RBC (0-5) /hpf Urine WBC (0-5) /hpf Ur Squamous Epith Cells (0-4) /hpf Amorphous Sediment (None) /hpf Urine Mucus (None) /hpf Fluid Appearance Turbid A (Clear) 09/29/23 09/29/23 09/29/23 Range/Units 05:11 05:11 05:15 WBC 24.1 H (3.8-10.6) k/uL RBC 4.27 L (4.30-5.90) m/uL Hgb 12.8 L (13.0-17.5) gm/dL Neutrophils # 20.8 H (1.3-7.7) k/uL Monocytes # 1.4 H (0-1.0) k/uL ABG pO2 77 L (83-108) mmHg Chloride 112 H (98-107) mmol/L BUN 21 H (9-20) mg/dL Creatinine 1.29 H (0.66-1.25) mg/dL Glucose 149 H (74-99) mg/dL POC Glucose (mg/dL) (70-110) mg/dL Calcium 8.2 L (8.4-10.2) mg/dL Urine Protein (Negative) Urine Blood (Negative) Ur Leukocyte Esterase (Negative) Urine RBC (0-5) /hpf Urine WBC (0-5) /hpf Ur Squamous Epith Cells (0-4) /hpf Amorphous Sediment (None) /hpf Urine Mucus (None) /hpf Fluid Appearance (Clear) 09/29/23 09/29/23 09/29/23 Range/Units 05:37 10:55 11:51 WBC (3.8-10.6) k/uL RBC (4.30-5.90) m/uL Hgb (13.0-17.5) gm/dL Neutrophils # (1.3-7.7) k/uL Monocytes # (0-1.0) k/uL ABG pO2 (83-108) mmHg Chloride (98-107) mmol/L BUN (9-20) mg/dL Creatinine (0.66-1.25) mg/dL Glucose (74-99) mg/dL POC Glucose (mg/dL) 156 H 164 H (70-110) mg/dL Calcium (8.4-10.2) mg/dL Urine Protein 1+ H (Negative) Urine Blood Moderate H (Negative) Ur Leukocyte Esterase Moderate H (Negative) Urine RBC 6 H (0-5) /hpf Urine WBC 34 H (0-5) /hpf Ur Squamous Epith Cells 16 H (0-4) /hpf Amorphous Sediment Rare H (None) /hpf Urine Mucus Rare H (None) /hpf Fluid Appearance (Clear) Microbiology - Last 24 Hours (Table) 09/27/23 03:25 Gram Stain - Final Sputum Sputum Culture - Final 09/28/23 11:20 Gram Stain - Preliminary Bronchoalviolar Lavage - Right Assessment and Plan Assessment: * Cardiac arrest (PEA followed by V. tach) with prolonged downtime. As per review of electronic records and EMS flowsheet, it appears downtime was at least 25 minutes. * Patient comatose, probable anoxic encephalopathy. * Acute non-ST elevated KS, status post stenting to the LAD. * Ventilator dependent respiratory failure, on mechanical ventilation. * Probable aspiration pneumonia * Hypertension * Gout * Morbid obesity Plan: * Patient underwent sedation holiday, and propofol was discontinued for 35-40 minutes. Per nursing report, patient opened his eyes, but was not tracking or following any directions. Now patient back on propofol 50 mcg/kg per minute as well as now on Nimbex 2 g/kg/min. Examination is very limited because of the above medication. * Initial CT head 09/27/2023 revealed patchy periventricular white matter ischemic type changes. Follow-up MRI can be performed as clinically indicated. I personally reviewed CT head, agree with the findings. There is suspicious patchy periventricular white matter, which could be from small vessel disease, although may be related to cardiac arrest/anoxic encephalopathy. * Await repeat CT head. Patient is stable to go to the CT. . * EEG was performed, which apparently only showed slowing of mild to moderate degree. This is suggestive of generalized cerebral dysfunction as can be seen with toxic metabolic encephalopathy. No epileptiform activity was seen. Alpha coma can be associated with cardiac arrest. Follow-up EEG recommended, if clinically indicated. * Repeat EEG on Sunday. * Patient has developed pneumonia, currently on Zosyn. * Patient is status post cardiac stenting, currently on Brilinta 90 mg twice daily and aspirin 81 mg daily. Continue Lipitor 80 mg. * Other medical management as per IM and other specialties on board. * DVT prophylaxis: Patient on Lovenox 40 mg SQ twice daily.
[2023-09-30] MEDS: FUROSEMIDE 10 MG/ML 4 ML VIAL IV STA (10:59)
[2023-09-30] MEDS ORDERED: VANCOMYCIN IV PER PHARMACY 1 EACH MISC MISCELLANE PRN (11:05)
--- NOTE | 2023-09-30 11:51 | US ---
EXAMINATION TYPE: US venous doppler duplex LE DATE OF EXAM: 09/30/2023 11:41 AM COMPARISON: NONE CLINICAL INDICATION: Male, 62 years old with history of Hypoxemia; hypoxemia SIDE PERFORMED: Bilateral TECHNIQUE: The lower extremity deep venous system is examined utilizing real time linear array sonog carlos with graded compression, doppler sonography and color-flow sonography. VESSELS IMAGED: Common Femoral Vein Deep Femoral Vein Femoral Vein Popliteal Vein Proximal Calf Veins The deep venous systems of both lower extremities from the common femoral remains to the proximal lucy f veins are patent and compressible with augmentable flow and with normal waveforms. IMPRESSION: No evidence of bilateral lower extremity DVT from the common femoral veins to the proximal calf veins
[2023-09-30 12:10] LABS: Glucose,Whole Blood 147 mg/dL (70-110)
[2023-09-30 12:35] VITALS: BP 96/52; RESP 20; TEMP 99.3
--- NOTE | 2023-09-30 13:00 | XR ---
EXAMINATION TYPE: XR chest 1V portable DATE OF EXAM: 09/30/2023 COMPARISON: 09/29/2023 HISTORY: Shortness of breath TECHNIQUE: Single frontal view of the chest is obtained. FINDINGS: ET tube is 5.1 cm above the diamante. There is an NG tube within the stomach. There has been no change in the bibasilar opacities IMPRESSION: Acute bilateral cardiopulmonary disease with no significant interval change compared to previous.
[2023-09-30] MEDS ORDERED: NOREPINEPHRINE 8 MG in SODIUM CHLORIDE 0.9% 250 ML IV SCH (13:15)
[2023-09-30] MEDS: VANCOMYCIN 2,500 MG in SODIUM CHLORIDE 0.9% 500 ML 500 ML IVPB SCH (13:19)
[2023-09-30] MEDS: methylPREDNISolone SOD SUCCI 125 MG/2 ML VIAL IV SCH (13:19)
--- NOTE | 2023-09-30 13:24 | P.PN ---
Subjective Progress Note Date: 09/30/23 Principal diagnosis: Cardiac arrest and anoxic brain injury Patient is a 62-year-old white male with past medical history significant for hypertension, obesity, and former tobacco smoker. Patient is currently intensive care unit, intubated and unable to provide any information. On review of the patient's EMR, the patient was an out of hospital cardiac arrest. He was apparently playing a board game on his phone, slumped over and became unresponsive. His then called 911. Patient was noted to have a V. tach/V- fib arrest by EMS. Estimated time before EMS arrival was 10 minutes, and did not provide CPR. ROSC was achieved in the field by EMS. May have had some ST elevation on initial EKG per EMS. On arrival to the emergency room, he was noted to be unresponsive after ROSC. The patient was intubated by the ER physician. Initial EKG done on arrival showed atrial flutter with slow ventricular rate, right bundle branch with Q waves inferiorly and ST depression in the lateral leads. Patient was emergently taken to the [facility], and was noted to have multivessel coronary artery disease including 80% stenosis of the mid LAD, 30% stenosis of the left circumflex, and 50 to 60% stenosis of the RCA. Patient did receive PCI/stenting of the mid LAD. He was then transferred to the intensive care unit in critical condition. I am evaluating this patient in room 262. He is intubated to the mechanical ventilator. Chest x-ray shows the endotracheal tube approximately 2.9 cm above the diamante. NG tube courses into the stomach. There is mild cardiomegaly and pulmonary vascular congestion. No effusions, pneumothoraces, focal infiltrates. Current ventilator settings include assist-control, respiratory rate 18, tidal volume 500, FiO2 60%, PEEP of 5. He is breathing above set rate in the mid 20s. ABGs done on the above- mentioned settings but an FiO2 of 100% had a PaO2 of 100, pCO2 46, pH of 7.37. He is sedated on propofol at 40 mcg/kg/min. Does not follow any commands. Unresponsive to painful stimuli at this time. Heart rhythm on bedside monitor appears first-degree AV block, with a heart rate of 60 bpm. Blood pressure is normotensive. He has received a total of 1.5 L normal saline bolus since arrival to the emergency room. Currently has normal saline infusing at 75 mL/h. No vasopressors have been required. Temperature currently 98.5 F. CBC on arrival: WBC count 18.9, hemoglobin 15.8, hematocrit 50.1, platelets 272. CMP o n arrival: Sodium 136, potassium 4.3, chloride 103, serum bicarb 21, BUN 18, creatinine 1.1, glucose 230. Lactic acid level 3.1 and down to 2.2. LFTs mildly elevated. Troponin 0.482 and 0.848 respectively. NT proBNP 2900. Patient's has already left and went home for the night. Patient was evaluated today on 09/28/2023, remains in the ICU, intubated and mechanically ventilated. He is presently on assist-control rate of 18 tidal volume 500 FiO2 50% PEEP of 8 ABG showed a pO2 of 82 pCO2 38 pH of 7.41. Patient still requiring propofol at 40 mcg/kg/min, IV fluid at 100 cc/h. CT of the brain showed white matter changes consistent with ischemic changes. EEG is pending, patient is being followed by neurology for what seems to be anoxic brain injury. Today we had issues with his endotracheal tube, patient underwent bronchoscopy and adjustment of the endotracheal tube advanced down to the area just above the diamante. Lavage of his lungs was performed since he had significant amount of secretions noted as well adjusting the endotracheal tube. Patient is on Zosyn empirically he did have a temp last night. Considering the patient has no good venous access, a right femoral triple-lumen catheter was also placed today. Neurologically the patient is about the same, no responses whatsoever, we will continue to have daily interruption of sedation and assessment of mental status, this will be evaluated again tomorrow. Patient is hemodynamically stable not requiring any pressors, remains on GI and DVT prophylaxis, and we addressed enteral feeding via nasogastric WBC count today is 16.7 hemoglobin 13.7 electrolytes are normal BUN is 26 creatinine 1.45 slightly rising compared to 1.21 yesterday's x-ray is showing bibasilar infiltrates, more so at the right lung base, hence Zosyn was initiated today. And lavage of lungs was performed today Patient was reevaluated today on 09/29/2023, patient is in the ICU, intubated and mechanically ventilated. Patient is on assist-control rate of 18 tidal volume 500 FiO2 50% and PEEP of 10 ABG showed a pO2 of 77 pCO2 39 pH of 7.40. Patient spiked a temp last night he had a temp of 102.8, patient was started empirically yesterday on Zosyn specially after noticing that the patient had significant purulent secretions from his bronchoscopy yesterday. Cultures are pending in the meantime the patient is on Zosyn. Patient is on propofol at 50 mcg/kg/min IV fluid at 20 cc/h he is on vital HP at 42 cc/h. No ventilator setting changes were done today, chest x-ray was reviewed, patient has adequate placement of the endotracheal tube., There is cardiomegaly and small bilateral pleural effusions noted. Endotracheal tube is 2.5 cm above the diamante. No clear-cut evidence of pneumonia although the patient is a potential set up for aspiration pneumonia. And he is being treated as such. Patient has positive fluid balance, may gently diurese the patient today. His urine output is excellent. Patient had sedation interruption yesterday and no neurological recovery is noted his EEG showed generalized ischemic cerebral dysfunction consistent with toxic metabolic encephalopathy. And consistent with anoxic brain injury Reevaluate today on 09/30/2023, patient remains intubated and mechanically ventilated, remains in the ICU, he is on assist-control rate of 18 tidal volume 500 FiO2 70% PEEP of 10 ABG showed a pO2 of 92 pCO2 53 pH of 7.30, hence the PEEP was increased to 12. And increased his rate up to 20 from 18. Patient remains on Nimbex at 2.0 mcg/kg/min propofol 50 mcg/kg/min 0.9 normal saline at 100 cc/h his vital HP 42 cc/h. Remains on Zosyn, remains on Lasix intermittently. Patient had issues with desaturation last night, hence his FiO2 was increased up to 70%. Today shortly after I rounded on the patient, I was asked to come back and see the patient, and they were having difficulty bagging the patient, he was suctioned, chest x-ray showed no significant change, hence I went ahead and performed bronchoscopy and cleaning of his airways but there was no significant mucous plugs. According to the respiratory therapist he may have suctioned the mucous plug while he was bagging him. Just prior to this, discussed with his at bedside his situation and his prognosis, and changed the CODE STATUS from full code to DNR CODE STATUS. In the meantime we are continuing present supportive care measures, his ventilator settings were adjusted after the bronchoscopy. He is now up to 100%, his tidal volume was increased to 550, kept him at a rate of 20 and the PEEP was increased to 12.WBC count today is 19.9 hemoglobin is 12 basic metabolic profile is normal BUN is 25 creatinine 1.58Normal, slightly worse compared to creatinine of yesterday 1.29. Chest x-ray today showed mostly bibasilar atelectasis, underlying pneumonia is not entirely ruled out. Small pleural effusions noted bilaterally Objective - Vital Signs Vital signs: Vital Signs Temp 99.3 F 09/30/23 08:00 Pulse 61 09/30/23 12:00 Resp 20 09/30/23 12:00 BP 96/52 09/30/23 12:00 Pulse Ox 93 L 09/30/23 12:00 FiO2 100 09/30/23 12:58 Intake & Output 09/29/23 09/30/23 09/30/23 18:59 06:59 18:59 Intake Total 2485.52 2304.840 1012.50 Output Total 1220 720 310 Balance 1265.52 1584.840 702.50 Weight 169 kg Intake: IV 1356 1336 695 Piperacillin-Tazobactam 3 100 100 100 .375 gm In Sodium Chloride 0.9% 100 ml @ 25 mls/hr IVPB Q8HR [facility] Rx# :[id number] Pressure Bag 36 36 15 Sodium Chloride 0.9% 1, 1200 1200 500 000 ml @ 100 mls/hr IV . Q10H [facility] Rx#:[id number] Sodium Chloride 0.9% 1, 20 80 000 ml @ 20 mls/hr IV . Q24H [facility] Rx#:[id number] Intake, IV Titration 577.52 728.840 275.50 Amount Cisatracurium 200 mg In 4.92 339.89 104.55 Sodium Chloride 0.9% 180 ml @ 1 MCG/KG/MIN 9.84 mls/hr IV .[id number] [facility] Rx #:[id number] Piperacillin-Tazobactam 3 100 .375 gm In Sodium Chloride 0.9% 100 ml @ 25 mls/hr IVPB Q8HR [facility] Rx# :[id number] Sodium Chloride 0.9% 1, 100 20 000 ml @ 20 mls/hr IV . Q24H [facility] Rx#:[id number] propofoL 1,000 mg In 372.6 368.950 170.95 Empty Bag 1 bag @ 15 MCG/ KG/MIN 14.85 mls/hr IV . Q6H45M [facility] Rx#:[id number] Tube Feeding 462 210 42 Other 90 30 Output: Urine 1220 720 310 Other: Voiding Method Indwelling Catheter Indwelling Catheter Indwelling Catheter ABP, PAP, CO, CI - Last Documented Arterial Blood Pressure 105/59 - Exam GENERAL EXAM:unresponsive, morbidly obese, ventilated, on mechanical ventilation, sedated and paralyzed. HEAD: Normocephalic and atraumatic EYES: Pupils approximately 1 mm in diameter, remain sluggish to light NOSE: Clear with pink turbinates. THROAT: No erythema or exudates. NECK: No masses, no JVD. CHEST: No chest wall deformity. LUNGS: Equal air entry with no crackles, rhonchi noted bilaterally CVS: S1 and S2 normal with no audible murmur, regular rhythm. No extra heart sounds ABDOMEN: No hepatosplenomegaly, active bowel sounds, no guarding or rigidity. SKIN: No rashes CENTRAL NERVOUS SYSTEM: Could not assess patient is sedated, and on Nimbex EXTREMITIES: There is trace of peripheral edema, clubbing, or cyanosis. Peripheral pulses are intact. - Labs CBC & Chem 7: 09/30/23 04:16 09/30/23 04:16 Labs: Abnormal Lab Results - Last 24 Hours (Table) 09/29/23 09/29/23 09/30/23 Range/Units 17:37 23:00 04:16 WBC 19.9 H (3.8-10.6) k/uL RBC 4.00 L (4.30-5.90) m/uL Hgb 12.1 L (13.0-17.5) gm/dL Hct 38.5 L (39.0-53.0) % ABG pH (7.35-7.45) ABG pCO2 (35-45) mmHg ABG HCO3 (21-25) mmol/L Chloride (98-107) mmol/L BUN (9-20) mg/dL Creatinine (0.66-1.25) mg/dL Glucose (74-99) mg/dL POC Glucose (mg/dL) 146 H 152 H (70-110) mg/dL Calcium (8.4-10.2) mg/dL AST (17-59) U/L ALT (4-49) U/L Total Protein (6.3-8.2) g/dL Albumin (3.5-5.0) g/dL 09/30/23 09/30/23 09/30/23 Range/Units 04:16 05:20 06:42 WBC (3.8-10.6) k/uL RBC (4.30-5.90) m/uL Hgb (13.0-17.5) gm/dL Hct (39.0-53.0) % ABG pH 7.30 L (7.35-7.45) ABG pCO2 53 H (35-45) mmHg ABG HCO3 26 H (21-25) mmol/L Chloride 112 H (98-107) mmol/L BUN 25 H (9-20) mg/dL Creatinine 1.58 H (0.66-1.25) mg/dL Glucose 135 H (74-99) mg/dL POC Glucose (mg/dL) 146 H (70-110) mg/dL Calcium 8.3 L (8.4-10.2) mg/dL AST 65 H (17-59) U/L ALT 53 H (4-49) U/L Total Protein 5.3 L (6.3-8.2) g/dL Albumin 2.7 L (3.5-5.0) g/dL 09/30/23 Range/Units 12:09 WBC (3.8-10.6) k/uL RBC (4.30-5.90) m/uL Hgb (13.0-17.5) gm/dL Hct (39.0-53.0) % ABG pH (7.35-7.45) ABG pCO2 (35-45) mmHg ABG HCO3 (21-25) mmol/L Chloride (98-107) mmol/L BUN (9-20) mg/dL Creatinine (0.66-1.25) mg/dL Glucose (74-99) mg/dL POC Glucose (mg/dL) 147 H (70-110) mg/dL Calcium (8.4-10.2) mg/dL AST (17-59) U/L ALT (4-49) U/L Total Protein (6.3-8.2) g/dL Albumin (3.5-5.0) g/dL Microbiology - Last 24 Hours (Table) 09/28/23 11:20 Gram Stain - Final Bronchoalviolar Lavage - Right Bronchial Washings Culture - Final 09/28/23 11:20 Acid Fast Bacilli Smear - Preliminary Bronchoalviolar Lavage - Right 09/27/23 03:25 Gram Stain - Final Sputum Sputum Culture - Final Assessment and Plan Assessment: Impression: Out of hospital cardiac arrest and suspected ACS, estimated downtime prior to EMS arrival was approximately 10 minutes, did not perform any CPR. Rhythm noted as V. tach versus V-fib arrest per EMS. ROSC was ultimately achieved in the field, and patient was intubated on arrival to the emergency department, there were concerns for airway protection as the patient was unresponsive. After ROSC, concerns for some potential ST elevation in route by EMS. Patient was emergently taken to the [facility] on arrival, and received 1 stent to the mid LAD. Strongly suspect anoxic brain injury I believe the patient must have had a longer downtime then mentioned earlier Acute hypoxemic respiratory failure, secondary to above, intubated to the mechanical ventilator. Coronary artery disease, heart catheterization noted 80% stenosis of the mid LAD, 30% stenosis of the left circumflex, and 50 to 60% stenosis of the RCA. Patient did receive PCI/stenting of the mid LAD. Leukocytosis, likely reactive to cardiac arrest, patient clearly has purulent tracheobronchitis based on bronchoscopy findings, underlying aspiration pneumonia is also suspected. Mild transaminitis, likely secondary to cardiac arrest and hypoperfusion Altered mental status, rule out anoxic brain injury History of hypertension History of obesity with a BMI of 48 kg/m History of former tobacco dependence History of gout History of BPH Status post bronchoscopy/repeat bronchoscopy on 09/30/2023, mostly to clear mucus secretions Recommendation: Continue ventilatory support Continue antibiotics/Zosyn Continue medical therapy for his underlying coronary artery disease, status post stent of mid LAD Continue GI DVT prophylaxis Continue nutritional support/enteral feeding Reviewed EEG results and CT of the brain results consistent with anoxic brain injury Neurology is following regarding his anoxic brain injury Check cultures from BAL, cultures have been nondiagnostic patient had mostly normal respiratory trini Overall prognosis is extremely poor and guarded considering his anoxic brain injury family updated on his condition, and CODE STATUS was changed to DNR CODE STATUS Continue antiplatelet therapy as ordered by cardiology Still critically ill Considering the patient is developing worsening O2 saturations and hypoxia, I am recommending that we start the patient on Lovenox 80 mg SQ twice daily, his venous Doppler is negative, but the patient is not stable enough to be sent down for a CT angiogram of the chest, and his kidney functioning is quite concerning. Will treat empirically with Lovenox, and avoid CT angiogram of the chest. Patient may eventually need a CT of the head, and again he is not stable enough for repeat CT of the head at this point. was updated on his condition and she is very well aware of his poor prognosis. Critical care time is over 30 minutes, not including time spent on procedures/bronchoscopy Will continue to follow Time with Patient: Greater than 30
[2023-09-30 14:58] VITALS: PULSE 59
[2023-09-30] MEDS ORDERED: GLYCOPYRROLATE 0.2 MG/ML 2 ML VIAL IVP PRN (15:00)
[2023-09-30] MEDS ORDERED: MORPHINE SULFATE 2 MG/ML SYRINGE IV PRN (15:00)
[2023-09-30] MEDS ORDERED: HALOPERIDOL LACTATE 5 MG/ML 1 ML VIAL IM PRN (15:00)
[2023-09-30] MEDS ORDERED: ACETAMINOPHEN SUPPOSITORY 650 MG SUPP RECTAL PRN (15:00)
[2023-09-30] MEDS ORDERED: LORazepam 1 MG/0.5 ML VIAL IV PRN (15:00)
[2023-09-30] MEDS ORDERED: DRY MOUTH SPRAY 44.3 SPRAY/44.3 ML SPRAY MUCOUS MEM PRN (15:00)
[2023-09-30] MEDS: IPRATROPIUM-ALBUTEROL 3 ML NEB INHALATION SCH (15:17)
[2023-09-30] MEDS: MORPHINE SULFATE 4 MG/ML SYRINGE IVP ONE (15:38)
[2023-09-30] MEDS: MORPHINE SULFATE (100 MG/2 ML) 100 MG in SODIUM CHLORIDE 0.9% 100 ML IV SCH (15:39)
[2023-09-30] MEDS: ATROPINE OPHTH SOLN 1% 5ML BTL SUBLINGUAL PRN (15:49)
[2023-09-30] MEDS: SCOPOLAMINE 1 MG/72 HR PATCH TRANSDERM SCH (15:49)
--- NOTE | 2023-09-30 16:23 | P.PN ---
Progress Note - Text Progress Note Date: 09/30/23 Came to see patient. Nurse reported that patient has been terminally weaned, and is comfort care. We will sign off.
--- NOTE | 2023-09-30 18:11 | P.DS ---
Providers Date of admission: 09/26/23 20:44 Expected date of discharge: 09/30/23 Attending physician: Candy Leigh MD Consults: 09/26/23 20:37 Consult Physician Routine Consulting Provider: Armando Carlson Consult Reason/Comments: arrest Do you want consulting provider notified?: Yes 09/26/23 21:02 Consult Physician Routine Consulting Provider: Uriel Howell Consult Reason/Comments: icu Do you want consulting provider notified?: Yes 09/26/23 21:06 Consult Physician Routine Consulting Provider: [facility] Consult Reason/Comments: Post Interventional Patient Do you want consulting provider notified?: Already Contacted 09/27/23 14:30 Consult Physician Urgent Consulting Provider: Leeanna Galvin Consult Reason/Comments: Abnormal CT Do you want consulting provider notified?: Yes Primary care physician: Stated None Hospital Course: Discharge Diagnosis: on 09/30/2023 Oqb-bo-qycikfle arrest Non-ST segment elevated myocardial infarction Ischemic cardiomyopathy, ejection fraction 35 to 40% Acute encephalopathy, possible anoxic Acute Hypoxic respiraotry Failure secondary to above Transient A. flutter, 1 episode Hypertension Fevers with increased sputum production, possible aspiration pneumonia Prediabetes with A1c 6.4 Class 3 obesity with BMI 47.7 Transaminitis, suspect ischemic Hospital Course: Patient is a 62-year-old male with known gout, hypertension, and morbid obesity who presented to the ER with CPR in progress. Patient had hospital arrest. Patient was seen by cardiology in the emergency department and was diagnosed with possible ST segment elevation myocardial infarction and was taken directly to the [facility] where he was found to have an 80% mid LAD lesion, 60 to 70% distal LAD lesion, 30% lesion of the left circumflex, and 50 to 60% lesion of the RCA. Patient underwent stenting of the mid LAD. Dual antiplatelet medications and aggressive risk factor modification were recommended. He was transferred to the ICU. Pulmonary critical care were consulted. Patient was noted to be in atrial flutter with slow ventricular response. He was started on tube feedings. He underwent an echocardiogram which demonstrated globally decreased contractility with ejection fraction 35 to 40%. He underwent EEG which showed generalized cerebral dysfunction. Neurology was consulted, it was felt he had poor neurologic prognosis. Patient was noted to have significant secretions and a fever and therefore Zosyn was empirically added. Patient underwent right radial art line placement on 09/27/2023 and subsequently had a left femoral triple-lumen catheter placed on 09/28/2023. He also underwent bronchial alveolar lavage secondary to under replacement of ET 2 and increased secretions on . On attempting of weaning trial on 09/29/2023 patient became tachycardic and hypoxic. He continued to spike fevers despite the addition of Zosyn. On 09/29/2023 he necessitated the use of a paralytic to become synchronous with the vent. On the afternoon of 09/30/2023 he again became hypoxic and underwent urgent bronchoscopy. At that point in time family had a discussion with critical care and they decided to make the patient comfort measures. He passed peacefully in the presence of his family on 09/30/2023 at 1622. Patient seen and examined at bedside prior totransition to comfort care. Vital signs reviewed and stable. General: ill appearing, mod distress Cardiovascular: S1S2 reg, no murmur Lungs: COurse bs b/l bilateral, no rhonchi, no rales, no accessory muscle use Abdominal: Soft, nontender to palpation, no guarding, no appreciable organomegaly Neuro: sedated and paralized on vent A total of 42 minutes of time were spent preparing this complex discharge summary. Patient was This dictation was prepared using [employer] voice recognition software. Though every attempt is made to correct errors during dictation some may still exist. Plan - Discharge Summary Discharge Rx Participant: No New Discharge Prescriptions: No Action amLODIPine BESYLATE [Amlodipine Besylate] 10 mg PO DAILY lisinopriL [Lisinopril] 40 mg PO DAILY Tamsulosin HCl [Flomax] 0.4 mg PO DAILY Indomethacin [Indocin] 50 mg PO TID PRN PRN Reason: gout pain allopurinoL [Zyloprim] 300 mg PO BID Tamsulosin [Flomax] 0.4 mg PO DAILY Discharge Medication List amLODIPine BESYLATE [Amlodipine Besylate] 10 mg PO DAILY 11/05/15 [History] lisinopriL [Lisinopril] 40 mg PO DAILY 11/05/15 [History] Tamsulosin HCl [Flomax] 0.4 mg PO DAILY 02/15/16 [History] Indomethacin [Indocin] 50 mg PO TID PRN 09/26/23 [History] Tamsulosin [Flomax] 0.4 mg PO DAILY 09/26/23 [History] allopurinoL [Zyloprim] 300 mg PO BID 09/26/23 [History] Follow up Appointment(s)/Referral(s): None,Stated [Primary Care Provider] - 1-2 days - Preliminary Cause of Preliminary Cause of : acute myocardial infarction
--- NOTE | 2023-09-30 20:38 | OP ---
OPERATIVE REPORT DATE OF SERVICE : PROCEDURE PERFORMED: Bronchoscopy and suctioning of endobronchial secretions. PREOPERATIVE DIAGNOSES: Recurrent desaturations, difficulty ventilating the patient and Ambu bagging, suspect mucus plugs in airways. POSTOPERATIVE DIAGNOSIS: Recurrent desaturations, difficulty ventilating the patient and Ambu bagging, suspect mucus plugs in airways; however, on bronchoscopy findings, there was no evidence of significant mucus plugging. ANESTHESIA USED: The patient was already on propofol and he was already on Nimbex. DESCRIPTION OF PROCEDURE: The patient was placed in the supine position, mechanically ventilated and adapter was applied to the endotracheal tube. Then the bronchoscope was advanced down into the airways, the endotracheal tube was noted to be in the proper position, thorough examination was done of the diamante, right upper lobe, right middle lobe, right lower lobe, left upper lobe, lingula, and left lower lobe. There was very minimal secretions in the airways, no evidence of mucus plugs, these were suctioned easily, until all the airways had been clear. There was again no evidence of significant mucus plugs. Procedure was well tolerated, and no complications. MMODL / IJN: [id number] /
[2023-09-30] MEDS ORDERED: ENOXAPARIN 80 MG/0.8 ML SYRINGE SQ SCH (21:00)
[2023-10-01 09:26] LABS: Nucleated Cells, Body Fluid 132500 /UL
== END 2023-09-30 18:36 | disposition expired | DRG 321 ==
LOC: EC 19:17 → 2SICU 20:44
PROVIDERS: ADMIT Internal Medicine; ATTEND Internal Medicine
PROC: 3E033RZ Introduction of Antiarrhythmic into Peripheral Vein, Percutaneous Approach (ICD-10-PCS; 2023-09-26)
PROC: 027034Z Dilation of Coronary Artery, One Artery with Drug-eluting Intraluminal Device, Percutaneous Approach (ICD-10-PCS; principal; 2023-09-26 19:35)
PROC: B2111ZZ Fluoroscopy of Multiple Coronary Arteries using Low Osmolar Contrast (ICD-10-PCS; principal; 2023-09-26 19:35)
PROC: 4A023N7 Measurement of Cardiac Sampling and Pressure, Left Heart, Percutaneous Approach (ICD-10-PCS; principal; 2023-09-26 19:35)
PROC: B240ZZ3 Ultrasonography of Single Coronary Artery, Intravascular (ICD-10-PCS; principal; 2023-09-26 19:35)
PROC: 0BH17EZ Insertion of Endotracheal Airway into Trachea, Via Natural or Artificial Opening (ICD-10-PCS; 2023-09-26 19:35)
PROC: 5A1945Z Respiratory Ventilation, 24-96 Consecutive Hours (ICD-10-PCS; 2023-09-26 19:35)
PROC: 0D9670Z Drainage of Stomach with Drainage Device, Via Natural or Artificial Opening (ICD-10-PCS; 2023-09-26 19:35)
PROC: 3E0G76Z Introduction of Nutritional Substance into Upper GI, Via Natural or Artificial Opening (ICD-10-PCS; 2023-09-27)
PROC: 03HY32Z Insertion of Monitoring Device into Upper Artery, Percutaneous Approach (ICD-10-PCS; 2023-09-27)
PROC: 4A133J1 Monitoring of Arterial Pulse, Peripheral, Percutaneous Approach (ICD-10-PCS; 2023-09-27)
PROC: 4A133B1 Monitoring of Arterial Pressure, Peripheral, Percutaneous Approach (ICD-10-PCS; 2023-09-27)
PROC: 06HY33Z Insertion of Infusion Device into Lower Vein, Percutaneous Approach (ICD-10-PCS; 2023-09-28)
PROC: 0B9C8ZX Drainage of Right Upper Lung Lobe, Via Natural or Artificial Opening Endoscopic, Diagnostic (ICD-10-PCS; 2023-09-28)
PROC: 0B9J8ZX Drainage of Left Lower Lung Lobe, Via Natural or Artificial Opening Endoscopic, Diagnostic (ICD-10-PCS; 2023-09-28)
PROC: 0B928ZZ Drainage of Carina, Via Natural or Artificial Opening Endoscopic (ICD-10-PCS; 2023-09-28)
PROC: 0B9F8ZX Drainage of Right Lower Lung Lobe, Via Natural or Artificial Opening Endoscopic, Diagnostic (ICD-10-PCS; 2023-09-28)
PROC: 0B9D8ZX Drainage of Right Middle Lung Lobe, Via Natural or Artificial Opening Endoscopic, Diagnostic (ICD-10-PCS; 2023-09-28)
PROC: 0B9G8ZX Drainage of Left Upper Lung Lobe, Via Natural or Artificial Opening Endoscopic, Diagnostic (ICD-10-PCS; 2023-09-28)
PROC: 0B9H8ZX Drainage of Lung Lingula, Via Natural or Artificial Opening Endoscopic, Diagnostic (ICD-10-PCS; 2023-09-28)
PROC: 0B9F8ZZ Drainage of Right Lower Lung Lobe, Via Natural or Artificial Opening Endoscopic (ICD-10-PCS; 2023-09-30)
PROC: 0B9H8ZZ Drainage of Lung Lingula, Via Natural or Artificial Opening Endoscopic (ICD-10-PCS; 2023-09-30)
PROC: 0B9J8ZZ Drainage of Left Lower Lung Lobe, Via Natural or Artificial Opening Endoscopic (ICD-10-PCS; 2023-09-30)
PROC: 0B928ZZ Drainage of Carina, Via Natural or Artificial Opening Endoscopic (ICD-10-PCS; 2023-09-30)
PROC: 0B958ZZ Drainage of Right Middle Lobe Bronchus, Via Natural or Artificial Opening Endoscopic (ICD-10-PCS; 2023-09-30)
PROC: 0B9C8ZZ Drainage of Right Upper Lung Lobe, Via Natural or Artificial Opening Endoscopic (ICD-10-PCS; 2023-09-30)
DX: I21.4 Non-ST elevation (NSTEMI) myocardial infarction (principal); G92.8 Other toxic encephalopathy; I63.9 Cerebral infarction, unspecified; J96.01 Acute respiratory failure with hypoxia; J69.0 Pneumonitis due to inhalation of food and vomit; N17.9 Acute kidney failure, unspecified; G93.1 Anoxic brain damage, not elsewhere classified; I47.20 Ventricular tachycardia, unspecified; I48.92 Unspecified atrial flutter; Z68.42 Body mass index [BMI] 45.0-49.9, adult; J98.11 Atelectasis; I46.2 Cardiac arrest due to underlying cardiac condition; I11.0 Hypertensive heart disease with heart failure; G93.89 Other specified disorders of brain; I50.9 Heart failure, unspecified; E66.01 Morbid (severe) obesity due to excess calories; Z66 Do not resuscitate; Z51.5 Encounter for palliative care; I49.01 Ventricular fibrillation; I25.5 Ischemic cardiomyopathy; I25.10 Atherosclerotic heart disease of native coronary artery without angina pectoris; J20.9 Acute bronchitis, unspecified; R73.03 Prediabetes; E78.5 Hyperlipidemia, unspecified; I44.0 Atrioventricular block, first degree; I45.10 Unspecified right bundle-branch block; N40.0 Benign prostatic hyperplasia without lower urinary tract symptoms; M10.9 Gout, unspecified; R74.01 Elevation of levels of liver transaminase levels; Z79.899 Other long term (current) drug therapy; Z87.891 Personal history of nicotine dependence; Z71.3 Dietary counseling and surveillance
CPT/HCPCS: 31500; 36415; 36600; 70450; 71045; 76937; 80048; 80053; 81001; 82805; 83036; 83605; 83735; 83880; 84100; 84484; 85025; 85027; 85610; 85730; 87040; 87070; 87086; 87102; 87116; 87205; 87206; 87496; 87498; 87502; 87529; 87634; 87635; 87798; 89050; 92978; 93005; 93306; 93458; 93970; 94002; 94003; 95822; 96374; 96375; 99291